=== PATIENT | female | born 1945 | race Caucasian/White ===

== ENCOUNTER 2021-06-13 12:06 | Inpatient (IN) ==
[2021-06-13] MEDS ORDERED: POLYETHYLENE (MIRALAX) 17 GM PACK PO PRN (13:27)
[2021-06-13] MEDS ORDERED: MAGNESIUM HYDROXIDE SUSP 30 ML UDC PO PRN (13:27)
--- NOTE | 2021-06-13 13:44 | History & Physical Report ---
Date of Service June 13, 2021 Assessment & Plan (1) Septic joint of right knee joint: Plan: Patient is 75-year-old female with history of chronic atrial fibrillation on Coumadin, SSS s/p pacemaker, CAD s/p PCI to RCA in 1998, DM II, HTN, dyslipidemia, CKD III, h/o Right TKA presented to [facility] as transfer from [facility] for right knee pain and edema and concern for right knee infection, fever. History RLE cellulitis treated 2 weeks ago with improvement. [facility] records: T: 38.1C, BP stable, Pulse 113-140. WBC of 13, Hgb 12.9, lactate and procalcitonin were WNL. CRP elevated at 15. Right knee x-ray obtained today at [facility]: No acute fracture, no acute hardware abnormality. At [facility] ER today ortho had aspirated right knee. Synovial fluid from today's aspiration: synovial fluid: Fluid clarity: Turbid, neutrophil %: 80% (0-25%), total nucleated cell count: 163,160 (0-180 cells/uL), RBC: 80,000 (<2000 cells/uL). Blood cultures were drawn today at [facility]. Follow these cultures. Patient given Zosyn, vancomycin, 1L NSS at [facility] prior to transfer Continue Zosyn, vancomycin IVF Requested to have xray images from [facility] to [facility] Ortho consult NPO midnight CBC, BMP in am (2) Chronic atrial fibrillation: Plan: Chronic atrial fibrillation on chronic Coumadin Atrial fibrillation RVR Patient had A. fib RVR at [facility]. Troponin T: WNL. Patient currently asymptomatic. Likely secondary to underlying infection and missed beta janusz medication Resume home metoprolol tartrate IV Lopressor prn INR: 2.9 Will need to optimize prior to surgical procedure Hold Coumadin secondary to surgical procedure. Monitor INR. (3) Diabetes mellitus, type II: Plan: A1c: 8.0 on 05/28/2021 Insulin-dependent Basal bolus insulin per protocol (4) CAD (coronary artery disease): Plan: Status post PCI to RCA 1998 Denies chest pain, shortness of breath Continue rosuvastatin, metoprolol tartrate (5) CKD (chronic kidney disease), stage III: Plan: Cr: 1.0. Baseline 1.0 Monitor renal functions, avoid nephrotoxic agents when possible (6) HTN (hypertension): Plan: Continue metoprolol tartrate (7) Sick sinus syndrome: Plan: S/p pacemaker (8) Dyslipidemia: Plan: Continue rosuvastatin DVT Prophylaxis INR currently therapeutic at 2.9. Monitor INR for further DVT prophylaxis Full code as per discussion with pt Follows with Dr Pino, Vitaliy Bourgeois for routine care Pt was seen and care coordinated with Dr Denson. See addendum History of Present Illness Chief Complaint: Right knee pain Primary Care Provider: Josiah Tran MD Patient is 75-year-old female with history of chronic atrial fibrillation on Coumadin, SSS s/p pacemaker, CAD s/p PCI to RCA in 1998, DM II, HTN, dyslipidemia, CKD III, h/o Right TKA presented to [facility] as transfer from [facility] for right knee pain and edema and concern for right knee infection. Outpatient records reviewed. Patient presented to [facility] today for right knee pain for 1 day and fever. Was noted to have T: 38.1C, BP stable, Pulse 113-140. Labs completed there today with WBC of 13, Hgb 12.9, lactate and procalcitonin were WNL. INR: 2.7, CRP elevated at 15. Right knee x-ray obtained today at [facility]: No acute fracture, no acute hardware abnormality. At [facility] ER today ortho had aspirated right knee with reported purulent fluid. Synovial fluid from today's aspiration: synovial fluid: Fluid clarity: Turbid, neutrophil %: 80% (0-25%), total nucleated cell count: 163,160 (0-180 cells/uL), RBC: 80,000 (<2000 cells/uL). Blood cultures were drawn today. Patient was given dose of Zosyn and vancomycin. Was given morphine 4mg, toradol 15mg, 1L NSS. Higher level of Ortho care was unavailable at [facility], patient request to be transferred to an [facility] secondary to prior TKA done by [facility]. Patient was admitted to [facility] on 05/27/2021- 05/30/2021 for possible sepsis, right lower extremity cellulitis. Patient had negative blood cultures on 05/27/2021. Patient finished linezolid 2 days ago. She denies any CP, SOB, palpitations. Other than her right knee pain denies other complaints. Did not have home medications today. Denies N/V/D/C, RAMIREZ, dizziness, syncope, vision changes, neck pain, orthopnea, cough, sore throat, choking, otalgia, rhinorrhea, abdominal pain, paresthesias, weakness, extremity weakness, rashes, urinary symptoms. Allergies Allergy/AdvReac Type Severity Reaction Status Date / Time propoxyphene Allergy Mild RASH Verified 04/21/09 03:21 diazepam Allergy Unknown SENSITIVITY Verified 04/21/09 03:21 meperidine AdvReac Mild "FEEL Verified 04/21/09 03:21 WEIRD" Home Medications Medication Instructions Recorded Confirmed Type alprazolam 0.25 mg tablet 0.25 mg PO HS PRN 06/13/21 06/13/21 History furosemide 40 mg tablet 40 mg PO DAILY PRN 06/13/21 06/13/21 History gabapentin 100 mg capsule 100 mg PO HS 06/13/21 06/13/21 History insulin glargine 100 unit/mL (3 40 unit SUBCUT BID 06/13/21 06/13/21 History mL) subcutaneous pen (Lantus Solostar U-100 Insulin) meloxicam 7.5 mg tablet 7.5 mg PO DAILY 06/13/21 06/13/21 History metoprolol tartrate 100 mg tablet 100 mg PO BID 06/13/21 06/13/21 History rosuvastatin 10 mg tablet 10 mg PO DAILY 06/13/21 06/13/21 History warfarin 1 mg tablet 1 mg PO UD 06/13/21 06/13/21 History warfarin 2 mg tablet 2 mg PO UD 06/13/21 06/13/21 History Past Med/Surg History Medical History (Updated 06/13/21 @ 21:09 by Mary Kumar PA-C) CAD (coronary artery disease) Chronic atrial fibrillation CKD (chronic kidney disease), stage III Diabetes mellitus, type II Dyslipidemia HTN (hypertension) Pacemaker Sick sinus syndrome Surgical History (Updated 06/13/21 @ 21:04 by Mary Kumar PA-C) History of appendectomy History of cardiac cath History of total knee arthroplasty Right - 2005. Dr Tran Family History (Updated 06/13/21 @ 21:04 by Mary Kumar PA-C) Mother Breast cancer Sister Breast cancer Social History (Updated 06/13/21 @ 21:05 by Mary Kumar PA-C) Smoking Status: Current some day smoker Cigarettes Per Day: 1; Hx Alcohol Use: Yes Alcohol Intake Frequency: Monthly or Less Hx Substance Use: No Communication Ability: Effective Dessert Cup Machine Feeder Required: No Beliefs That Will Affect Care: None Current Living Situation: Alone How many Children do You have: 3 Other Information That Helps Us Care for You: No Feels Safe at Home: Yes Safety Concerns: Feels Safe At This Time Assistive Devices: Cane and Walker Review of Systems Review of Systems: All systems reviewed & are unremarkable except as noted in HPI & below Physical Exam Physical Exam: General: no distress, obese Head: normocephalic, atraumatic Eyes: conjunctiva non-injected, anicteric ENT: normal inspection external ears, nose, mucous membranes moist Neck: supple, trachea midline Lungs: clear, no respiratory distress, no wheezing/rhonchi/rales CV: irregularly irregular, rate 132, no murmur, 1+ pretibial edema Abd: protuberant, normal BS, soft, non-tender Ext: no cyanosis, no calf tenderness, no erythema of lower legs, RLE: +edema and tenderness to palpation right knee Neuro: A&O x 3, no focal deficits noted, normal affect Skin: warm, dry Results & Data Results & Data ([facility]) Vital Signs (Past 12 Hours) Vital Signs Temp Pulse Resp BP Pulse Ox 38.1 C H 136 H 20 103/72 94 06/13/21 13:15 06/13/21 13:15 06/13/21 13:15 06/13/21 13:15 06/13/21 13:15 Laboratory Results Short CBC 06/13/21 Range/Units 14:59 WBC 20.87 H (4.8-10.8) K/uL Hgb 11.3 L (12.0-16.0) g/dL Hct 33.7 L (37-47) % Plt Count 86 L (130-400) K/uL BMP 06/13/21 14:59 Sodium 135 L Potassium 4.1 Chloride 104 Carbon Dioxide 24 BUN 25 H Creatinine 1.02 Glucose 91 Calcium 8.5 Liver Function 06/13/21 Range/Units 14:59 Total Bilirubin 1.5 H (0.2-1.0) mg/dl AST 22 (13-39) U/L ALT 19 (7-52) U/L Alkaline Phosphatase 67 (34-104) U/L Albumin 3.6 (3.4-5.0) gm/dl Diagnostic Findings Knee X-Ray 06/13/21 16:08 XR knee RT 1 or 2V routine CLINICAL HISTORY: right septic knee. Right knee pain. COMPARISON STUDY: Right knee 12/17/2005. FINDINGS: There is a right total knee arthroplasty. The hardware appears intact. No fracture or dislocation. No abnormal periprosthetic lucency. No significant knee effusion. There is anterior soft tissue swelling. IMPRESSION: 1. Anterior soft tissue swelling within the right knee. 2. Right total knee arthroplasty. No abnormal periprosthetic lucency. 3. No acute fractures. ACT 112: Negative or not required by law. Electronically signed by: Tho Finnegan M.D. 06/13/2021 9:03 PM Code Status & VTE Plan VTE Prophylaxis Plan VTE Prophylaxis will be ordered: Yes Supervising Physician Co-Signing Physician Notes Patient is a 75-year-old female with history of chronic atrial fibrillation on anticoagulation with Coumadin, coronary artery disease, CKD and other medical problems presents with history of right knee pain. Patient had right TKA many years ago. She denies any trauma. States having worsening right knee pain associated with fever, difficulty with ambulation. Please review HPI for complete details of presentation. Patient had arthrocentesis while at [facility]. Blood work suggestive of leukocytosis 20 K, hemoglobin 11.3, thrombocytopenia 86K, INR therapeutic at 2.9, sodium 135, glucose 102, lactate 2.1, magnesium 1.5, total bilirubin 1.5. X-ray suggestive of anterior soft tissue swelling within the right knee, no acute fractures. EKG suggestive of A. fib RVR. On exam patient is obese, no apparent distress, normocephalic atraumatic, EOMI, decreased breath sounds, clear to auscultation, irregularly irregular rhythm, tachycardic, no murmur, trace bilateral lower extremity edema, right knee swelling, tender. Abdomen soft, nontender, normal bowel sounds, alert, awake, oriented, grossly no focal deficits. Patient is admitted for management of right knee septic arthritis, A. fib RVR. Agree with starting on broad-spectrum antibiotics with Vanco, Zosyn. Blood cultures were obtained while at [facility]. Orthopedics consulted. Resume home metoprolol. IV Lopressor as needed. Will need to hold Coumadin for today. Consider reversing INR tomorrow with Vit K if patient plan for surgery tomorrow. Given A. fib RVR, no plan to reverse INR today. Consider cardiology evaluation if needed. I personally reviewed the record. Patient is interviewed and examined at bedside. Patient's care is coordinated with Mary Kumar PA-C. Please refer to the documentation above for details of patient's presentation and for discussion of other issues.
[2021-06-13] MEDS ORDERED: CARBOHYDRATES FOR HYPOGLYCEMIA PO PRN (14:19)
[2021-06-13] MEDS ORDERED: GLUCOSE 40% GEL 15 GM TUBE PO PRN (14:19)
[2021-06-13] MEDS ORDERED: GLUCAGON FOR INJ 1 MG VIAL SQ PRN (14:19)
[2021-06-13] MEDS ORDERED: DEXTROSE 50% 50 ML SYRINGE IV PRN (14:19)
[2021-06-13] MEDS ORDERED: GLUCOSE 10 TABS/TUBE PO PRN (14:19)
[2021-06-13] MEDS ORDERED: METOPROLOL TARTRATE 1 MG/ML VIAL IV STA (14:39)
[2021-06-13] MEDS ORDERED: oxyCODONE HCL IR 5 MG TAB (IMMEDIATE RELEASE) PO PRN (14:40)
[2021-06-13] MEDS ORDERED: CONSULT PHARMACY STA (14:55)
[2021-06-13] MEDS ORDERED: PATIENT'S HEIGHT AND/OR WEIGHT NEEDED SCH (15:15)
[2021-06-13] MEDS ORDERED: PIPERACILL/TAZOBAC CONSULT ACTIVE PRN (15:25)
[2021-06-13] MEDS ORDERED: VANCOMYCIN CONSULT ACTIVE PRN (15:25)
[2021-06-13 15:31] LABS: Albumin Globulin Ratio 1.1 (0.9-2); Albumin Level 3.6 gm/dl (3.4-5.0); BUN Creatinine Ratio 24.5 (10-20); Bilirubin,Total 1.5 mg/dl (0.2-1.0); Calcium 8.5 mg/dl (8.5-10.1); Creatinine Clr Calc Pharmacy 54.7 ml/min; Est GFR (African American) 62.3 ml/min; Est GFR (Non-African American) 53.8 ml/min; Globulin 3.2 gm/dl (2.5-4.0); Magnesium 1.5 mg/dl (1.7-2.4); Potassium 4.1 mmol/L (3.5-5.1); Total Protein 6.8 gm/dl (6.0-8.3)
[2021-06-13] MEDS: METOPROLOL TARTRATE 100 MG TAB PO SCH ×2 (15:48→21:15)
[2021-06-13 15:57] LABS: INR 2.9 (0.9-1.1); Partial Thromboplastin Ratio 1.6; Partial Thromboplastin Time 42.7 Seconds (21.0-31.0); Prothrombin Time 29.6 Seconds (9.0-12.0)
[2021-06-13] MEDS ORDERED: PIPERACILLIN/TAZOBACTAM 4.5 GM in DEXTROSE 5% 100 ML IV ONE (16:00)
[2021-06-13 16:11] LABS: Basophils # (auto) 0.01 K/uL (0-0.2); Hematocrit (blood only) 33.7 % (37-47); Hemoglobin 11.3 g/dL (12.0-16.0); Immature Granulocytes # (auto) 0.05 K/uL (0.00-0.02); Immature Granulocytes % (auto) 0.2 %; Lymphocytes # (auto) 2.01 K/uL (1.2-3.4); Lymphocytes % (auto) 9.6 %; Mean Corpuscular Hemoglobin 30.4 pg (25-34); Mean Corpuscular Hgb Conc 33.5 g/dL (32-36); Mean Corpuscular Volume 90.6 fL (80-100); Mean Platelet Volume 10.5 fL (7.4-10.4); Monocytes # (auto) 1.52 K/uL (0.11-0.59); Monocytes % (auto) 7.3 %; Neutrophils # (auto) 17.28 K/uL (1.4-6.5); Neutrophils % (auto) 82.9 %; Platelet Count 86 K/uL (130-400); Platelet Estimate Decreased (Normal); RDW Coefficient of Variation 13.8 % (11.5-14.5); RDW Standard Deviation 45.9 fL (36.4-46.3); Red Blood Count 3.72 M/uL (4.2-5.4); White Blood Count 20.87 K/uL (4.8-10.8)
[2021-06-13] MEDS ORDERED: PIPERACILLIN/TAZOBACTAM 4.5 GM in DEXTROSE 5% 100 ML IV SCH ×2 (16:30→22:00)
--- NOTE | 2021-06-13 17:07 | Anesthesiology Consultation ---
Date of Service June 13, 2021 Assessment & Plan (1) Encounter for pre-operative examination: Chart Review Chart Review: Pending: Refer to Additional Notes / Consult section and Patient NOT seen in Pre Admission Testing Patient currently in Afib with RVR, not optimized for proposed procedure, recommend optimization of arrhythmia prior to planned procedure Consults Requested none History Surgery Operation Date: 06/14/21 07:55 Proposed Procedures p Right Knee Polyethylene Bearing Exchange, Irrigation and Debridement Total Knee Arthroplasty - Josiah Tran MD Height/Weight Height: 5 ft 4 in Weight: 99.79 kg Allergies Allergy/AdvReac Type Severity Reaction Status Date / Time propoxyphene Allergy Mild RASH Verified 04/21/09 03:21 diazepam Allergy Unknown SENSITIVITY Verified 04/21/09 03:21 meperidine AdvReac Mild "FEEL Verified 04/21/09 03:21 WEIRD" Medications Home Medications Medication Instructions Recorded Confirmed Last Taken alprazolam 0.25 mg tablet 0.25 mg PO HS PRN 06/13/21 06/13/21 Unknown furosemide 40 mg tablet 40 mg PO DAILY PRN 06/13/21 06/13/21 Unknown gabapentin 100 mg capsule 100 mg PO HS 06/13/21 06/13/21 Unknown insulin glargine 100 unit/mL (3 40 unit SUBCUT BID 06/13/21 06/13/21 Unknown mL) subcutaneous pen (Lantus Solostar U-100 Insulin) meloxicam 7.5 mg tablet 7.5 mg PO DAILY 06/13/21 06/13/21 Unknown metoprolol tartrate 100 mg tablet 100 mg PO BID 06/13/21 06/13/21 06/12/21 rosuvastatin 10 mg tablet 10 mg PO DAILY 06/13/21 06/13/21 06/12/21 warfarin 1 mg tablet 1 mg PO UD 06/13/21 06/13/21 Unknown warfarin 2 mg tablet 2 mg PO UD 06/13/21 06/13/21 06/12/21 Active Medications Generic Name Dose Route Start Last Admin Trade Name Freq PRN Reason Stop Dose Admin Metoprolol Tartrate 100 mg 06/13/21 14:40 06/13/21 15:48 Metoprolol Tartrate 100 Mg Tab PO 07/13/21 14:39 100 mg BID NUPUR Administration Social History Smoking Status: Current some day smoker tobacco type: cigarettes Smoking cigarettes per day: 1 Hx Alcohol Use: Yes alcohol intake frequency: holidays/special occasions only Hx Substance Use: No Physical Exam Vital Signs Last Vital Signs Temp 99.7 F H 06/13/21 15:26 Pulse 150 H 06/13/21 15:48 Resp 20 06/13/21 15:26 BP 136/83 06/13/21 15:48 Pulse Ox 96 06/13/21 15:26 Testing Laboratory Results 06/13/21 14:59 06/13/21 14:59 PT 29.6 Seconds (9.0-12.0) H 06/13/21 14:59 INR 2.9 (0.9-1.1) H 06/13/21 14:59 APTT 42.7 Seconds (21.0-31.0) H 06/13/21 14:59 06/13/21 06/13/21 16:17 14:06 POC Glucose 102 H 96 Electrocardiogram Date: 06/13/21 Findings: + AFIB @ (with RVR), + LBBB and + RBBB
--- NOTE | 2021-06-13 17:11 | Pharmacy Report ---
Pharmacy Vanc AUC Short Note - Date of Service June 13, 2021 - Assessment & Plan Assessment 75 year old F receiving IV vancomycin and zosyn for treatment of bone and joint infection. Pertinent microbiologic data includes: none. Day # 1 of antimicrobial therapy. * Patient was transferred from [facility] for right knee pain and concern for right knee infection * Lab results shows leukocytosis, ANNEL, and elevated lactate * Loading doses of vancomycin and zosyn were administered at [facility] ER Plan Vancomycin * AUC/ERICA is the preferred PK/PD target for vancomycin * AUC guided dosing is effective and associated with decreased risk of nephrotoxicity compared to traditional trough targets * Loading dose: 2500 mg IV x 1 at [facility] * Maintenance dose: 1750 mg IV q24h * Trough level of 16 mcg/mL is predicted to achieve target AUC/ERICA of 400-600 mg/L.hr and may be associated with a 11 % risk of nephrotoxicity * Trough level would be obtained at steady state or sooner if renal function changes significantly Pharmacy will continue to follow and will adjust dose/frequency as necessary. Thank you.
--- NOTE | 2021-06-13 17:15 | Orthopedic Consultation ---
Date of Consultation June 13, 2021 Assessment & Plan (1) Infection of total right knee replacement: By history acute infection right knee replacement. Patient had primary knee replacement 2005 with revision total knee or components. This was performed due to the severity of the arthritis and instability. Patient is done excellent over the years. X-rays pending. Due to the acuity of the infection and patient being septic she is placed on intravenous antibiotics pending correction of her anticoagulation status and then could undergo polyethylene exchange and irrigation debridement placement of antibiotic beads. Discussed with her that this may correct the situation but if infection continues would have to have all implants removed and an antibiotic spacer. If the components look to be loose and she is going to need to go directly to an antibiotic spacer. If condition deteriorates rapidly she may need to be transferred to [facility] for definitive treatment History of Present Illness Reason for Consultation: Septic right knee replacement Attending Physician: Andre Denson MD History of Present Illness 75-year-old female had history of cellulitis in her right leg about a month ago and has an ipsilateral total knee replacement placed in 2005. She had no problems with the knee at all until 2 days ago when she had increased pain and swelling and had aspirated at [facility] felt to be septic and transferred to [facility] for definitive care. Allergies Allergy/AdvReac Type Severity Reaction Status Date / Time propoxyphene Allergy Mild RASH Verified 04/21/09 03:21 diazepam Allergy Unknown SENSITIVITY Verified 04/21/09 03:21 meperidine AdvReac Mild "FEEL Verified 04/21/09 03:21 WEIRD" Home Medications Medication Instructions Recorded Confirmed Type alprazolam 0.25 mg tablet 0.25 mg PO HS PRN 06/13/21 06/13/21 History furosemide 40 mg tablet 40 mg PO DAILY PRN 06/13/21 06/13/21 History gabapentin 100 mg capsule 100 mg PO HS 06/13/21 06/13/21 History insulin glargine 100 unit/mL (3 40 unit SUBCUT BID 06/13/21 06/13/21 History mL) subcutaneous pen (Lantus Solostar U-100 Insulin) meloxicam 7.5 mg tablet 7.5 mg PO DAILY 06/13/21 06/13/21 History metoprolol tartrate 100 mg tablet 100 mg PO BID 06/13/21 06/13/21 History rosuvastatin 10 mg tablet 10 mg PO DAILY 06/13/21 06/13/21 History warfarin 1 mg tablet 1 mg PO UD 06/13/21 06/13/21 History warfarin 2 mg tablet 2 mg PO UD 06/13/21 06/13/21 History Patient History Social History Smoking Status: Current some day smoker Cigarettes Per Day: 1; Hx Alcohol Use: Yes Hx Substance Use: No Communication Ability: Effective Core Carrier Required: No Beliefs That Will Affect Care: None Current Living Situation: Alone How many Children do You have: 3 Other Information That Helps Us Care for You: No Feels Safe at Home: Yes Safety Concerns: Feels Safe At This Time Assistive Devices: Cane and Walker Review of Systems Review of Systems: In her usual state of health with no other complaints other than right knee pain disability. Currently does not feel sick other than some indigestion. No lightheadedness no chest pain. Physical Exam Physical Exam: Right knee has benign-appearing in incisional scar no erythema she does have swelling in the knee. There is no drainage no sinus tract. Cellulitis of right lower leg is resolved. She has mild edema in the lower extremity. Neurological exam is intact. Opposite leg is normal. Both legs are obese. Knee motion right knee she can fully extend it due to pain with range of motion 15 through 90 degrees at this time. Constitutional: Obesity BMI 37.8 Skin: Chronic mild skin discoloration pretibial area medially on the right lower leg but no erythema at this time. Results & Data ([facility]) Vital Signs (Past 12 Hours) Vital Signs Temp Pulse Pulse Resp BP BP Pulse Ox 06/13/21 15:48 150 H 136/83 06/13/21 15:26 37.6 C H 150 H 20 136/83 96 06/13/21 14:08 138 H 06/13/21 13:27 38.1 C H 136 H 20 103/72 94 06/13/21 13:15 38.1 C H 136 H 20 103/72 94 Pulse Ox 06/13/21 15:48 06/13/21 15:26 06/13/21 14:08 06/13/21 13:27 94 06/13/21 13:15 Laboratory Results White blood cell count 20.87, platelet count 86,000 Diagnostic Findings X-ray pending. Apparently by history images were obtained at [place] emergency room. Do not have access to laboratory results as of yet from knee aspiration.
[2021-06-13] MEDS ORDERED: MAGNESIUM SULFATE / D5W 1 GM/100 ML BAG IV ONE (17:30)
[2021-06-13] MEDS: INSULIN ASPART PER UNIT SC SCH ×2 (17:32→21:59)
[2021-06-13] MEDS: MoRPHine SULFATE 2 MG/ML CARP IV PRN (17:44)
--- NOTE | 2021-06-13 21:05 | XRay Report ---
XR knee RT 1 or 2V routine CLINICAL HISTORY: right septic knee. Right knee pain. COMPARISON STUDY: Right knee 12/17/2005. FINDINGS: There is a right total knee arthroplasty. The hardware appears intact. No fracture or dislo cation. No abnormal periprosthetic lucency. No significant knee effusion. There is anterior soft tiss ue swelling. IMPRESSION: 1. Anterior soft tissue swelling within the right knee. 2. Right total knee arthroplasty. No abnormal periprosthetic lucency. 3. No acute fractures. ACT 112: Negative or not required by law. Electronically signed by: Tho Finnegan M.D. 06/13/2021 9:03 PM
[2021-06-13] MEDS: GABAPENTIN 100 MG CAP PO SCH (21:14)
[2021-06-13] MEDS ORDERED: SODIUM CHLORIDE 0.9% 1000ML 1,000 ML IV SCH (21:15)
--- NOTE | 2021-06-13 21:17 | Electrocardiogram Report ---
Test Reason : Blood Pressure : / mmHG Vent. Rate : 129 BPM Atrial Rate : 147 BPM P-R Int : 000 ms QRS Dur : 124 ms QT Int : 310 ms P-R-T Axes : 000 110 008 degrees QTc Int : 454 ms Atrial fibrillation with rapid ventricular response Right bundle branch block Left posterior fascicular block Bifascicular block T wave abnormality, consider anterolateral ischemia Abnormal ECG When compared with ECG of 16-AUG-1997 11:47, Atrial fibrillation has replaced Sinus rhythm Vent. rate has increased BY 65 BPM (RBBB and left posterior fascicular block) is now Present Confirmed by Justice Shipley [id number] on 06/13/2021 9:16:29 PM Referred By: REFERRED SELF Confirmed By:Justice Shipley
[2021-06-13] MEDS: INSULIN GLARGINE SOLOSTAR 100 UNITS/ML 3 ML PEN SC SCH (21:58)
[2021-06-13] MEDS: PIPERACILLIN/TAZOBACTAM 4.5 GM in DEXTROSE 5% 100 ML IV SCH (23:27)
[2021-06-14] MEDS: METOPROLOL TARTRATE 1 MG/ML VIAL IV PRN ×2 (04:02→09:33)
[2021-06-14 07:43] LABS: Hematocrit (blood only) 30.5 % (37-47); Hemoglobin 10.5 g/dL (12.0-16.0); Mean Corpuscular Hemoglobin 30.8 pg (25-34); Mean Corpuscular Hgb Conc 34.4 g/dL (32-36); Mean Corpuscular Volume 89.4 fL (80-100); RDW Coefficient of Variation 14.2 % (11.5-14.5); RDW Standard Deviation 47.1 fL (36.4-46.3); Red Blood Count 3.41 M/uL (4.2-5.4); White Blood Count 17.08 K/uL (4.8-10.8)
[2021-06-14 07:51] LABS: Platelet Count 80 K/uL (130-400)
[2021-06-14 07:59] LABS: INR 2.2 (0.9-1.1); Prothrombin Time 22.4 Seconds (9.0-12.0)
[2021-06-14 08:48] LABS: BUN Creatinine Ratio 19.3 (10-20); Calcium 8.2 mg/dl (8.5-10.1); Creatinine Clr Calc Pharmacy 34.7 ml/min; Est GFR (African American) 35.9 ml/min; Magnesium 1.9 mg/dl (1.7-2.4); Potassium 4.2 mmol/L (3.5-5.1)
[2021-06-14] MEDS: ACETAMINOPHEN 325 MG TAB PO PRN (09:03)
[2021-06-14] MEDS: ROSUVASTATIN CALCIUM 10 MG TAB PO SCH (09:03)
[2021-06-14] MEDS: METOPROLOL TARTRATE 100 MG TAB PO SCH (09:03)
[2021-06-14] MEDS: INSULIN GLARGINE SOLOSTAR 100 UNITS/ML 3 ML PEN SC SCH ×2 (09:04→22:02)
[2021-06-14] MEDS: INSULIN ASPART PER UNIT SC SCH ×4 (09:05→22:02)
[2021-06-14] MEDS: PIPERACILLIN/TAZOBACTAM 4.5 GM in DEXTROSE 5% 100 ML IV SCH ×3 (09:20→23:10)
[2021-06-14] MEDS ORDERED: VANCOMYCIN HCL 1,750 MG in SODIUM CHLORIDE 0.9% 500 ML IV SCH (11:00)
[2021-06-14] MEDS ORDERED: PHYTONADIONE 5 MG in DEXTROSE 5% 50 ML IV ONE (11:30)
--- NOTE | 2021-06-14 11:30 | Cardiology Consultation ---
Date of Consultation June 14, 2021 Assessment & Plan (1) Septic joint of right knee joint: (2) Preop cardiovascular exam: (3) HTN (hypertension): (4) Atrial fibrillation with RVR: (5) Pacemaker: Patient admitted for septic knee joint. Start on broad spectrum antibiotics. Ortho consulted and plans for debridement of joint with placement of antibiotic beads. ' Pre op eval cardio eval requested due to afib with elevated ventricular rates. She has known, chronic afib. Ventricular rates are elevated due to sepsis, physiologic response. Will titrate metoprolol to 150 mg BID, at least temporarily, to aid with ventricular rates. She received 100 mg dose this morning and then received 50 mg at time of consult earlier today. Heart rates trending down on monitor. She has underlying single lead pacemaker in place, which would prevent any bradycardia with additional metoprolol. She is asymptomatic from cardiac perspective. No signs of CHF. No anginal complaints. Can also use IV metoprolol PRN for elevated rates. Hold coumadin for surgery. No further cardiac testing is warranted prior to planned ortho surgery. Case discussed with Dr. Del Valle. Will follow. Supervising Physician Co-Signing Physician Notes Patient seen and examined at the bedside. Unaware of her atrial fibrillation. Heart rate improved with titration of beta-janusz therapy. Denies chest pain, palpitations, or shortness of breath. Admitted with septic arthritis. PE: VSS. General: NAD, awake alert and orient x3. Heart: Irregular rhythm, borderline tachycardic, normal S1-S2. No murmur appreciated. Lungs: Clear bilateral, no rales, rhonchi, wheeze. Extremities: Right knee swelling. A/P: Agree with above PA-C history, physical exam, assessment and plan. Metoprolol titrated to 150 mg twice daily with improvement of heart rate control. Consider addition of diltiazem infusion if heart rate remains elevated despite titration of beta-janusz therapy. Single-chamber pacemaker in place to prevent bradycardia. INR is 2.2. Patient received 1 dose of 5 mg of vitamin K. No further cardiac testing or intervention is necessary prior to orthopedic procedure. History of Present Illness Reason for Consultation: Afib RVR Requesting Physician: Dr. Stovall Attending Physician: Dr. Del Valle History of Present Illness Patient is a 75 year old female who was admitted to [facility] for septic right knee joint. She is known to [facility] cardiology [employer] practice for history of chronic afib, sinus node dysfunction s/p single lead pacemaker, CAD s/p remote PCI to the RCA in 1998, dyslipidemia. Cardiology was consulted to due atrial fibrillation with elevated ventricular rates and preop eval. Patient report right lower extremity cellulitis for which she was admitted to [facility] approx 2 weeks ago and received IV antibiotics and oral antibiotics on discharge. During admission she was hypertensive and tachycardic but no med changes were made to beta janusz or antihypertensives on discharge. Yesterday she presented to [facility] once again for worsening right leg and knee pain and swelling. Found to have septic joint and transferred to [facility] for further evaluation/treatment with orthopedics. Started on IV antibiotics. Ortho consulted and plans to take to OR for debridement and placement of antibiotic beads. Due to afib with elevated ventricular rates, anesthesiology requesting cardiac evaluation. HR's ranging 110-140 at rest. Chronic afib. Coumadin on hold. At time of consult, patient feeling ok resting in bed. Denies chest pain or SOB. No fever or chills. No orthopnea, PND or edema. HR's ranging around 110 bpm. No erythema at pacer site. Ongoing right leg pain and knee pain noted. She is NPO for OR hopefully today. Allergies Allergy/AdvReac Type Severity Reaction Status Date / Time propoxyphene Allergy Mild RASH Verified 04/21/09 03:21 diazepam Allergy Unknown SENSITIVITY Verified 04/21/09 03:21 meperidine AdvReac Mild "FEEL Verified 04/21/09 03:21 WEIRD" Home Medications Medication Instructions Recorded Confirmed Type alprazolam 0.25 mg tablet 0.25 mg PO HS PRN 06/13/21 06/13/21 History furosemide 40 mg tablet 40 mg PO DAILY PRN 06/13/21 06/13/21 History gabapentin 100 mg capsule 100 mg PO HS 06/13/21 06/13/21 History insulin glargine 100 unit/mL (3 40 unit SUBCUT BID 06/13/21 06/13/21 History mL) subcutaneous pen (Lantus Solostar U-100 Insulin) meloxicam 7.5 mg tablet 7.5 mg PO DAILY 06/13/21 06/13/21 History metoprolol tartrate 100 mg tablet 100 mg PO BID 06/13/21 06/13/21 History rosuvastatin 10 mg tablet 10 mg PO DAILY 06/13/21 06/13/21 History warfarin 1 mg tablet 1 mg PO UD 06/13/21 06/13/21 History warfarin 2 mg tablet 2 mg PO UD 06/13/21 06/13/21 History Patient History Medical History (Updated 06/14/21 @ 13:16 by Myrna Azevedo PA-C) CAD (coronary artery disease) Chronic atrial fibrillation CKD (chronic kidney disease), stage III Diabetes mellitus, type II Dyslipidemia HTN (hypertension) Pacemaker Sick sinus syndrome Surgical History (Updated 06/13/21 @ 21:04 by Mary Kumar PA-C) History of appendectomy History of cardiac cath History of total knee arthroplasty Right - 2005. Dr Tran Family History (Updated 06/13/21 @ 21:04 by Mary Kumar PA-C) Mother Breast cancer Sister Breast cancer Social History (Updated 06/13/21 @ 21:05 by Mary Kumar PA-C) Smoking Status: Current some day smoker Cigarettes Per Day: 1; Hx Alcohol Use: Yes Alcohol Intake Frequency: Monthly or Less Hx Substance Use: No Communication Ability: Effective Computer Art Instructor Required: No Beliefs That Will Affect Care: None Current Living Situation: Alone How many Children do You have: 3 Other Information That Helps Us Care for You: No Feels Safe at Home: Yes Safety Concerns: Feels Safe At This Time Assistive Devices: Cane and Walker Review of Systems Review of Systems: All systems reviewed & are unremarkable except as noted in HPI & below Physical Exam Constitutional: WD/WN, vitals as above well developed; no acute distress Respiratory: normal respiratory effort, lungs clear to auscultation Cardiovascular: Rate/Rhythm: + tachycardic and + irregularly irregular Heart Sounds: normal S1 and normal S2; no murmur Vessels: no JVD Extremities: + edema (trace b/l ankle edema; ) Gastrointestinal (Abdomen): normal bowel sounds, soft, nontender, no hepatosplenomegaly Neurologic: PERRL, EOMI, accommodation nl, no face palsy, no dysarthria Psychiatric: A+Ox3, euthymic affect Results & Data ([facility]) Vital Signs (Past 12 Hours) Vital Signs Temp Pulse Pulse Resp BP BP Pulse Ox 06/14/21 09:33 142 H 148/79 H 06/14/21 08:08 37.8 C H 137 H 20 137/78 93 06/14/21 04:02 133 H 06/14/21 03:27 37.7 C H 121 H 16 115/66 96 06/14/21 03:23 118 H Laboratory Results 06/14/21 06/14/21 06/14/21 Range/Units 11:11 07:22 06:55 WBC (4.8-10.8) K/uL RBC (4.2-5.4) M/uL Hgb (12.0-16.0) g/dL Hct (37-47) % MCV (80-100) fL MCH (25-34) pg MCHC (32-36) g/dL RDW Std Deviation (36.4-46.3) fL RDW Coeff of Kavon (11.5-14.5) % Plt Count (130-400) K/uL MPV (7.4-10.4) fL Immature Gran % (Auto) % Neut % (Auto) % Lymph % (Auto) % Benzie % (Auto) % Eos % (Auto) % Baso % (Auto) % Neut # (Auto) (1.4-6.5) K/uL Lymph # (Auto) (1.2-3.4) K/uL Benzie # (Auto) (0.11-0.59) K/uL Eos # (Auto) (0-0.5) K/uL Baso # (Auto) (0-0.2) K/uL Immature Gran # (Auto) (0.00-0.02) K/uL Platelet Estimate (Normal) PT (9.0-12.0) Seconds INR (0.9-1.1) APTT (21.0-31.0) Seconds PTT Ratio Sodium 135 L (136-145) mmol/L Potassium 4.2 (3.5-5.1) mmol/L Chloride 104 (98-107) mmol/L Carbon Dioxide 23 (21-32) mmol/L Anion Gap 8 (3-11) BUN 31 H (6-23) mg/dl Creatinine 1.61 H D (0.6-1.2) mg/dl Est Cr Clr Drug Dosing 34.7 ml/min Est GFR ( Amer) 35.9 ml/min Est GFR (Non-Af Amer) 31.0 ml/min BUN/Creatinine Ratio 19.3 (10-20) Glucose 84 (70-99(Fasting)) mg/dl POC Glucose 114 H 102 H (70-99) mg/dl Lactate (0.4-2.0) mmol/L Calcium 8.2 L (8.5-10.1) mg/dl Magnesium 1.9 (1.7-2.4) mg/dl Total Bilirubin (0.2-1.0) mg/dl AST (13-39) U/L ALT (7-52) U/L Alkaline Phosphatase (34-104) U/L Total Protein (6.0-8.3) gm/dl Albumin (3.4-5.0) gm/dl Globulin (2.5-4.0) gm/dl Albumin/Globulin Ratio (0.9-2) SARS-CoV-2, RNA, NAAT (NEGATIVE) 06/14/21 06/14/21 06/13/21 Range/Units 06:55 06:55 22:18 WBC 17.08 H (4.8-10.8) K/uL RBC 3.41 L (4.2-5.4) M/uL Hgb 10.5 L (12.0-16.0) g/dL Hct 30.5 L (37-47) % MCV 89.4 (80-100) fL MCH 30.8 (25-34) pg MCHC 34.4 (32-36) g/dL RDW Std Deviation 47.1 H (36.4-46.3) fL RDW Coeff of Kavon 14.2 (11.5-14.5) % Plt Count 80 L (130-400) K/uL MPV 11.0 H (7.4-10.4) fL Immature Gran % (Auto) % Neut % (Auto) % Lymph % (Auto) % Benzie % (Auto) % Eos % (Auto) % Baso % (Auto) % Neut # (Auto) (1.4-6.5) K/uL Lymph # (Auto) (1.2-3.4) K/uL Benzie # (Auto) (0.11-0.59) K/uL Eos # (Auto) (0-0.5) K/uL Baso # (Auto) (0-0.2) K/uL Immature Gran # (Auto) (0.00-0.02) K/uL Platelet Estimate (Normal) PT 22.4 H (9.0-12.0) Seconds INR 2.2 H (0.9-1.1) APTT (21.0-31.0) Seconds PTT Ratio Sodium (136-145) mmol/L Potassium (3.5-5.1) mmol/L Chloride (98-107) mmol/L Carbon Dioxide (21-32) mmol/L Anion Gap (3-11) BUN (6-23) mg/dl Creatinine (0.6-1.2) mg/dl Est Cr Clr Drug Dosing ml/min Est GFR ( Amer) ml/min Est GFR (Non-Af Amer) ml/min BUN/Creatinine Ratio (10-20) Glucose (70-99(Fasting)) mg/dl POC Glucose (70-99) mg/dl Lactate 1.6 (0.4-2.0) mmol/L Calcium (8.5-10.1) mg/dl Magnesium (1.7-2.4) mg/dl Total Bilirubin (0.2-1.0) mg/dl AST (13-39) U/L ALT (7-52) U/L Alkaline Phosphatase (34-104) U/L Total Protein (6.0-8.3) gm/dl Albumin (3.4-5.0) gm/dl Globulin (2.5-4.0) gm/dl Albumin/Globulin Ratio (0.9-2) SARS-CoV-2, RNA, NAAT (NEGATIVE) 06/13/21 06/13/21 06/13/21 Range/Units 20:50 17:30 16:17 WBC (4.8-10.8) K/uL RBC (4.2-5.4) M/uL Hgb (12.0-16.0) g/dL Hct (37-47) % MCV (80-100) fL MCH (25-34) pg MCHC (32-36) g/dL RDW Std Deviation (36.4-46.3) fL RDW Coeff of Kavon (11.5-14.5) % Plt Count (130-400) K/uL MPV (7.4-10.4) fL Immature Gran % (Auto) % Neut % (Auto) % Lymph % (Auto) % Benzie % (Auto) % Eos % (Auto) % Baso % (Auto) % Neut # (Auto) (1.4-6.5) K/uL Lymph # (Auto) (1.2-3.4) K/uL Benzie # (Auto) (0.11-0.59) K/uL Eos # (Auto) (0-0.5) K/uL Baso # (Auto) (0-0.2) K/uL Immature Gran # (Auto) (0.00-0.02) K/uL Platelet Estimate (Normal) PT (9.0-12.0) Seconds INR (0.9-1.1) APTT (21.0-31.0) Seconds PTT Ratio Sodium (136-145) mmol/L Potassium (3.5-5.1) mmol/L Chloride (98-107) mmol/L Carbon Dioxide (21-32) mmol/L Anion Gap (3-11) BUN (6-23) mg/dl Creatinine (0.6-1.2) mg/dl Est Cr Clr Drug Dosing ml/min Est GFR ( Amer) ml/min Est GFR (Non-Af Amer) ml/min BUN/Creatinine Ratio (10-20) Glucose (70-99(Fasting)) mg/dl POC Glucose 155 H 102 H (70-99) mg/dl Lactate (0.4-2.0) mmol/L Calcium (8.5-10.1) mg/dl Magnesium (1.7-2.4) mg/dl Total Bilirubin (0.2-1.0) mg/dl AST (13-39) U/L ALT (7-52) U/L Alkaline Phosphatase (34-104) U/L Total Protein (6.0-8.3) gm/dl Albumin (3.4-5.0) gm/dl Globulin (2.5-4.0) gm/dl Albumin/Globulin Ratio (0.9-2) SARS-CoV-2, RNA, NAAT NEGATIVE (NEGATIVE) 06/13/21 06/13/21 06/13/21 Range/Units 14:59 14:59 14:59 WBC (4.8-10.8) K/uL RBC (4.2-5.4) M/uL Hgb (12.0-16.0) g/dL Hct (37-47) % MCV (80-100) fL MCH (25-34) pg MCHC (32-36) g/dL RDW Std Deviation (36.4-46.3) fL RDW Coeff of Kavon (11.5-14.5) % Plt Count (130-400) K/uL MPV (7.4-10.4) fL Immature Gran % (Auto) % Neut % (Auto) % Lymph % (Auto) % Benzie % (Auto) % Eos % (Auto) % Baso % (Auto) % Neut # (Auto) (1.4-6.5) K/uL Lymph # (Auto) (1.2-3.4) K/uL Benzie # (Auto) (0.11-0.59) K/uL Eos # (Auto) (0-0.5) K/uL Baso # (Auto) (0-0.2) K/uL Immature Gran # (Auto) (0.00-0.02) K/uL Platelet Estimate (Normal) PT (9.0-12.0) Seconds INR (0.9-1.1) APTT (21.0-31.0) Seconds PTT Ratio Sodium 135 L (136-145) mmol/L Potassium 4.1 (3.5-5.1) mmol/L Chloride 104 (98-107) mmol/L Carbon Dioxide 24 (21-32) mmol/L Anion Gap 7 (3-11) BUN 25 H (6-23) mg/dl Creatinine 1.02 (0.6-1.2) mg/dl Est Cr Clr Drug Dosing 54.7 ml/min Est GFR ( Amer) 62.3 ml/min Est GFR (Non-Af Amer) 53.8 ml/min BUN/Creatinine Ratio 24.5 H (10-20) Glucose 91 (70-99(Fasting)) mg/dl POC Glucose (70-99) mg/dl Lactate 2.1 H* (0.4-2.0) mmol/L Calcium 8.5 (8.5-10.1) mg/dl Magnesium Cancelled 1.5 L (1.7-2.4) mg/dl Total Bilirubin 1.5 H (0.2-1.0) mg/dl AST 22 (13-39) U/L ALT 19 (7-52) U/L Alkaline Phosphatase 67 (34-104) U/L Total Protein 6.8 (6.0-8.3) gm/dl Albumin 3.6 (3.4-5.0) gm/dl Globulin 3.2 (2.5-4.0) gm/dl Albumin/Globulin Ratio 1.1 (0.9-2) SARS-CoV-2, RNA, NAAT (NEGATIVE) 06/13/21 06/13/21 06/13/21 Range/Units 14:59 14:59 14:06 WBC 20.87 H (4.8-10.8) K/uL RBC 3.72 L (4.2-5.4) M/uL Hgb 11.3 L (12.0-16.0) g/dL Hct 33.7 L (37-47) % MCV 90.6 (80-100) fL MCH 30.4 (25-34) pg MCHC 33.5 (32-36) g/dL RDW Std Deviation 45.9 (36.4-46.3) fL RDW Coeff of Kavon 13.8 (11.5-14.5) % Plt Count 86 L (130-400) K/uL MPV 10.5 H (7.4-10.4) fL Immature Gran % (Auto) 0.2 % Neut % (Auto) 82.9 % Lymph % (Auto) 9.6 % Benzie % (Auto) 7.3 % Eos % (Auto) 0.0 % Baso % (Auto) 0.0 % Neut # (Auto) 17.28 H (1.4-6.5) K/uL Lymph # (Auto) 2.01 (1.2-3.4) K/uL Benzie # (Auto) 1.52 H (0.11-0.59) K/uL Eos # (Auto) 0.00 (0-0.5) K/uL Baso # (Auto) 0.01 (0-0.2) K/uL Immature Gran # (Auto) 0.05 H (0.00-0.02) K/uL Platelet Estimate Decreased L (Normal) PT 29.6 H (9.0-12.0) Seconds INR 2.9 H (0.9-1.1) APTT 42.7 H (21.0-31.0) Seconds PTT Ratio 1.6 Sodium (136-145) mmol/L Potassium (3.5-5.1) mmol/L Chloride (98-107) mmol/L Carbon Dioxide (21-32) mmol/L Anion Gap (3-11) BUN (6-23) mg/dl Creatinine (0.6-1.2) mg/dl Est Cr Clr Drug Dosing ml/min Est GFR ( Amer) ml/min Est GFR (Non-Af Amer) ml/min BUN/Creatinine Ratio (10-20) Glucose (70-99(Fasting)) mg/dl POC Glucose 96 (70-99) mg/dl Lactate (0.4-2.0) mmol/L Calcium (8.5-10.1) mg/dl Magnesium (1.7-2.4) mg/dl Total Bilirubin (0.2-1.0) mg/dl AST (13-39) U/L ALT (7-52) U/L Alkaline Phosphatase (34-104) U/L Total Protein (6.0-8.3) gm/dl Albumin (3.4-5.0) gm/dl Globulin (2.5-4.0) gm/dl Albumin/Globulin Ratio (0.9-2) SARS-CoV-2, RNA, NAAT (NEGATIVE) Diagnostic Findings Telemetry reviewed - Persistent afib with elevated ventricular rates, initially 120-140, but now trending down to 100-120. EKG on arrival Atrial fibrillation with RVR RBBB ST/T wave abnormality in anterolateral leads. Chest xray completed at outside facility yesterday: No acute process. Medications Administered Current Inpatient Medications Acetaminophen (Acetaminophen 325 Mg Tab) 650 mg PO Q4H PRN PRN Reason: Pain or Fever Stop: 07/13/21 13:26 Last Admin: 06/14/21 09:03 Dose: 650 mg Documented by: Alprazolam (Alprazolam 0.25 Mg Tablet) 0.25 mg PO HS PRN PRN Reason: Anxiety Stop: 07/13/21 17:36 Dextrose (Dextrose 50% 50 Ml Syringe) 25 - 50 ml IV UD PRN; Protocol PRN Reason: Hypoglycemia Protocol Stop: 07/13/21 14:18 Gabapentin (Gabapentin 100 Mg Cap) 100 mg PO HS [facility] Stop: 07/13/21 20:59 Last Admin: 06/13/21 21:14 Dose: 100 mg Documented by: Glucagon (Glucagon For Inj 1 Mg Vial) 1 mg SQ UD PRN; Protocol PRN Reason: Hypoglycemia Protocol Stop: 07/13/21 14:18 Glucose (Glucose 10 Tabs/Tube) 4 - 8 tabs PO UD PRN; Protocol PRN Reason: Hypoglycemia Protocol Stop: 07/13/21 14:18 Glucose (Glucose 40% Gel 15 Gm Tube) 15 - 30 gm PO UD PRN; Protocol PRN Reason: Hypoglycemia Protocol Stop: 07/13/21 14:18 Piperacillin Sod/Tazobactam (Sod 4.5 gm/ Dextrose) 120 mls @ 30 mls/hr IV Q8H NUPUR; Protocol Stop: 07/26/21 00:00 Last Admin: 06/14/21 09:20 Dose: 30 mls/hr Documented by: Sodium Chloride (Nss 1000ml) 1,000 mls @ 100 mls/hr IV .Q10H [facility] Stop: 07/14/21 11:14 Last Admin: 06/14/21 12:07 Dose: 100 mls/hr Documented by: Insulin Aspart (Insulin Aspart Per Unit) 0 units SC ACHS NUPUR Stop: 07/13/21 16:29 Last Admin: 06/14/21 12:07 Dose: Not Given Documented by: Insulin Glargine (Insulin Glargine Solostar 100 Units/Ml 3 Ml Pen) 0 - 40 units SC BID [facility] Stop: 07/13/21 20:59 Last Admin: 06/14/21 09:04 Dose: 20 units Documented by: Magnesium Hydroxide (Magnesium Hydroxide Susp 30 Ml Udc) 30 ml PO Q12H PRN PRN Reason: Constipation Stop: 07/13/21 13:26 Metoprolol Tartrate (Metoprolol Tartrate 1 Mg/Ml Vial) 5 mg IV Q6 PRN; Protocol PRN Reason: Tachycardia Stop: 07/13/21 17:59 Last Admin: 06/14/21 09:33 Dose: 5 mg Documented by: Metoprolol Tartrate (Metoprolol Tartrate 50 Mg Tab) 150 mg PO BID NUPUR Stop: 07/14/21 20:59 Miscellaneous (Carbohydrates For Hypoglycemia ) 15 - 30 gm PO UD PRN PRN Reason: Hypoglycemia Protocol Stop: 07/13/21 14:18 Miscellaneous Information (Piperacill/Tazobac Consult Active) 1 ea N/A UD PRN PRN Reason: Consult Stop: 07/13/21 15:24 Morphine Sulfate (Morphine Sulfate 2 Mg/Ml Carp) 2 mg IV Q3H PRN PRN Reason: Severe Pain Stop: 06/27/21 14:39 Last Admin: 06/13/21 17:44 Dose: 2 mg Documented by: Ondansetron HCl (Ondansetron Inj 2 Mg/Ml 2 Ml Vial) 4 mg IV Q6H PRN PRN Reason: Nausea Stop: 07/13/21 13:26 Oxycodone HCl (Oxycodone Hcl Ir 5 Mg Tab (Immediate Release)) 5 mg PO Q6H PRN PRN Reason: Moderate Pain Stop: 06/27/21 14:39 Polyethylene Glycol (Polyethylene (Miralax) 17 Gm Pack) 17 gm PO DAILY PRN PRN Reason: Constipation Stop: 07/13/21 13:26 Rosuvastatin Calcium (Rosuvastatin Calcium 10 Mg Tab) 10 mg PO DAILY NUPUR Stop: 07/14/21 08:59 Last Admin: 06/14/21 09:03 Dose: 10 mg Documented by:
[2021-06-14] MEDS ORDERED: METOPROLOL TARTRATE 50 MG TAB PO ONE (11:37)
[2021-06-14] MEDS: SODIUM CHLORIDE 0.9% 1000ML 1,000 ML IV SCH ×2 (12:07→21:58)
[2021-06-14 15:38] LABS: INR 1.8 (0.9-1.1); Prothrombin Time 18.5 Seconds (9.0-12.0)
--- NOTE | 2021-06-14 17:20 | Hospitalist Progress Note ---
Date of Service June 14, 2021 Assessment & Plan (1) Septic joint of right knee joint: Plan: per admitting team with addendum: Patient is 75-year-old female with history of chronic atrial fibrillation on Coumadin, SSS s/p pacemaker, CAD s/p PCI to RCA in 1998, DM II, HTN, dyslipidemia, CKD III, h/o Right TKA presented to [facility] as transfer from [facility] ER for right knee pain and edema and concern for right knee infection, fever. History RLE cellulitis treated 2 weeks ago with improvement. [facility] records: T: 38.1C, BP stable, Pulse 113-140. WBC of 13, Hgb 12.9, lactate and procalcitonin were WNL. CRP elevated at 15. Right knee x-ray obtained today at [facility]: No acute fracture, no acute hardware abnormality. At [facility] ER today ortho had aspirated right knee. Synovial fluid from today's aspiration: synovial fluid: Fluid clarity: Turbid, neutrophil %: 80% (0-25%), total nucleated cell count: 163,160 (0-180 cells/uL), RBC: 80,000 (<2000 cells/uL). Blood cultures were drawn today at [facility]. Follow these cultures. Patient given Zosyn, vancomycin, 1L NSS at [facility] prior to transfer Continue Zosyn, vancomycin IVF Requested to have xray images from [facility] to [facility] Ortho consult NPO midnight CBC, BMP in am 06/14 ff up synovial fluid and blood cultures continue Dapto + Zosyn, IV fluids Ortho planning for OR tomorrow afternoon Vit K given, INR 1.8 INR daily (2) Chronic atrial fibrillation: Plan: Chronic atrial fibrillation on chronic Coumadin Atrial fibrillation RVR Patient had A. fib RVR at [facility] ER. Troponin T: WNL. Patient currently asymptomatic. Likely secondary to underlying infection and missed beta janusz medication Resume home metoprolol tartrate IV Lopressor prn INR: 2.9 Will need to optimize prior to surgical procedure Hold Coumadin secondary to surgical procedure. Monitor INR. 06/14 [employer] Pay[employer]ist consulted for RVR Metoprolol increased to 150mg BID (3) Diabetes mellitus, type II: Plan: A1c: 8.0 on 05/28/2021 Insulin-dependent Basal bolus insulin per protocol (4) CAD (coronary artery disease): Plan: Status post PCI to RCA 1998 Denies chest pain, shortness of breath Continue rosuvastatin, metoprolol tartrate (5) CKD (chronic kidney disease), stage III: Plan: Acute Renal Failure on CKD 3 Cr: 1.0. Baseline 1.0 crea 1.6 likely from sepsis, dehydration IV fluids monitor closely Monitor renal functions, avoid nephrotoxic agents when possible (6) HTN (hypertension): Plan: Continue metoprolol tartrate (7) Sick sinus syndrome: Plan: S/p pacemaker (8) Dyslipidemia: Plan: Continue rosuvastatin DVT Prophylaxis INR 1.8 resume coumadin when ok with Ortho Full code as per discussion with pt Follows with Vitaliy Mcmillan for routine care Admission and Anticipated Discharge Date Admission Date: June 13, 2021 Subjective ff up for sepsis, septic arthritis, a fib in rvr, etc seen resting in bed, not in distress reports pain on the r knee- moderate to severe no chest pain, dyspnea, palpitations, dizziness no abdominal pain, nausea, problems with urination or BM hungry no other symptoms Review of Systems Review of Systems: all noted and negative except for above Physical Exam Physical Exam: General- oriented x 3, not in distress, speaks in sentences with no effort or accessory muscle use Head- atraumatic Eyes- PERRL, EOMI, anicteric ENT- oropharynx clear Neck- supple, no JVD, no adenopathy, no thyromegaly; carotids +2/2, no bruits appreciated Lungs- clear to auscultation bilaterally, no rales/wheezes Heart- normal rate, irregularly irregular rhythm; no murmur, no gallop, no rub appreciated Abdomen- normal bowel sounds, nondistended, soft, nontender, no masses or hepatosplenomegaly Extremities- no pretibial edema, no calf tenderness; peripheral pulses intact R knee: moderate edema, mild warmth and tenderness Neuro- alert, oriented x 3; CN 2-12 grossly intact; motor 5/5 bilaterally;sensation 100% on all extremities; no other gross focal neurologic deficits Skin- warm & dry Results & Data Results & Data ([facility] [place]) Vital Signs (Past 12 Hours) Vital Signs Temp Pulse Pulse Resp BP BP Pulse Ox 06/14/21 16:38 36.8 C 104 H 19 120/58 L 95 06/14/21 11:55 36.7 C 102 H 20 115/73 95 06/14/21 09:33 142 H 148/79 H 06/14/21 08:08 37.8 C H 137 H 20 137/78 93 all noted and reviewed including below
[2021-06-14] MEDS: GABAPENTIN 100 MG CAP PO SCH (20:14)
[2021-06-14] MEDS: METOPROLOL TARTRATE 50 MG TAB PO SCH (20:15)
[2021-06-14] MEDS: MoRPHine SULFATE 2 MG/ML CARP IV PRN (21:53)
[2021-06-15] MEDS: METOPROLOL TARTRATE 1 MG/ML VIAL IV PRN (04:05)
[2021-06-15 07:44] LABS: INR 1.2 (0.9-1.1); Prothrombin Time 12.8 Seconds (9.0-12.0)
[2021-06-15 07:46] LABS: Hematocrit (blood only) 30.1 % (37-47); Hemoglobin 10.2 g/dL (12.0-16.0); Mean Corpuscular Hemoglobin 30.6 pg (25-34); Mean Corpuscular Hgb Conc 33.9 g/dL (32-36); Mean Corpuscular Volume 90.4 fL (80-100); RDW Coefficient of Variation 14.1 % (11.5-14.5); Red Blood Count 3.33 M/uL (4.2-5.4); White Blood Count 14.52 K/uL (4.8-10.8)
[2021-06-15 07:55] LABS: Mean Platelet Volume 11.2 fL (7.4-10.4); Platelet Count 72 K/uL (130-400)
[2021-06-15 08:21] LABS: Basophils # (auto) 0.01 K/uL (0-0.2); Basophils % (auto) 0.1 %; Eosinophils # (auto) 0.03 K/uL (0-0.5); Eosinophils % (auto) 0.2 %; Immature Granulocytes # (auto) 0.04 K/uL (0.00-0.02); Immature Granulocytes % (auto) 0.3 %; Lymphocytes % (auto) 14.5 %; Monocytes # (auto) 2.32 K/uL (0.11-0.59); Neutrophils # (auto) 10.02 K/uL (1.4-6.5); Neutrophils % (auto) 68.9 %
[2021-06-15 08:28] LABS: Calcium 8.2 mg/dl (8.5-10.1); Creatinine Clr Calc Pharmacy 38.8 ml/min; Est GFR (African American) 41.4 ml/min; Est GFR (Non-African American) 35.7 ml/min; Potassium 4.2 mmol/L (3.5-5.1)
[2021-06-15] MEDS: ALPRAZolam 0.25 MG TABLET PO PRN (08:52)
[2021-06-15] MEDS: INSULIN ASPART PER UNIT SC SCH ×4 (08:53→20:32)
[2021-06-15] MEDS: SODIUM CHLORIDE 0.9% 1000ML 1,000 ML IV SCH ×2 (08:53→19:37)
[2021-06-15] MEDS: METOPROLOL TARTRATE 50 MG TAB PO SCH ×2 (08:53→20:22)
[2021-06-15] MEDS: INSULIN GLARGINE SOLOSTAR 100 UNITS/ML 3 ML PEN SC SCH ×2 (08:54→20:32)
[2021-06-15] MEDS: PIPERACILLIN/TAZOBACTAM 4.5 GM in DEXTROSE 5% 100 ML IV SCH ×2 (08:56→23:07)
[2021-06-15] MEDS: ROSUVASTATIN CALCIUM 10 MG TAB PO SCH (09:30)
[2021-06-15] MEDS ORDERED: dilTIAZem HCl 5 MG/ML 5 ML VIAL IV STA (09:50)
[2021-06-15] MEDS ORDERED: STAT IV Infusion **Titration per Protocol STA (09:50)
[2021-06-15] MEDS ORDERED: DAPTOmycin 425 MG in SYRINGE 0 ML IV SCH (10:00)
[2021-06-15] MEDS: dilTIAZem HCL 125 MG in DEXTROSE 5% 100 ML IV SCH ×2 (10:57→19:36)
--- NOTE | 2021-06-15 11:55 | Cardiology Progress Note ---
Date of Service June 15, 2021 Assessment & Plan (1) Septic joint of right knee joint: (2) Preop cardiovascular exam: (3) HTN (hypertension): (4) Atrial fibrillation with RVR: (5) Pacemaker: Plan: Heart rate remains elevated despite titration of metoprolol. Recommend addition of low-dose intravenous Cardizem infusion to allow patient to proceed to the operating room for treatment of her septic arthritis. 10 mg of IV Cardizem ordered followed by a 5 mg/h infusion. Wean Cardizem infusion as tolerated postoperatively. Restart warfarin when bleeding risk is deemed acceptable by the operating surgeon. Admission and Anticipated Discharge Date Admission Date: June 13, 2021 Subjective Patient seen examined the bedside. Complains of right knee discomfort. Denies palpitations or chest pain. Telemetry was atrial fibrillation with heart rate ranging from 120-140 bpm. Review of Systems Review of Systems: All systems reviewed & are unremarkable except as noted in Subjective Physical Exam Constitutional: well nourished and + obese; no acute distress Respiratory: no respiratory distress, no labored breathing and no retractions Auscultation: + diminished lung sounds; breath sounds present, no crackles, no rales, no rhonchi and no wheezes Cardiovascular: Rate/Rhythm: + tachycardic and + irregularly irregular Heart Sounds: normal S1 and normal S2; no murmur Vessels: no JVD and no carotid bruit Musculoskeletal: Knee: knee normal to inspection (Right knee edema) Neurologic: CN's II-XI intact bilaterally and moves all extremities; no focal motor deficits Results & Data ([facility]) Vital Signs (Past 12 Hours) Vital Signs Temp Pulse Pulse Resp BP BP Pulse Ox 06/15/21 11:33 37.3 C 95 H 19 100/64 94 06/15/21 07:06 37.2 C 82 18 115/81 96 06/15/21 04:17 111/57 L 06/15/21 04:05 134 H 116/81 06/15/21 04:03 37.5 C 134 H 18 116/81 96
[2021-06-15] MEDS ORDERED: ONDANSETRON INJ 2 MG/ML 2 ML VIAL ONE (14:26)
[2021-06-15] MEDS ORDERED: ceFAZolin 330 MG/ML 1 GM VIAL ONE (14:26)
[2021-06-15] MEDS ORDERED: fentaNYL citrate 100 MCG/2 ML VIAL ONE ×3 (14:26→17:54)
[2021-06-15] MEDS ORDERED: DEXAMETHASONE SOD INJ 4 MG/ML VIAL ONE (14:26)
[2021-06-15] MEDS ORDERED: PROPOFOL IV EMULSION 10 MG/ML 20 ML VIAL IV ONE (14:26)
[2021-06-15] MEDS ORDERED: TOBRAMYCIN SULF 40 MG/ML 2 ML VIAL ONE (15:42)
[2021-06-15] MEDS ORDERED: ATROPINE SULFATE 0.1 MG/ML 10ML SYR IV PRN (15:43)
[2021-06-15] MEDS ORDERED: fentaNYL citrate 100 MCG/2 ML VIAL IV PRN (15:43)
[2021-06-15] MEDS ORDERED: ONDANSETRON INJ 2 MG/ML 2 ML VIAL IV PRN (15:43)
[2021-06-15] MEDS ORDERED: LABETALOL HCL IV 5 MG/ML 20ML IV PRN (15:43)
[2021-06-15] MEDS ORDERED: NALOXONE HCL 0.4 MG/1 ML VIAL/CARP IV PRN (15:43)
[2021-06-15] MEDS ORDERED: PROMETHAZINE HCL 12.5 MG in SODIUM CHLORIDE 0.9% 50 ML IV PRN (15:43)
[2021-06-15] MEDS ORDERED: ePHEDrine sulfate 50 MG/ML AMP IV PRN (15:43)
[2021-06-15] MEDS ORDERED: HYDROmorphone INJ 1 MG/ML SYRINGE IV PRN (15:43)
--- NOTE | 2021-06-15 15:57 | History & Physical Bridge Note ---
Date of Service June 15, 2021 History & Physical Bridge Note I have examined the patient, reviewed the History & Physical and in the interval since the performance of the History & Physical I have noted the following changes of clinical significance: no changes noted
[2021-06-15] MEDS ORDERED: MIDAZOLAM HCL 1 MG/ML 2ML VIAL ONE (16:03)
--- NOTE | 2021-06-15 18:23 | Post Operative Brief Note ---
Immediate Post Op Note v1 Date of Surgery June 15, 2021 Pre & Post Diagnosis Operation Date: 06/14/21 07:55 <No data on this case meets the specified criteria> Operation Date: 06/15/21 11:10 Pre-Op Diagnosis: Acute septic Right total knee replacement, obesity BMI 37.4 Post-Op Diagnosis: Acute septic right total knee replacement, obesity BMI 37.4 I identified the patient and participated in the time-out.: Yes Procedure Operation Date: 06/14/21 07:55 <No data on this case meets the specified criteria> Operation Date: 06/15/21 11:10 Actual Procedures p Right Knee Open Synovectomy, Irrigation and Debridement, excision heterotopic bone, polyethylene Exchange and Placement Antibiotic Beads and superficial wound VAC application- Josiah Tran MD Surgeon Josiah Tran MD Buffing Wheel Operator Gordo MARROQUIN Estimated Blood Loss 15 Findings See Below Cloudy fluid in the joint consistent with septic knee replacement, no loosening of any implant, heterotopic bone lateral retinaculum, hemorrhagic synovitis chronic, intraoperative findings consistent with acute infection. Specimens Culture swabs x2 Synovial tissue Drains Roque Catheter (patient came to OR with roque in place, output monitored by anesthesia throughout procedure) and Hemovac Drain Anesthesia Type General Regional Complications none Disposition Disposition: Recovery Room Overlapping Procedure I was immediately available: during the entire case.
--- NOTE | 2021-06-15 19:15 | Anesthesiology Progress Note ---
Date of Service June 15, 2021 Anesthesia Post Procedure Vital Signs Vital Signs: Temp Pulse Pulse Pulse Resp BP BP 06/15/21 18:55 36.7 C 101 H 20 115/65 06/15/21 18:45 97 H 20 115/65 06/15/21 18:35 93 H 19 105/85 06/15/21 18:29 37.1 C 114 H 19 103/88 06/15/21 14:44 37 C 92 H 18 123/74 06/15/21 11:33 37.3 C 95 H 19 100/64 06/15/21 07:06 37.2 C 82 18 115/81 06/15/21 04:17 111/57 L 06/15/21 04:05 134 H 116/81 06/15/21 04:03 37.5 C 134 H 18 116/81 06/14/21 23:53 37.4 C 103 H 18 116/77 06/14/21 19:21 37.8 C H 145 H 21 139/79 Pulse Ox 06/15/21 18:55 93 06/15/21 18:45 92 06/15/21 18:35 94 06/15/21 18:29 94 06/15/21 14:44 95 06/15/21 11:33 94 06/15/21 07:06 96 06/15/21 04:17 06/15/21 04:05 06/15/21 04:03 96 06/14/21 23:53 97 06/14/21 19:21 95 Pain Intensity Right Knee: Pain Intensity: 2 Transfer of Care Handoff Completed per policy Notes Mental Status: alert / awake / arousable Patient Amnestic to Procedure: Yes Nausea / Vomiting: adequately controlled Pain: adequately controlled Airway Patency, RR, SpO2: stable & adequate BP & HR: stable & adequate Hydration State: stable & adequate Anesthetic Complications: no major complications apparent
[2021-06-15] MEDS ORDERED: bisacodyL 10 MG SUPP PR PRN (19:24)
[2021-06-15] MEDS ORDERED: MAGNESIUM HYDROXIDE SUSP 30 ML UDC PO PRN (19:24)
[2021-06-15] MEDS ORDERED: METOCLOPRAMIDE HCL INJ 5 MG/ML 2 ML VIAL IV PRN (19:24)
[2021-06-15] MEDS: ONDANSETRON INJ 2 MG/ML 2 ML VIAL IV PRN (19:51)
--- NOTE | 2021-06-15 19:56 | XRay Report ---
XR knee RT 1 or 2V routine CLINICAL HISTORY: Surgical Post Op COMPARISON: Right knee radiographs June 13, 2021. FINDINGS: Alignment of the right knee arthroplasty is anatomic. No periprosthetic fracture or lucenc y is present. There are no unexpected radiopaque foreign bodies. There are surgical drains and skin s taples. Interval placement of antibiotic-impregnated beads within the joint space is noted. IMPRESSION: Interval placement of antibiotic impregnated beads within the right knee joint. Expected postoperative findings. ACT 112: Negative or not required by law. Electronically signed by: Aaron Rendon M.D. 06/15/2021 7:54 PM
[2021-06-15] MEDS: GABAPENTIN 100 MG CAP PO SCH (20:19)
[2021-06-15] MEDS: SENNA 8.6 MG TAB PO SCH (20:21)
[2021-06-15] MEDS: DOCUSATE SODIUM 100 MG CAP PO SCH (20:21)
--- NOTE | 2021-06-15 20:32 | Hospitalist Progress Note ---
Date of Service June 15, 2021 Assessment & Plan (1) Septic joint of right knee joint: Plan: per admitting team with addendum: Patient is 75-year-old female with history of chronic atrial fibrillation on Coumadin, SSS s/p pacemaker, CAD s/p PCI to RCA in 1998, DM II, HTN, dyslipidemia, CKD III, h/o Right TKA presented to [facility] as transfer from [facility] ER for right knee pain and edema and concern for right knee infection, fever. History RLE cellulitis treated 2 weeks ago with improvement. [facility] records: T: 38.1C, BP stable, Pulse 113-140. WBC of 13, Hgb 12.9, lactate and procalcitonin were WNL. CRP elevated at 15. Right knee x-ray obtained today at [facility]: No acute fracture, no acute hardware abnormality. At [facility] ER today ortho had aspirated right knee. Synovial fluid from today's aspiration: synovial fluid: Fluid clarity: Turbid, neutrophil %: 80% (0-25%), total nucleated cell count: 163,160 (0-180 cells/uL), RBC: 80,000 (<2000 cells/uL). Blood cultures were drawn today at [facility]. Follow these cultures. Patient given Zosyn, vancomycin, 1L NSS at [facility] prior to transfer Continue Zosyn, vancomycin IVF Requested to have xray images from [facility] to [facility] Ortho consult NPO midnight CBC, BMP in am 4/1 for I&D ff up synovial fluid and blood cultures continue Dapto + Zosyn, IV fluids Vit K given, INR 1.2 INR daily (2) Chronic atrial fibrillation: Plan: Chronic atrial fibrillation on chronic Coumadin Atrial fibrillation RVR Patient had A. fib RVR at [facility] ER. Troponin T: WNL. Patient currently asymptomatic. Likely secondary to underlying infection and missed beta janusz medication Resume home metoprolol tartrate IV Lopressor prn INR: 2.9 Will need to optimize prior to surgical procedure Hold Coumadin secondary to surgical procedure. Monitor INR. / General Office Associate consulted for RVR Metoprolol increased to 150mg BID (3) Diabetes mellitus, type II: Plan: A1c: 8.0 on 05/28/2021 Insulin-dependent Basal bolus insulin per protocol (4) CAD (coronary artery disease): Plan: Status post PCI to RCA 1998 Denies chest pain, shortness of breath Continue rosuvastatin, metoprolol tartrate (5) CKD (chronic kidney disease), stage III: Plan: Acute Renal Failure on CKD 3 Cr: 1.0. Baseline 1.0 crea 1.4 likely from sepsis, dehydration IV fluids monitor closely Monitor renal functions, avoid nephrotoxic agents when possible (6) HTN (hypertension): Plan: Continue metoprolol tartrate (7) Sick sinus syndrome: Plan: S/p pacemaker (8) Dyslipidemia: Plan: Continue rosuvastatin DVT Prophylaxis INR 1.2 resume coumadin when ok with Ortho Full code as per discussion with pt Follows with Vitaliy Mcmillan for routine care Admission and Anticipated Discharge Date Admission Date: June 13, 2021 Subjective delayed entry date of service noted above ff up for septic arthritis, etc seen resting in bed, not in distress has R knee pain adequately controlled no chest pain, dyspnea, palpitations, dizziness no other symptoms Review of Systems Review of Systems: all noted and negative except for above Physical Exam Constitutional: General- oriented x 3, not in distress, speaks in sentences with no effort or accessory muscle use Eyes- anicteric Neck- no JVD Lungs- clear breath sounds bilaterally, no rales/wheezes Heart- normal rate,irregularly irregular rhythm; no murmurs Abdomen- normal bowel sounds, nondistended, soft, nontender Extremities- RLE: (+) moderate erythema, tenderness R knee LLE: no pretibial edema, no calf tenderness Neuro- alert, oriented x 3; no gross focal neurologic deficits Skin- warm & dry Results & Data Results & Data ([facility]) Vital Signs (Past 12 Hours) Vital Signs Temp Pulse Pulse Pulse Resp BP Pulse Ox 06/15/21 19:54 36.6 C 108 H 15 118/80 96 06/15/21 19:24 36.7 C 87 18 114/70 94 06/15/21 18:55 36.7 C 101 H 20 115/65 93 06/15/21 18:45 97 H 20 115/65 92 06/15/21 18:35 93 H 19 105/85 94 06/15/21 18:29 37.1 C 114 H 19 103/88 94 06/15/21 14:44 37 C 92 H 18 123/74 95 06/15/21 11:33 37.3 C 95 H 19 100/64 94 all noted and reviewed including below
[2021-06-15] MEDS: MoRPHine SULFATE 2 MG/ML CARP IV PRN (22:04)
[2021-06-16] MEDS: SODIUM CHLORIDE 0.9% 1000ML 1,000 ML IV SCH (04:53)
[2021-06-16 06:10] LABS: Hematocrit (blood only) 29.3 % (37-47); Hemoglobin 9.9 g/dL (12.0-16.0); Mean Corpuscular Hemoglobin 30.5 pg (25-34); Mean Corpuscular Hgb Conc 33.8 g/dL (32-36); Mean Corpuscular Volume 90.2 fL (80-100); RDW Coefficient of Variation 14.2 % (11.5-14.5); Red Blood Count 3.25 M/uL (4.2-5.4); White Blood Count 18.21 K/uL (4.8-10.8)
[2021-06-16 06:29] LABS: INR 1.2 (0.9-1.1); Prothrombin Time 12.2 Seconds (9.0-12.0)
--- NOTE | 2021-06-16 06:31 | Orthopedic Progress Note ---
Date of Service June 16, 2021 Assessment & Plan (1) Septic joint of right knee joint: Plan: POD #1 s/p Right Knee Open Synovectomy, Irrigation and Debridement, Polyethylene Exchange and Placement Antibiotic Beads currently on Zosyn and Dapto LUPE wound vac x 7 days RICE PT- WBAT, ROM as tolerated can resume Coumadin today Admission and Anticipated Discharge Date Admission Date: June 13, 2021 Subjective POD #1 s/p Right Knee Open Synovectomy, Irrigation and Debridement, Polyethylene Exchange and Placement Antibiotic Beads Review of Systems Constitutional: no fever and no chills Respiratory: no cough and no dyspnea Cardiovascular: no chest pain, no dyspnea and no orthopnea Gastrointestinal: no abdominal pain, no nausea and no vomiting Physical Exam Physical Exam: Vital Signs Temp Pulse Pulse Pulse Pulse Resp BP 06/16/21 03:00 37 C 94 H 16 115/74 06/15/21 23:11 36.7 C 88 18 122/74 06/15/21 22:18 87 06/15/21 21:54 36.7 C 90 16 135/78 06/15/21 20:54 36.3 C L 108 H 16 132/82 06/15/21 19:54 36.6 C 108 H 15 118/80 06/15/21 19:24 36.7 C 87 18 114/70 06/15/21 18:55 36.7 C 101 H 20 115/65 06/15/21 18:45 97 H 20 115/65 06/15/21 18:35 93 H 19 105/85 06/15/21 18:29 37.1 C 114 H 19 103/88 06/15/21 14:44 37 C 92 H 18 123/74 06/15/21 11:33 37.3 C 95 H 19 100/64 06/15/21 07:06 37.2 C 82 18 115/81 Pulse Ox 06/16/21 03:00 98 06/15/21 23:11 96 06/15/21 22:18 06/15/21 21:54 98 06/15/21 20:54 96 06/15/21 19:54 96 06/15/21 19:24 94 06/15/21 18:55 93 06/15/21 18:45 92 06/15/21 18:35 94 06/15/21 18:29 94 06/15/21 14:44 95 06/15/21 11:33 94 06/15/21 07:06 96 Intake and Output 06/15/21 06/15/21 06/16/21 14:59 22:59 06:59 Intake Total 1120 / 3559.917 1393.25 / 3559.917 1046.667 / 3559.91 7 Output Total 400 / 865 365 / 865 100 / 865 Balance 720 / 2694.917 1028.25 / 2694.917 946.667 / 2694.917 Intake: IV 1120 / 3209.917 1043.25 / 3209.917 1046.667 / 3209.91 7 Piperacillin/T azobactam 4.5 gm 120 / 240 120 / 240 In Dextrose 5% 100 ml @ 30 mls/ hr IV Q8H NUPUR Rx#:[id number] Sodium Chlorid e 0.9% 1000ML 1, 1000 / 2926.667 1000 / 2926.667 926.667 / 2926.667 000 ml @ 100 m ls/hr IV .Q10H NUPUR Rx#:[id number] dilTIAZem HCL 125 mg In 43.25 / 43.25 Dextrose 5% 10 0 ml @ 10 MG/HR 10 mls/hr IV . [id number] NUPUR Rx#: [id number] IV Perioperative 150 / 150 Oral 200 / 200 Output: Estimated Blood Loss 15 / 15 Urine Amount (Ca theter) 400 / 750 350 / 750 [place]/Indwelli ng 400 / 750 350 / 750 Drain Output 100 / 100 Right Knee 100 / 100 Other: Other Intake Sunni rce Patient NPO this s hift. Weight 98.8 kg Patient Weight 06/16/21 06:59 Weight 98.8 kg Musculoskeletal: Right Leg: dressing is clean and dry, no drainage noted. able to wiggle toes, plantar/dorsiflex ankle without difficult. calf SNT Vital Signs Temp 37 C 06/16/21 03:00 Pulse 94 H 06/16/21 03:00 Resp 16 06/16/21 03:00 BP 115/74 06/16/21 03:00 Pulse Ox 98 06/16/21 03:00 Intake & Output 04/01/22 04/01/22 04/02/22 06:59 18:59 06:59 Intake Total 1325 / 2495.5 2120 / 3559.917 1439.917 / 3559.91 7 Output Total 750 / 750 400 / 865 465 / 865 Balance 575 / 1745.5 1720 / 2694.917 974.917 / 2694.917 Weight 98.8 kg 98.8 kg Intake: IV 1225 / 2395.5 2120 / 3209.917 1089.917 / 3209.91 7 Piperacillin/T azobactam 4.5 gm 240 / 360 120 / 240 120 / 240 In Dextrose 5% 100 ml @ 30 mls/ hr IV Q8H NUPUR Rx#:[id number] Sodium Chlorid e 0.9% 1000ML 1, 985 / 985 2000 / 2926.667 926.667 / 2926.667 000 ml @ 100 m ls/hr IV .Q10H NUPUR Rx#:[id number] dilTIAZem HCL 125 mg In 43.25 / 43.25 Dextrose 5% 10 0 ml @ 10 MG/HR 10 mls/hr IV . [id number] NUPUR Rx#: [id number] IV Perioperative 150 / 150 Oral 100 / 100 200 / 200 Output: Estimated Blood Loss 15 / 15 Urine Amount (Ca theter) 750 / 750 400 / 750 350 / 750 [place]/Indwelli ng 750 / 750 400 / 750 350 / 750 Drain Output 100 / 100 Right Knee 100 / 100 Other: Other Intake Sunni rce Patient NPO this s hift. Weight Measureme nt Method Built in [facility] Results & Data ([facility]) Vital Signs (Past 12 Hours) Vital Signs Temp Pulse Pulse Pulse Resp BP Pulse Ox 06/16/21 03:00 37 C 94 H 16 115/74 98 06/15/21 23:11 36.7 C 88 18 122/74 96 06/15/21 22:18 87 06/15/21 21:54 36.7 C 90 16 135/78 98 06/15/21 20:54 36.3 C L 108 H 16 132/82 96 06/15/21 19:54 36.6 C 108 H 15 118/80 96 06/15/21 19:24 36.7 C 87 18 114/70 94 06/15/21 18:55 36.7 C 101 H 20 115/65 93 06/15/21 18:45 97 H 20 115/65 92 06/15/21 18:35 93 H 19 105/85 94
[2021-06-16 06:38] LABS: BUN Creatinine Ratio 22.3 (10-20); Creatinine Clr Calc Pharmacy 42.7 ml/min; Est GFR (African American) 46.5 ml/min; Est GFR (Non-African American) 40.1 ml/min; Potassium 4.4 mmol/L (3.5-5.1)
[2021-06-16 06:41] LABS: Mean Platelet Volume 11.2 fL (7.4-10.4); Platelet Count 67 K/uL (130-400)
[2021-06-16 06:45] LABS: Basophils # (auto) 0.02 K/uL (0-0.2); Basophils % (auto) 0.1 %; Echinocytes 1+; Eosinophils # (auto) 0.01 K/uL (0-0.5); Eosinophils % (auto) 0.1 %; Immature Granulocytes # (auto) 0.09 K/uL (0.00-0.02); Immature Granulocytes % (auto) 0.5 %; Lymphocytes # (auto) 1.97 K/uL (1.2-3.4); Lymphocytes % (auto) 10.8 %; Monocytes # (auto) 2.32 K/uL (0.11-0.59); Monocytes % (auto) 12.7 %; Neutrophils % (auto) 75.8 %
[2021-06-16] MEDS ORDERED: XOPENEX/ATROVENT 1.25mg/0.5MG NEB COMBO NEB STA (07:44)
[2021-06-16] MEDS ORDERED: FUROSEMIDE 40 MG/4 ML VIAL IV STA (07:56)
[2021-06-16] MEDS ORDERED: LEVALBUTEROL 1.25MG/0.5ML NEB INH STA (07:56)
[2021-06-16] MEDS ORDERED: IPRATROPIUM BROMIDE NEB SOLN 0.02% 2.5 ML VIAL INH STA (07:56)
--- NOTE | 2021-06-16 08:27 | XRay Report ---
XR chest 1V portable HISTORY: 75 years-old Female SHORTNESS OF BREATH acute shortness of breath COMPARISON: None TECHNIQUE: Portable AP view of the chest FINDINGS: Cardiac silhouette is enlarged. Left subclavian pacer. No pneumothorax, large pleural effusion or lob ar airspace consolidation. Mild right lung base densities. Bones appear grossly intact with degenerat jonathan changes of the shoulders and spine. Surgical anchor of the right humeral head. IMPRESSION: 1. Cardiomegaly without overt pulmonary edema. 2. Mild right lung basilar densities suggest atelectasis versus pneumonitis. ACT 112: Negative or not required by law. The above report was generated using voice recognition software. It may contain grammatical, syntax o r spelling errors. Electronically signed by: Aric Chopra M.D. 06/16/2021 8:25 AM
[2021-06-16] MEDS: MULTIVITAMIN TAB PO SCH (09:02)
[2021-06-16] MEDS: DOCUSATE SODIUM 100 MG CAP PO SCH ×2 (09:02→20:06)
[2021-06-16] MEDS: METOPROLOL TARTRATE 50 MG TAB PO SCH ×2 (09:03→20:06)
[2021-06-16] MEDS: ROSUVASTATIN CALCIUM 10 MG TAB PO SCH (09:03)
[2021-06-16] MEDS: INSULIN GLARGINE SOLOSTAR 100 UNITS/ML 3 ML PEN SC SCH ×2 (09:04→20:18)
[2021-06-16] MEDS: INSULIN ASPART PER UNIT SC SCH ×4 (09:05→20:18)
[2021-06-16] MEDS: PIPERACILLIN/TAZOBACTAM 4.5 GM in DEXTROSE 5% 100 ML IV SCH ×3 (09:21→22:08)
[2021-06-16] MEDS: dilTIAZem HCL 125 MG in DEXTROSE 5% 100 ML IV SCH (10:07)
[2021-06-16] MEDS: ACETAMINOPHEN 325 MG TAB PO PRN (10:13)
[2021-06-16] MEDS: MoRPHine SULFATE 2 MG/ML CARP IV PRN ×2 (10:58→17:51)
[2021-06-16] MEDS ORDERED: LEVALBUTEROL 1.25MG/0.5ML NEB ONE (11:31)
--- NOTE | 2021-06-16 12:00 | Cardiology Progress Note ---
Date of Service June 16, 2021 Assessment & Plan (1) Septic joint of right knee joint: (2) Preop cardiovascular exam: (3) HTN (hypertension): (4) Atrial fibrillation with RVR: (5) Pacemaker: Plan: The patient usually takes 100 mg of metoprolol tartrate twice daily. She is currently on 150 mg metoprolol tartrate twice daily along with a diltiazem drip. I am going to switch her over to oral diltiazem and stop the infusion. Otherwise she is clinically stable. Admission and Anticipated Discharge Date Admission Date: June 13, 2021 Subjective The patient is alert and able to take oral medications. Review of Systems Review of Systems: Review of Systems: See HPI for pertinent positives. All other 10 point review of systems are negative. Physical Exam Physical Exam: General: no acute distress and stated age Head: normocephalic, no masses, lesions, tenderness or abnormalities Eyes: conjunctiva are pink and non-injected, sclera clear Neck: supple, no adenopathy, no bruits, normal jugular venous pulse, no hepatojugular reflux Chest: normal shape and normal respiratory effort Lungs: clear to auscultation and percussion Cardiac Exam: - regular rate & rhythm, no murmurs gallops or rubs - normal S1, normal S2 Pulses: 2(+) throughout Abdomen: abdomen soft, non-tender, no abnormal masses and no hepatosplenomegaly Musculoskeletal: no gait disturbance, no joint inflammation, no deforming arthritis Extremities: no edema and no cyanosis Neuro: grossly normal exam Results & Data ([facility]) Vital Signs (Past 12 Hours) Vital Signs Temp Pulse Pulse Pulse Resp BP Pulse Ox 06/16/21 11:52 36.7 C 112 H 19 110/66 95 06/16/21 11:47 96 H 18 98 06/16/21 11:17 94 H 06/16/21 07:45 37.4 C 94 H 16 116/66 96 06/16/21 03:00 37 C 94 H 16 115/74 98 Laboratory Results Laboratory Results - last 24 hr 06/15/21 06/15/21 06/16/21 18:41 20:28 05:24 WBC 18.21 H RBC 3.25 L Hgb 9.9 L Hct 29.3 L MCV 90.2 MCH 30.5 MCHC 33.8 RDW Std Deviation 47.0 H RDW Coeff of Kavon 14.2 Plt Count 67 L MPV 11.2 H Immature Gran % (Auto) 0.5 Neut % (Auto) 75.8 Lymph % (Auto) 10.8 [place] % (Auto) 12.7 Eos % (Auto) 0.1 Baso % (Auto) 0.1 Neut # (Auto) 13.80 H Lymph # (Auto) 1.97 [place] # (Auto) 2.32 H Eos # (Auto) 0.01 Baso # (Auto) 0.02 Immature Gran # (Auto) 0.09 H Echinocytes 1+ PT INR Sodium Potassium Chloride Carbon Dioxide Anion Gap BUN Creatinine Est Cr Clr Drug Dosing Est GFR ( Amer) Est GFR (Non-Af Amer) BUN/Creatinine Ratio Glucose POC Glucose 163 H 166 H Calcium 06/16/21 06/16/21 06/16/21 05:24 05:24 07:50 WBC RBC Hgb Hct MCV MCH MCHC RDW Std Deviation RDW Coeff of Kavon Plt Count MPV Immature Gran % (Auto) Neut % (Auto) Lymph % (Auto) [place] % (Auto) Eos % (Auto) Baso % (Auto) Neut # (Auto) Lymph # (Auto) [place] # (Auto) Eos # (Auto) Baso # (Auto) Immature Gran # (Auto) Echinocytes PT 12.2 H INR 1.2 H Sodium 135 L Potassium 4.4 Chloride 107 Carbon Dioxide 21 Anion Gap 7 BUN 29 H Creatinine 1.30 H Est Cr Clr Drug Dosing 42.7 Est GFR ( Amer) 46.5 Est GFR (Non-Af Amer) 40.1 BUN/Creatinine Ratio 22.3 H Glucose 192 H POC Glucose 196 H Calcium 8.0 L 06/16/21 11:29 WBC RBC Hgb Hct MCV MCH MCHC RDW Std Deviation RDW Coeff of Kavon Plt Count MPV Immature Gran % (Auto) Neut % (Auto) Lymph % (Auto) [place] % (Auto) Eos % (Auto) Baso % (Auto) Neut # (Auto) Lymph # (Auto) [place] # (Auto) Eos # (Auto) Baso # (Auto) Immature Gran # (Auto) Echinocytes PT INR Sodium Potassium Chloride Carbon Dioxide Anion Gap BUN Creatinine Est Cr Clr Drug Dosing Est GFR ( Amer) Est GFR (Non-Af Amer) BUN/Creatinine Ratio Glucose POC Glucose 290 H Calcium Medications Administered Current Inpatient Medications Acetaminophen (Acetaminophen 325 Mg Tab) 650 mg PO Q4H PRN PRN Reason: Pain or Fever Stop: 07/13/21 13:26 Last Admin: 06/14/21 09:03 Dose: 650 mg Documented by: Alprazolam (Alprazolam 0.25 Mg Tablet) 0.25 mg PO HS PRN PRN Reason: Anxiety Stop: 07/13/21 17:36 Last Admin: 06/15/21 08:52 Dose: 0.25 mg Documented by: Bisacodyl (Bisacodyl 10 Mg Supp) 10 mg ND DAILY PRN PRN Reason: Constipation Stop: 07/15/21 19:23 Dextrose (Dextrose 50% 50 Ml Syringe) 25 - 50 ml IV UD PRN; Protocol PRN Reason: Hypoglycemia Protocol Stop: 07/13/21 14:18 Diltiazem HCl (Diltiazem Hcl 30 Mg Tab) 30 mg PO TID [facility] Stop: 07/16/21 13:59 Docusate Sodium (Docusate Sodium 100 Mg Cap) 100 mg PO BID [facility] Stop: 07/15/21 20:59 Last Admin: 06/16/21 09:02 Dose: 100 mg Documented by: Gabapentin (Gabapentin 100 Mg Cap) 100 mg PO HS [facility] Stop: 07/13/21 20:59 Last Admin: 06/15/21 20:19 Dose: Not Given Documented by: Glucagon (Glucagon For Inj 1 Mg Vial) 1 mg SQ UD PRN; Protocol PRN Reason: Hypoglycemia Protocol Stop: 07/13/21 14:18 Glucose (Glucose 10 Tabs/Tube) 4 - 8 tabs PO UD PRN; Protocol PRN Reason: Hypoglycemia Protocol Stop: 07/13/21 14:18 Glucose (Glucose 40% Gel 15 Gm Tube) 15 - 30 gm PO UD PRN; Protocol PRN Reason: Hypoglycemia Protocol Stop: 07/13/21 14:18 Piperacillin Sod/Tazobactam (Sod 4.5 gm/ Dextrose) 120 mls @ 30 mls/hr IV Q8H [facility]; Protocol Stop: 07/26/21 00:00 Last Admin: 06/16/21 09:21 Dose: 30 mls/hr Documented by: Diltiazem HCl 125 mg/ Dextrose 125 mls @ 10 mls/hr IV .[id number] [facility]; Protocol Stop: 07/15/21 09:59 Last Admin: 06/16/21 10:07 Dose: 10 mg/hr, 10 mls/hr Documented by: Insulin Aspart (Insulin Aspart Per Unit) 0 units SC ACHS [facility] Stop: 07/13/21 16:29 Last Admin: 06/16/21 09:05 Dose: 7 units Documented by: Insulin Glargine (Insulin Glargine Solostar 100 Units/Ml 3 Ml Pen) 0 - 40 units SC BID [facility] Stop: 07/13/21 20:59 Last Admin: 06/16/21 09:04 Dose: 40 units Documented by: Magnesium Hydroxide (Magnesium Hydroxide Susp 30 Ml Udc) 30 ml PO Q12H PRN PRN Reason: Constipation Stop: 07/13/21 13:26 Last Admin: 06/14/21 20:22 Dose: 30 ml Documented by: Magnesium Hydroxide (Magnesium Hydroxide Susp 30 Ml Udc) 30 ml PO Q6H PRN PRN Reason: Constipation Stop: 07/15/21 19:23 Metoclopramide HCl (Metoclopramide Hcl Inj 5 Mg/Ml 2 Ml Vial) 10 mg IV Q6H PRN PRN Reason: Nausea And Vomiting Stop: 07/15/21 19:23 Metoprolol Tartrate (Metoprolol Tartrate 1 Mg/Ml Vial) 5 mg IV Q6 PRN; Protocol PRN Reason: Tachycardia Stop: 07/13/21 17:59 Last Admin: 06/15/21 04:05 Dose: 5 mg Documented by: Metoprolol Tartrate (Metoprolol Tartrate 50 Mg Tab) 150 mg PO BID [facility] Stop: 07/14/21 20:59 Last Admin: 06/16/21 09:03 Dose: 150 mg Documented by: Miscellaneous (Carbohydrates For Hypoglycemia ) 15 - 30 gm PO UD PRN PRN Reason: Hypoglycemia Protocol Stop: 07/13/21 14:18 Miscellaneous Information (Piperacill/Tazobac Consult Active) 1 ea N/A UD PRN PRN Reason: Consult Stop: 07/13/21 15:24 Morphine Sulfate (Morphine Sulfate 2 Mg/Ml Carp) 2 mg IV Q3H PRN PRN Reason: Severe Pain Stop: 06/27/21 14:39 Last Admin: 06/16/21 10:58 Dose: 2 mg Documented by: Multivitamins (Multivitamin Tab) 1 tab PO QAM [facility] Stop: 07/16/21 08:59 Last Admin: 06/16/21 09:02 Dose: 1 tab Documented by: Ondansetron HCl (Ondansetron Inj 2 Mg/Ml 2 Ml Vial) 4 mg IV Q6H PRN PRN Reason: Nausea Stop: 07/13/21 13:26 Last Admin: 06/15/21 19:51 Dose: 4 mg Documented by: Oxycodone HCl (Oxycodone Hcl Ir 5 Mg Tab (Immediate Release)) 5 mg PO Q6H PRN PRN Reason: Moderate Pain Stop: 06/27/21 14:39 Last Admin: 06/15/21 08:52 Dose: 5 mg Documented by: Polyethylene Glycol (Polyethylene (Miralax) 17 Gm Pack) 17 gm PO DAILY PRN PRN Reason: Constipation Stop: 07/13/21 13:26 Rosuvastatin Calcium (Rosuvastatin Calcium 10 Mg Tab) 10 mg PO DAILY [facility] Stop: 07/14/21 08:59 Last Admin: 06/16/21 09:03 Dose: 10 mg Documented by: Sennosides (Senna 8.6 Mg Tab) 17.2 mg PO [facility] Stop: 07/15/21 20:59 Last Admin: 06/15/21 20:21 Dose: 17.2 mg Documented by: Warfarin Sodium (Warfarin Sod 2 Mg Tab) 2 mg PO [id number] [facility] Stop: 07/16/21 15:59 Warfarin Sodium (Warfarin Sod 1 Mg Tab) 1 mg PO [id number] [facility] Stop: 07/18/21 15:59
[2021-06-16] MEDS: dilTIAZem HCL 30 MG TAB PO SCH ×2 (13:02→20:07)
--- NOTE | 2021-06-16 15:09 | Hospitalist Progress Note ---
Date of Service June 16, 2021 Assessment & Plan (1) Septic joint of right knee joint: Plan: Septic arthritis: Bacteremia Per admitting service notes with addendum: Patient is 75-year-old female with history of chronic atrial fibrillation on Coumadin, SSS s/p pacemaker, CAD s/p PCI to RCA in 1998, DM II, HTN, dyslipidemia, CKD III, h/o Right TKA presented to [facility] as transfer from [facility] ER for right knee pain and edema and concern for right knee infection, fever. H istory RLE cellulitis treated 2 weeks ago with improvement. [facility] records: T: 38.1C, BP stable, Pulse 113-140. WBC of 13, Hgb 12.9, lactate and procalcitonin were WNL. CRP elevated at 15. Right knee x-ray obtained today at [facility]: No acute fracture, no acute hardware abnormality. At [facility] ER today ortho had aspirated right knee. Synovial fluid from today's aspiration: synovial fluid: Fluid clarity: Turbid, neutrophil %: 80% (0-25%), total nucleated cell count: 163,160 (0-180 cells/uL), RBC: 80,000 (<2000 cells/uL). Blood cultures were drawn today at [facility]. Follow these cultures. Patient given Zosyn, vancomycin, 1L NSS at [facility] prior to transfer Continue Zosyn, vancomycin IVF Requested to have xray images from [facility] to [facility] Ortho consult NPO midnight CBC, BMP in am 06/16/2021 Synovial fluid culture taken at [facility]: Positive for E. coli Blood cultures taken at cardiology Hospital: Gram-negative bacilli Status post I&D 06/15/2021 Drainage culture: Pending Continue IV Zosyn Daptomycin discontinued We will consult [facility] infectious disease Coumadin resumed July weight-bear as tolerated PT OT eval's continue Dapto + Zosyn, IV fluids Ortho planning for OR tomorrow afternoon Vit K given, INR 1.8 INR daily Positive mild dyspnea Chest x-ray: 1. Cardiomegaly without overt pulmonary edema. 2. Mild right lung basilar densities suggest atelectasis versus pneumonitis. Continue IV antibiotics Incentive spirometry Nebs as needed Monitor (2) Chronic atrial fibrillation: Plan: Chronic atrial fibrillation on chronic Coumadin Atrial fibrillation RVR Patient had A. fib RVR at [facility] ER. Troponin T: WNL. Patient currently asymptomatic. Likely secondary to underlying infection and missed beta janusz medication Resume home metoprolol tartrate IV Lopressor prn INR: 2.9 Will need to optimize prior to surgical procedure Hold Coumadin secondary to surgical procedure. Monitor INR. 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 Cardizem also started (3) Diabetes mellitus, type II: Plan: A1c: 8.0 on 05/28/2021 Insulin-dependent Basal bolus insulin per protocol (4) CAD (coronary artery disease): Plan: Status post PCI to RCA 1998 Denies chest pain, shortness of breath Continue rosuvastatin, metoprolol tartrate (5) CKD (chronic kidney disease), stage III: Plan: Acute Renal Failure on CKD 3 Cr: 1.0. Baseline 1.0 crea 1.6 likely from sepsis, dehydration IV fluids Patient improved to 1.3 Monitor renal functions, avoid nephrotoxic agents when possible (6) HTN (hypertension): Plan: Continue metoprolol tartrate (7) Sick sinus syndrome: Plan: S/p pacemaker (8) Dyslipidemia: Plan: Continue rosuvastatin DVT Prophylaxis INR 1.2 Coumadin restarted Full code as per discussion with pt Follows with Vitaliy Mcmillan for routine care plan of care discussed with patient in detail and at length all questions answered she is understanding, agreeable, comfortable with the plan of care Admission and Anticipated Discharge Date Admission Date: June 13, 2021 Subjective Follow-up for septic arthritis, atrial fibrillation, etc. Was reporting some shortness of breath with RN this morning Seen resting in bed on 2 L of oxygen Not in distress, appears comfortable States right knee pain is somewhat better today Does report mild dyspnea, occasional productive cough States she is very sensitive to perfumes No fevers or chills No chest pain, palpitations, dizziness Denies other symptom Review of Systems Review of Systems: all noted and negative except for above Physical Exam Physical Exam: General- oriented x 2, not in distress, speaks in sentences with no effort or accessory muscle use Eyes- anicteric Neck- no JVD Lungs-clear breath sounds, no crackles or wheezing bilaterally Heart- normal rate, irregular rhythm; no murmurs Abdomen- normal bowel sounds, nondistended, soft, nontender Extremities- no pretibial edema, no calf tenderness Right lower extremity: Heavy dressing in place, no bleeding or discharge noted Hemovac in place, small amount of sanguinous output Neuro- alert, oriented x 3; no gross focal neurologic deficits Skin- warm & dry Results & Data Results & Data ([facility]) Vital Signs (Past 12 Hours) Vital Signs Temp Pulse Pulse Pulse Resp BP Pulse Ox 06/16/21 11:52 36.7 C 112 H 19 110/66 95 06/16/21 11:47 96 H 18 98 06/16/21 11:17 94 H 06/16/21 07:45 37.4 C 94 H 16 116/66 96 all noted and reviewed including below
[2021-06-16] MEDS: WARFARIN SOD 2 MG TAB PO SCH (16:52)
[2021-06-16] MEDS: GABAPENTIN 100 MG CAP PO SCH (20:03)
[2021-06-16] MEDS: SENNA 8.6 MG TAB PO SCH (20:06)
[2021-06-17] MEDS: MoRPHine SULFATE 2 MG/ML CARP IV PRN ×4 (02:17→17:51)
[2021-06-17 05:57] LABS: Hematocrit (blood only) 26.6 % (37-47); Mean Corpuscular Hgb Conc 33.8 g/dL (32-36); Mean Corpuscular Volume 88.7 fL (80-100); Platelet Count 93 K/uL (130-400); White Blood Count 14.83 K/uL (4.8-10.8)
[2021-06-17 06:02] LABS: INR 1.3 (0.9-1.1); Prothrombin Time 13.6 Seconds (9.0-12.0)
[2021-06-17 06:06] LABS: ALC (manual) 1.79 K/uL (1.2-3.4); ANC (manual) 12.13 K/uL (1.4-6.5); Eosinophils # (manual) 0.13 K/uL (0-0.5); Eosinophils % (manual) 0.9 %; Lymphocytes # (manual) 1.79 K/uL (1.2-3.4); Lymphocytes % (manual) 12.1 %; Monocytes # (manual) 0.77 K/uL (0.11-0.59); Monocytes % (manual) 5.2 %; Neutrophils # (manual) 12.13 K/uL (1.4-6.5); Neutrophils % (manual) 81.8 %
[2021-06-17 06:25] LABS: Est GFR (African American) 38.2 ml/min; Est GFR (Non-African American) 32.9 ml/min; Potassium 3.5 mmol/L (3.5-5.1)
--- NOTE | 2021-06-17 06:46 | Orthopedic Progress Note ---
Date of Service June 17, 2021 Assessment & Plan (1) Septic joint of right knee joint: Plan: POD #2 s/p Right Knee Open Synovectomy, Irrigation and Debridement, Polyethylene Exchange and Placement Antibiotic Beads currently on Zosyn, ID consult placed LUPE wound vac x 7 days, will d/c hemovac today and dressing change. RICE PT- WBAT, ROM as tolerated Coumadin resumed Admission and Anticipated Discharge Date Admission Date: June 13, 2021 Subjective POD #2 s/p Right Knee Open Synovectomy, Irrigation and Debridement, Polyethylene Exchange and Placement Antibiotic Beads Review of Systems Constitutional: no fever and no chills Respiratory: no cough and no dyspnea Cardiovascular: no chest pain, no dyspnea and no orthopnea Gastrointestinal: no abdominal pain, no nausea and no vomiting Physical Exam Physical Exam: Vital Signs Temp 36.5 C 06/17/21 03:18 Pulse 98 H 06/17/21 03:18 Resp 18 06/17/21 03:18 BP 122/78 06/17/21 03:18 Pulse Ox 95 06/17/21 03:18 Intake & Output 06/16/21 06/16/21 06/17/21 06:59 18:59 06:59 Intake Total 1439.917 / 3559.91 7 1108.000 / 1773.00 0 665 / 1773.000 Output Total 465 / 865 2000 / 2975 975 / 2975 Balance 974.917 / 2694.917 -892.000 / -1202.0 00 -310 / -1202.000 Weight 107.2 kg Intake: IV 1089.917 / 3209.91 7 1108.000 / 1348.00 0 240 / 1348.000 Piperacillin/T azobactam 4.5 gm 120 / 240 120 / 360 240 / 360 In Dextrose 5% 100 ml @ 30 mls/ hr IV Q8H NUPUR Rx#:[id number] Sodium Chlorid e 0.9% 1000ML 1, 926.667 / 2926.667 800 / 800 000 ml @ 100 m ls/hr IV .Q10H NUPUR Rx#:[id number] dilTIAZem HCL 125 mg In 43.25 / 43.25 188.000 / 188.000 Dextrose 5% 10 0 ml @ 10 MG/HR 10 mls/hr IV . [id number] NUPUR Rx#: [id number] IV Perioperative 150 / 150 Oral 200 / 200 425 / 425 Output: Estimated Blood Loss 15 / 15 Urine Amount (Ca theter) 350 / 750 2000 / 2850 850 / 2850 [place]/Indwelli ng 350 / 750 2000 / 2850 850 / 2850 Drain Output 100 / 100 125 / 125 Right Knee 100 / 100 125 / 125 Other: Weight Measureme nt Method Built in [facility] Musculoskeletal: Right Leg: dressing is clean and dry, no drainage noted. able to wiggle toes, plantar/dorsiflex ankle without difficult. calf SNT Results & Data ([facility]) Vital Signs (Past 12 Hours) Vital Signs Temp Pulse Pulse Resp BP Pulse Ox 06/17/21 03:18 36.5 C 98 H 18 122/78 95 06/16/21 23:08 36.9 C 105 H 18 139/77 97 06/16/21 22:20 110 H 06/16/21 19:15 37.0 C 100 H 18 116/69 96
[2021-06-17] MEDS: PIPERACILLIN/TAZOBACTAM 4.5 GM in DEXTROSE 5% 100 ML IV SCH ×3 (07:37→22:42)
[2021-06-17] MEDS: dilTIAZem HCL 30 MG TAB PO SCH ×2 (08:33→12:08)
[2021-06-17] MEDS: METOPROLOL TARTRATE 50 MG TAB PO SCH ×2 (08:34→20:11)
[2021-06-17] MEDS: DOCUSATE SODIUM 100 MG CAP PO SCH ×2 (08:34→20:08)
[2021-06-17] MEDS: ROSUVASTATIN CALCIUM 10 MG TAB PO SCH (08:35)
[2021-06-17] MEDS: MULTIVITAMIN TAB PO SCH (08:35)
[2021-06-17] MEDS: INSULIN ASPART PER UNIT SC SCH ×4 (08:37→20:18)
[2021-06-17] MEDS: INSULIN GLARGINE SOLOSTAR 100 UNITS/ML 3 ML PEN SC SCH ×2 (08:37→20:19)
[2021-06-17] MEDS: METOPROLOL TARTRATE 1 MG/ML VIAL IV PRN (10:33)
--- NOTE | 2021-06-17 12:27 | Hospitalist Progress Note ---
Date of Service June 17, 2021 Assessment & Plan (1) Septic joint of right knee joint: Plan: Septic arthritis: Bacteremia Per admitting service notes with addendum: Patient is 75-year-old female with history of chronic atrial fibrillation on Coumadin, SSS s/p pacemaker, CAD s/p PCI to RCA in 1998, DM II, HTN, dyslipidemia, CKD III, h/o Right TKA presented to [facility] as transfer from [facility] ER for right knee pain and edema and concern for right knee infection, fever. H istory RLE cellulitis treated 2 weeks ago with improvement. [facility] records: T: 38.1C, BP stable, Pulse 113-140. WBC of 13, Hgb 12.9, lactate and procalcitonin were WNL. CRP elevated at 15. Right knee x-ray obtained today at [facility]: No acute fracture, no acute hardware abnormality. At [facility] ER today ortho had aspirated right knee. Synovial fluid from today's aspiration: synovial fluid: Fluid clarity: Turbid, neutrophil %: 80% (0-25%), total nucleated cell count: 163,160 (0-180 cells/uL), RBC: 80,000 (<2000 cells/uL). Blood cultures were drawn today at [facility]. Follow these cultures. Patient given Zosyn, vancomycin, 1L NSS at [facility] prior to transfer Continue Zosyn, vancomycin IVF Requested to have xray images from [facility] to [facility] Ortho consult NPO midnight CBC, BMP in am 06/17/2021 Synovial fluid culture taken at [facility]: Positive for E. coli Blood cultures taken at cardiology Hospital: Gram-negative bacilli Status post I&D 06/15/2021 Drainage culture: E coli Continue IV Zosyn Daptomycin discontinued consulted [facility] infectious disease Coumadin resumed July weight-bear as tolerated PT OT eval's Possible R sided Pneumonia sputum culture: gram negative baciili Positive mild dyspnea Chest x-ray: 1. Cardiomegaly without overt pulmonary edema. 2. Mild right lung basilar densities suggest atelectasis versus pneumonitis. continue Zosyn IV (2) Chronic atrial fibrillation: Plan: Chronic atrial fibrillation on chronic Coumadin Atrial fibrillation RVR Patient had A. fib RVR at [facility] ER. Troponin T: WNL. Patient currently asymptomatic. Likely secondary to underlying infection and missed beta jaunsz medication Resume home metoprolol tartrate IV Lopressor prn INR: 2.9 Will need to optimize prior to surgical procedure Hold Coumadin secondary to surgical procedure. Monitor INR. 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 fib with RVR Metoprolol increased to 150mg BID weaned off diltiazem drip Currently p.o. Cardizem also started INR 1.3 on coumadin (3) Diabetes mellitus, type II: Plan: A1c: 8.0 on 05/28/2021 Insulin-dependent Basal bolus insulin per protocol (4) CAD (coronary artery disease): Plan: Status post PCI to RCA 1998 Denies chest pain, shortness of breath Continue rosuvastatin, metoprolol tartrate (5) CKD (chronic kidney disease), stage III: Plan: Acute Renal Failure on CKD 3 Cr: 1.0. Baseline 1.0 crea 1.6 likely from sepsis, dehydration IV fluids Patient improved to 1.5 Monitor renal functions, avoid nephrotoxic agents when possible (6) HTN (hypertension): Plan: Continue metoprolol tartrate (7) Sick sinus syndrome: Plan: S/p pacemaker (8) Dyslipidemia: Plan: Continue rosuvastatin DVT Prophylaxis INR 1.3 Coumadin restarted Full code as per discussion with pt Follows with Vitaliy Mcmillan for routine care plan of care discussed with patient in detail and at length all questions answered she is understanding, agreeable, comfortable with the plan of care Admission and Anticipated Discharge Date Admission Date: June 13, 2021 Subjective ff up for septic arthritis, etc seen resting in bed, not in distress on room air states she feels tired, but otherwise ok breathing improving, less cough no chest pain, palpitations, dizziness no abdminal pain, n/v mild-mo discomfort R LE no other symptoms Review of Systems Review of Systems: all noted and negative except for above Physical Exam Physical Exam: General- oriented x 3, not in distress, speaks in sentences with no effort or accessory muscle use Eyes- anicteric Neck- no JVD Lungs- clear BS BL no rales/wheezing Heart- normal rate,irregularly irregular rhythm; no murmurs Abdomen- normal bowel sounds, nondistended, soft, nontender Extremities- no pretibial edema, no calf tenderness RLE: heaving dressing in place Neuro- alert, oriented x 3; no gross focal neurologic deficits Skin- warm & dry Results & Data Results & Data ([facility]) Vital Signs (Past 12 Hours) Vital Signs Temp Pulse Pulse Resp BP BP Pulse Ox 06/17/21 11:29 36.5 C 95 H 18 120/70 95 06/17/21 10:33 130 H 127/82 06/17/21 08:00 06/17/21 07:31 36.7 C 108 H 20 192/72 H 94 06/17/21 07:20 116 H 06/17/21 03:18 36.5 C 98 H 18 122/78 95 Pulse Ox 06/17/21 11:29 06/17/21 10:33 06/17/21 08:00 94 06/17/21 07:31 06/17/21 07:20 06/17/21 03:18
--- NOTE | 2021-06-17 13:23 | Cardiology Progress Note ---
Date of Service June 17, 2021 Assessment & Plan (1) Septic joint of right knee joint: (2) Preop cardiovascular exam: (3) HTN (hypertension): (4) Atrial fibrillation with RVR: (5) Pacemaker: Plan: The patient is having persistent high heart rates. I will increase her diltiazem to 60 mg 3 times daily. Her blood pressure should handle it and she has a pacemaker. Admission and Anticipated Discharge Date Admission Date: June 13, 2021 Subjective The patient is resting comfortably. Review of Systems Review of Systems: Review of Systems: See HPI for pertinent positives. All other 10 point review of systems are negative. Physical Exam Physical Exam: General: no acute distress and stated age Head: normocephalic, no masses, lesions, tenderness or abnormalities Eyes: conjunctiva are pink and non-injected, sclera clear Neck: supple, no adenopathy, no bruits, normal jugular venous pulse, no hepatojugular reflux Chest: normal shape and normal respiratory effort Lungs: clear to auscultation and percussion Cardiac Exam: - regular rate & rhythm, no murmurs gallops or rubs - normal S1, normal S2 Pulses: 2(+) throughout Abdomen: abdomen soft, non-tender, no abnormal masses and no hepatosplenomegaly Musculoskeletal: no gait disturbance, no joint inflammation, no deforming arthritis Extremities: no edema and no cyanosis Neuro: grossly normal exam Results & Data ([facility]) Vital Signs (Past 12 Hours) Vital Signs Temp Pulse Pulse Resp BP BP Pulse Ox 06/17/21 11:29 36.5 C 95 H 18 120/70 95 06/17/21 10:33 130 H 127/82 06/17/21 08:00 06/17/21 07:31 36.7 C 108 H 20 192/72 H 94 06/17/21 07:20 116 H 06/17/21 03:18 36.5 C 98 H 18 122/78 95 Pulse Ox 06/17/21 11:29 06/17/21 10:33 06/17/21 08:00 94 06/17/21 07:31 06/17/21 07:20 06/17/21 03:18 Laboratory Results Laboratory Results - last 24 hr 06/16/21 06/16/21 06/17/21 16:13 20:15 05:23 WBC 14.83 H RBC 3.00 L Hgb 9.0 L Hct 26.6 L MCV 88.7 MCH 30.0 MCHC 33.8 RDW Std Deviation 46.0 RDW Coeff of Kavon 14.0 Plt Count 93 L MPV 12.0 H Neutrophils % (Manual) 81.8 Lymphocytes % (Manual) 12.1 Monocytes % (Manual) 5.2 Eosinophils % (Manual) 0.9 Neutrophils # (Manual) 12.13 H Total Absolute Neuts 12.13 H Lymphocytes # (Manual) 1.79 Total Abs Lymphocytes 1.79 Monocytes # (Manual) 0.77 H Eosinophils # (Manual) 0.13 PT INR Sodium Potassium Chloride Carbon Dioxide Anion Gap BUN Creatinine Est Cr Clr Drug Dosing Est GFR ( Amer) Est GFR (Non-Af Amer) BUN/Creatinine Ratio Glucose POC Glucose 234 H 237 H Calcium 06/17/21 06/17/21 06/17/21 05:23 05:23 07:27 WBC RBC Hgb Hct MCV MCH MCHC RDW Std Deviation RDW Coeff of Kavon Plt Count MPV Neutrophils % (Manual) Lymphocytes % (Manual) Monocytes % (Manual) Eosinophils % (Manual) Neutrophils # (Manual) Total Absolute Neuts Lymphocytes # (Manual) Total Abs Lymphocytes Monocytes # (Manual) Eosinophils # (Manual) PT 13.6 H INR 1.3 H Sodium 134 L Potassium 3.5 D Chloride 106 Carbon Dioxide 21 Anion Gap 7 BUN 29 H Creatinine 1.53 H Est Cr Clr Drug Dosing 38.0 Est GFR ( Amer) 38.2 Est GFR (Non-Af Amer) 32.9 BUN/Creatinine Ratio 19.0 Glucose 203 H POC Glucose 216 H Calcium 8.0 L 06/17/21 11:46 WBC RBC Hgb Hct MCV MCH MCHC RDW Std Deviation RDW Coeff of Kavon Plt Count MPV Neutrophils % (Manual) Lymphocytes % (Manual) Monocytes % (Manual) Eosinophils % (Manual) Neutrophils # (Manual) Total Absolute Neuts Lymphocytes # (Manual) Total Abs Lymphocytes Monocytes # (Manual) Eosinophils # (Manual) PT INR Sodium Potassium Chloride Carbon Dioxide Anion Gap BUN Creatinine Est Cr Clr Drug Dosing Est GFR ( Amer) Est GFR (Non-Af Amer) BUN/Creatinine Ratio Glucose POC Glucose 173 H Calcium Medications Administered Current Inpatient Medications Acetaminophen (Acetaminophen 325 Mg Tab) 650 mg PO Q4H PRN PRN Reason: Pain or Fever Stop: 07/13/21 13:26 Last Admin: 06/14/21 09:03 Dose: 650 mg Documented by: Alprazolam (Alprazolam 0.25 Mg Tablet) 0.25 mg PO HS PRN PRN Reason: Anxiety Stop: 07/13/21 17:36 Last Admin: 06/15/21 08:52 Dose: 0.25 mg Documented by: Bisacodyl (Bisacodyl 10 Mg Supp) 10 mg TN DAILY PRN PRN Reason: Constipation Stop: 07/15/21 19:23 Dextrose (Dextrose 50% 50 Ml Syringe) 25 - 50 ml IV UD PRN; Protocol PRN Reason: Hypoglycemia Protocol Stop: 07/13/21 14:18 Diltiazem HCl (Diltiazem Hcl 60 Mg Tab) 60 mg PO TID [facility] Stop: 07/17/21 13:59 Docusate Sodium (Docusate Sodium 100 Mg Cap) 100 mg PO BID [facility] Stop: 07/15/21 20:59 Last Admin: 06/17/21 08:34 Dose: 100 mg Documented by: Gabapentin (Gabapentin 100 Mg Cap) 100 mg PO HS NUPUR Stop: 07/13/21 20:59 Last Admin: 06/16/21 20:03 Dose: Not Given Documented by: Glucagon (Glucagon For Inj 1 Mg Vial) 1 mg SQ UD PRN; Protocol PRN Reason: Hypoglycemia Protocol Stop: 07/13/21 14:18 Glucose (Glucose 10 Tabs/Tube) 4 - 8 tabs PO UD PRN; Protocol PRN Reason: Hypoglycemia Protocol Stop: 07/13/21 14:18 Glucose (Glucose 40% Gel 15 Gm Tube) 15 - 30 gm PO UD PRN; Protocol PRN Reason: Hypoglycemia Protocol Stop: 07/13/21 14:18 Piperacillin Sod/Tazobactam (Sod 4.5 gm/ Dextrose) 120 mls @ 30 mls/hr IV Q8H [facility]; Protocol Stop: 07/26/21 00:00 Last Infusion: 06/17/21 12:35 Dose: Infused Documented by: Diltiazem HCl 125 mg/ Dextrose 125 mls @ 10 mls/hr IV .[id number] [facility]; Protocol Stop: 07/15/21 09:59 Last Titration: 06/16/21 16:25 Dose: 0 mg/hr, 0 mls/hr Documented by: Insulin Aspart (Insulin Aspart Per Unit) 0 units SC ACHS [facility] Stop: 07/13/21 16:29 Last Admin: 06/17/21 12:24 Dose: 5 units Documented by: Insulin Glargine (Insulin Glargine Solostar 100 Units/Ml 3 Ml Pen) 0 - 40 units SC BID [facility] Stop: 07/13/21 20:59 Last Admin: 06/17/21 08:37 Dose: 40 units Documented by: Magnesium Hydroxide (Magnesium Hydroxide Susp 30 Ml Udc) 30 ml PO Q12H PRN PRN Reason: Constipation Stop: 07/13/21 13:26 Last Admin: 06/14/21 20:22 Dose: 30 ml Documented by: Magnesium Hydroxide (Magnesium Hydroxide Susp 30 Ml Udc) 30 ml PO Q6H PRN PRN Reason: Constipation Stop: 07/15/21 19:23 Metoclopramide HCl (Metoclopramide Hcl Inj 5 Mg/Ml 2 Ml Vial) 10 mg IV Q6H PRN PRN Reason: Nausea And Vomiting Stop: 07/15/21 19:23 Metoprolol Tartrate (Metoprolol Tartrate 1 Mg/Ml Vial) 5 mg IV Q6 PRN; Protocol PRN Reason: Tachycardia Stop: 07/13/21 17:59 Last Admin: 06/17/21 10:33 Dose: 5 mg Documented by: Metoprolol Tartrate (Metoprolol Tartrate 50 Mg Tab) 150 mg PO BID [facility] Stop: 07/14/21 20:59 Last Admin: 06/17/21 08:34 Dose: 150 mg Documented by: Miscellaneous (Carbohydrates For Hypoglycemia ) 15 - 30 gm PO UD PRN PRN Reason: Hypoglycemia Protocol Stop: 07/13/21 14:18 Miscellaneous Information (Piperacill/Tazobac Consult Active) 1 ea N/A UD PRN PRN Reason: Consult Stop: 07/13/21 15:24 Morphine Sulfate (Morphine Sulfate 2 Mg/Ml Carp) 2 mg IV Q3H PRN PRN Reason: Severe Pain Stop: 06/27/21 14:39 Last Admin: 06/17/21 10:33 Dose: 2 mg Documented by: Multivitamins (Multivitamin Tab) 1 tab PO QAM [facility] Stop: 07/16/21 08:59 Last Admin: 06/17/21 08:35 Dose: 1 tab Documented by: Ondansetron HCl (Ondansetron Inj 2 Mg/Ml 2 Ml Vial) 4 mg IV Q6H PRN PRN Reason: Nausea Stop: 07/13/21 13:26 Last Admin: 06/15/21 19:51 Dose: 4 mg Documented by: Oxycodone HCl (Oxycodone Hcl Ir 5 Mg Tab (Immediate Release)) 5 mg PO Q6H PRN PRN Reason: Moderate Pain Stop: 06/27/21 14:39 Last Admin: 06/15/21 08:52 Dose: 5 mg Documented by: Polyethylene Glycol (Polyethylene (Miralax) 17 Gm Pack) 17 gm PO DAILY PRN PRN Reason: Constipation Stop: 07/13/21 13:26 Rosuvastatin Calcium (Rosuvastatin Calcium 10 Mg Tab) 10 mg PO DAILY [facility] Stop: 07/14/21 08:59 Last Admin: 06/17/21 08:35 Dose: 10 mg Documented by: Sennosides (Senna 8.6 Mg Tab) 17.2 mg PO [facility] Stop: 07/15/21 20:59 Last Admin: 06/16/21 20:06 Dose: 17.2 mg Documented by: Warfarin Sodium (Warfarin Sod 2 Mg Tab) 2 mg PO [id number]@1600 [facility] Stop: 07/16/21 15:59 Last Admin: 06/16/21 16:52 Dose: 2 mg Documented by: Warfarin Sodium (Warfarin Sod 1 Mg Tab) 1 mg PO Mo@1600 [facility] Stop: 07/18/21 15:59
[2021-06-17] MEDS ORDERED: dilTIAZem HCL 30 MG TAB PO ONE (14:00)
[2021-06-17] MEDS: WARFARIN SOD 2 MG TAB PO SCH (15:59)
[2021-06-17] MEDS: GABAPENTIN 100 MG CAP PO SCH (20:09)
[2021-06-17] MEDS: SENNA 8.6 MG TAB PO SCH (20:09)
[2021-06-17] MEDS: dilTIAZem HCl 60 MG TAB PO SCH (20:11)
[2021-06-18] MEDS ORDERED: Nursing to Pharmacy Communication SCH (01:00)
[2021-06-18] MEDS: MoRPHine SULFATE 2 MG/ML CARP IV PRN ×2 (01:16→08:30)
[2021-06-18 06:39] LABS: Basophils # (auto) 0.02 K/uL (0-0.2); Basophils % (auto) 0.1 %; Eosinophils # (auto) 0.14 K/uL (0-0.5); Eosinophils % (auto) 0.8 %; Hematocrit (blood only) 26.3 % (37-47); Hemoglobin 9.3 g/dL (12.0-16.0); Immature Granulocytes # (auto) 0.18 K/uL (0.00-0.02); Immature Granulocytes % (auto) 1.1 %; Lymphocytes # (auto) 2.95 K/uL (1.2-3.4); Lymphocytes % (auto) 17.4 %; Mean Corpuscular Hemoglobin 30.9 pg (25-34); Mean Corpuscular Hgb Conc 35.4 g/dL (32-36); Mean Corpuscular Volume 87.4 fL (80-100); Mean Platelet Volume 11.1 fL (7.4-10.4); Monocytes # (auto) 2.07 K/uL (0.11-0.59); Monocytes % (auto) 12.2 %; Neutrophils # (auto) 11.58 K/uL (1.4-6.5); Neutrophils % (auto) 68.4 %; Platelet Count 134 K/uL (130-400); RDW Standard Deviation 44.8 fL (36.4-46.3); Red Blood Count 3.01 M/uL (4.2-5.4); White Blood Count 16.94 K/uL (4.8-10.8)
--- NOTE | 2021-06-18 06:49 | Orthopedic Progress Note ---
Date of Service June 18, 2021 Assessment & Plan (1) Septic joint of right knee joint: Plan: POD #3 s/p Right Knee Open Synovectomy, Irrigation and Debridement, Polyethylene Exchange and Placement Antibiotic Beads -currently on Zosyn, ID consult placed. Cultures growing pansensitive E. coli. Patient will likely require at least 6 weeks IV antibiotics and likely oral antibiotics thereafter. Will await ID recommendations. -LUPE wound vac x 7 days -PT- WBAT, ROM as tolerated -DVT prophylaxis: Coumadin resumed -Discharge planning: Patient require inpatient rehab upon discharge. -Follow-up with Dr. Tran's office about 14 days postoperatively for reevaluation and staple removal. Patient can call [phone] for an appointment. Admission and Anticipated Discharge Date Admission Date: June 13, 2021 Subjective Postop day 3 right knee I&D and poly exchange. Patient is improving in regards to her knee pain. She has not really gotten up and ambulated yet. They will be attempting again today. She has no other complaints. Denies chest pain, shortness of breath, fever/chills/headaches. Review of Systems Review of Systems: All systems reviewed & are unremarkable except as noted in Subjective Physical Exam Physical Exam: Right knee: Dressing to Hemovac site is clean, dry, intact. Lupe superficial wound VAC is in place and functioning with mild drainage and window. No surrounding erythema to the knee. Mild ecchymosis. Moderate amount of swelling about her knee with mild tenderness superior aspect of her knee. No calf tenderness. Calves are soft. Toes are mobile. Good dorsiflexion. Distally neurovascular status and sensation intact. Constitutional: WD/WN, vitals as above Results & Data ([facility]) Vital Signs (Past 12 Hours) Vital Signs Temp Pulse Pulse Resp BP Pulse Ox 06/18/21 03:05 36.8 C 105 H 18 122/71 93 06/17/21 23:22 37.6 C H 96 H 18 119/56 L 94 06/17/21 22:30 99 H 06/17/21 19:09 37.3 C 102 H 17 115/69 94 Laboratory Results Name: HAYDEN ORTIZ Acct: [id number] Status: ADM [place] : 1945 [facility] [place] Date: 06/13/21 Age: 75 Sex: F Dis Date: Loc: Telemetry [address] [place] [address]/Bed: S242-1 Spec: [id number] Collected: 06/15/21-UNK Received: 06/15/[address]: Josiah Tran M.D. Copy To: Andre Denson MD Source: Knee,Right OV Order: Ordered: Aer/Carlene Cult/Sm Comments: Comment Culture 1: Right Knee Synovial Fluid Procedure Result Verified Site Gram Stain Final 06/16/21 Gram Stain Result Few WBCs Seen No Organisms Seen Aero/Carlene Cult Preliminary 06/17/21 Organism 1 Escherichia coli Quantity Moderate Sens Sensitivities to Follow E coli RX M.I.C. --- --------- Amox/Clav S <=8/4 Ampicillin S <=8 Amp/Sul S <=8/4 Cefazolin S <=2 Cefepime S <=2 Ceftriaxone S <=1 Ciprofloxacin S <=0.25 Ertapenem S <=0.5 Gentamicin S <=4 Levofloxacin S <=0.5 Meropenem S <=1 Tobramycin S <=4 Trimeth/Sulfa S <=2/38 Pip/Tazo S <=16 S = SENSITIVE I = INTERMEDIATE R = RESISTANT
[2021-06-18 06:51] LABS: INR 1.8 (0.9-1.1); Prothrombin Time 18.3 Seconds (9.0-12.0)
[2021-06-18 07:05] LABS: BUN Creatinine Ratio 16.6 (10-20); Calcium 8.5 mg/dl (8.5-10.1); Creatinine Clr Calc Pharmacy 39.7 ml/min; Est GFR (African American) 40.7 ml/min; Est GFR (Non-African American) 35.1 ml/min; Potassium 3.5 mmol/L (3.5-5.1)
--- NOTE | 2021-06-18 08:11 | Operative Report (OR) ---
DATE OF PROCEDURE: 06/15/2021. INDICATION FOR PROCEDURE: A 75-year-old female with history of right total knee replacement with rev ision components used for primary total knee due to the severity of the condition. This was performe d by myself back in 2005. The patient had no problems with her knee until a few days ago when she de veloped increased pain, swelling in her knee. About a month before, she did have some cellulitis in that leg. She was seen in emergency room in [facility]. Knee was aspirated for purulent flu id consistent with infection. All laboratory values were consistent with a septic knee with white bl ood cell count over 100,000. Gram stain was gram-negative bacilli and eventual culture, E. coli. No history of urinary tract infection at this time per the patient. Radiographs demonstrate she has st emmed femoral and tibial components with augments and a constrained tibial polyethylene with no evide nce of any loosening of the components. PREOPERATIVE DIAGNOSES: Acute septic right knee replacement with no loosening of components, also ob esity, BMI 37.4. POSTOPERATIVE DIAGNOSES: Acute septic right total knee replacement, heterotopic bone, lateral retina cular area, lateral synovial area; and obesity, BMI 37.4 PROCEDURE: Right knee open irrigation and debridement with electrocautery, synovectomy, and Versajet debridement with excision of heterotopic bone and tibial polyethylene exchange with antibiotic bead placement with tobramycin and superficial wound VAC application. SURGEON: Josiah Tran MD GLUER AND SLICER HAND: CARA Reynoso ESTIMATED BLOOD LOSS: 15 mL. FINDINGS: Cloudy fluid in joint consistent with septic knee replacement. No loosening of any implan t. Heterotopic bone, lateral retinaculum. Hemorrhagic synovitis, chronic, possibly related to histo ry of AFib, on chronic anticoagulants, intraoperative findings consistent with an acute infection and no chronic infection or loosening. SPECIMENS: Culture swabs x2 and synovial tissue. DRAINS: The patient presented with a Milan catheter and two Hemovac drains were placed in the knee j oint. ANESTHESIA: General, regional. COMPLICATIONS: None. DISPOSITION: Recovery room. OVERLAP PROCEDURE: None. DESCRIPTION OF PROCEDURE: The patient was placed supine on the operating room table. Exam demonstra genevieve a moderately large knee effusion and some ecchymosis laterally where she had an aspiration of her knee and obese thigh and knee. Range of motion was 0 through 100. A pneumatic tourniquet was place d about the obese right upper thigh. Right lower extremity was prepped and draped with ChloraPrep. Right lower extremity was elevated and no Esmarch was used due to infection. The pneumatic tournique t was then raised to 350 mmHg. Her previous anterior scar was used for a longitudinal incision. Ski n was incised sharply through some edematous tissue. Subcutaneous flaps were elevated. There was so me bloody subcutaneous area where she had the knee aspiration. The extensor mechanism was all intact . An incision was then made through the medial retinaculum into the joint and there was cloudy yello wish fluid consistent with an infected knee joint fluid. Two swab cultures were obtained. Incision was carried down to the medial tibial tubercle up into the mid third of the quadriceps tendon. The k nee joint was then irrigated copiously with antibiotic solution with Ancef. Then, electrocautery syn ovectomy was performed removing all the synovium in the suprapatellar pouch, medial and lateral gutte rs. After further irrigation, the tibial polyethylene was then removed. There was a central post th at we had to rongeur down the central post, so we could access the stabilization device within the po st, which was removed with a rongeur and then a curved osteotome was used to break the wire and remov e the tibial polyethylene. This gave better access to the knee after which further irrigation was pe rformed. So more synovectomy was performed with a pituitary rongeur and then a Versajet was used to completely debride the knee of all areas of infected tissue. After further irrigation with antibioti c solution with Ancef, the trial was placed. This was a Bud Scorpio knee replacement, size 7 and the size 7, 12 mm thickness trial was placed upsizing a component 2 mm from the prior implant. This had good stability through 0 through 125 degrees range of motion. The patella tracked centrally. T he trial was removed. After further irrigation of the knee joint, then an antibiotic soak was perfor med with Betadine and we used a Betadine scrub to the metal surfaces. After a 3-minute soak with Bet adine, then the knee was again irrigated out with antibiotic solution. We changed all instruments, g loves, and drapes, were covered over to a clean area. The final component was then placed in positio n, which was the 12 posterior stabilized size 7 right Bud Scorpio posterior stabilized polyethyle ne component. This was impacted in position. The knee was stable through full range of motion. Aft er further irrigation with antibiotic solution with Ancef, the Stimulan beads were made with 10 mL of Stimulan beads with tobramycin. These were placed in the suprapatellar pouch and the gutters. Two drains were brought out laterally, connected to Hemovac. Quadriceps tendon and medial retinaculum we re closed with interrupted [id number] #1 Vicryl sutures, which were bacteriostatic sutures. Sim ilar 2-0 bacterial resistant sutures were placed in the subcutaneous tissues. Prior to closing the s ubcutaneous tissues, knee was taken through full range of motion and the retinacular repair was secur e. The skin was then closed with skin chemo and a superficial wound VAC was applied. During the s ynovectomy, some heterotopic bone was encountered, the anterolateral joint line adjacent to the later al retinaculum area. This was enveloped within the synovial tissue adjacent to the lateral tibial pl ateau and lateral retinacular area of the patella. This was shelled out with electrocautery and lilia brian. After the superficial wound VAC was applied, Carlo wrap was placed from the foot to the thigh. T he tourniquet was let down. The patient had normal capillary refill to the extremity and she tolerat ed the procedure well. CARA Reynoso, was my registered nurse first assistant. He functioned as registered nurse first assistant throughout the procedure. He assisted in soft tissue retraction, assisted in all aspects of the pro cedure including the closure and application of superficial wound VAC and postoperative care of the p atient as well. Job ID: [id number]
[2021-06-18] MEDS: PIPERACILLIN/TAZOBACTAM 4.5 GM in DEXTROSE 5% 100 ML IV SCH (08:13)
[2021-06-18] MEDS: INSULIN ASPART PER UNIT SC SCH ×4 (08:14→21:02)
[2021-06-18] MEDS: INSULIN GLARGINE SOLOSTAR 100 UNITS/ML 3 ML PEN SC SCH ×2 (08:15→21:02)
[2021-06-18] MEDS: METOPROLOL TARTRATE 50 MG TAB PO SCH (08:20)
[2021-06-18] MEDS: dilTIAZem HCl 60 MG TAB PO SCH ×3 (08:20→20:07)
[2021-06-18] MEDS: DOCUSATE SODIUM 100 MG CAP PO SCH ×2 (08:21→20:06)
[2021-06-18] MEDS: ROSUVASTATIN CALCIUM 10 MG TAB PO SCH (08:21)
[2021-06-18] MEDS: MULTIVITAMIN TAB PO SCH (08:21)
[2021-06-18] MEDS ORDERED: CONSULT PHARMACY STA (08:36)
[2021-06-18] MEDS ORDERED: CEFEPIME 2,000 MG in SYRINGE 0 ML IV SCH (10:00)
[2021-06-18] MEDS: levoFLOXacin 750 MG TAB PO SCH (12:17)
[2021-06-18] MEDS: oxyCODONE/ACETAMINOPHEN 5mg/325mg TAB PO PRN ×2 (12:40→21:01)
--- NOTE | 2021-06-18 13:44 | Cardiology Progress Note ---
Date of Service June 18, 2021 Assessment & Plan (1) Septic joint of right knee joint: (2) Preop cardiovascular exam: (3) HTN (hypertension): (4) Atrial fibrillation with RVR: (5) Pacemaker: Plan: Patient with persistently elevated atrial fibrillation rates. Medications will be titrated upward will discontinue metoprolol tartrate change to metoprolol succinate for further heart rate control continue current dosing of diltiazem as blood pressure allows. Given bacteremia, septic joint echocardiogram ordered to assess valve structures pacemaker lead. Agree patient will require extended antibiotic course Admission and Anticipated Discharge Date Admission Date: June 13, 2021 Subjective Patient was seen and examined, chart, medications, telemetry reviewed. Still running somewhat higher heart rates but tolerating current therapies regarding blood pressure. No cardiac complaints. No tenderness at pacemaker site. Physical Exam Constitutional: WD/WN, vitals as above well developed, well nourished and + obese; no acute distress Respiratory: normal respiratory effort, lungs clear to auscultation no respiratory distress, no labored breathing and no retractions Auscultation: + diminished lung sounds; breath sounds present, no crackles, no rales, no rhonchi and no wheezes Cardiovascular: Rate/Rhythm: + tachycardic and + irregularly irregular Heart Sounds: normal S1 and normal S2; no murmur Vessels: no JVD and no carotid bruit Extremities: + edema (trace b/l ankle edema; ) Chest (Breasts): Chest: + pacemaker Gastrointestinal (Abdomen): normal bowel sounds, soft, nontender, no hepatosplenomegaly Musculoskeletal: Knee: knee normal to inspection (Right knee edema) Neurologic: PERRL, EOMI, accommodation nl, no face palsy, no dysarthria CN's II-XI intact bilaterally and moves all extremities; no focal motor deficits Psychiatric: A+Ox3, euthymic affect Results & Data ([facility]) Vital Signs (Past 12 Hours) Vital Signs Temp Pulse Pulse Resp BP BP Pulse Ox 06/18/21 11:40 36.6 C 103 H 16 129/67 95 06/18/21 08:00 06/18/21 07:29 37.6 C H 96 H 14 140/92 95 06/18/21 07:06 112 H 06/18/21 03:05 36.8 C 105 H 18 122/71 93 Pulse Ox 06/18/21 11:40 06/18/21 08:00 95 06/18/21 07:29 06/18/21 07:06 06/18/21 03:05 Laboratory Results Laboratory Results - last 24 hr 06/17/21 06/17/21 06/18/21 16:13 20:07 06:23 WBC 16.94 H RBC 3.01 L Hgb 9.3 L Hct 26.3 L MCV 87.4 MCH 30.9 MCHC 35.4 RDW Std Deviation 44.8 RDW Coeff of Kavon 14.0 Plt Count 134 MPV 11.1 H Immature Gran % (Auto) 1.1 Neut % (Auto) 68.4 Lymph % (Auto) 17.4 [place] % (Auto) 12.2 Eos % (Auto) 0.8 Baso % (Auto) 0.1 Neut # (Auto) 11.58 H Lymph # (Auto) 2.95 [place] # (Auto) 2.07 H Eos # (Auto) 0.14 Baso # (Auto) 0.02 Immature Gran # (Auto) 0.18 H PT INR Sodium Potassium Chloride Carbon Dioxide Anion Gap BUN Creatinine Est Cr Clr Drug Dosing Est GFR ( Amer) Est GFR (Non-Af Amer) BUN/Creatinine Ratio Glucose POC Glucose 202 H 228 H Calcium 06/18/21 06/18/21 06/18/21 06:23 06:23 07:30 WBC RBC Hgb Hct MCV MCH MCHC RDW Std Deviation RDW Coeff of Kavon Plt Count MPV Immature Gran % (Auto) Neut % (Auto) Lymph % (Auto) [place] % (Auto) Eos % (Auto) Baso % (Auto) Neut # (Auto) Lymph # (Auto) [place] # (Auto) Eos # (Auto) Baso # (Auto) Immature Gran # (Auto) PT 18.3 H INR 1.8 H Sodium 136 Potassium 3.5 Chloride 105 Carbon Dioxide 22 Anion Gap 9 BUN 24 H Creatinine 1.45 H Est Cr Clr Drug Dosing 39.7 Est GFR ( Amer) 40.7 Est GFR (Non-Af Amer) 35.1 BUN/Creatinine Ratio 16.6 Glucose 118 H POC Glucose 135 H Calcium 8.5 06/18/21 11:35 WBC RBC Hgb Hct MCV MCH MCHC RDW Std Deviation RDW Coeff of Kavon Plt Count MPV Immature Gran % (Auto) Neut % (Auto) Lymph % (Auto) [place] % (Auto) Eos % (Auto) Baso % (Auto) Neut # (Auto) Lymph # (Auto) [place] # (Auto) Eos # (Auto) Baso # (Auto) Immature Gran # (Auto) PT INR Sodium Potassium Chloride Carbon Dioxide Anion Gap BUN Creatinine Est Cr Clr Drug Dosing Est GFR ( Amer) Est GFR (Non-Af Amer) BUN/Creatinine Ratio Glucose POC Glucose 146 H Calcium
[2021-06-18] MEDS ORDERED: PERFLUTREN LIPID MICROSPHERE (DEFINITY) IV ONE (14:54)
[2021-06-18] MEDS ORDERED: WARFARIN SOD 1 MG TAB PO SCH (16:00)
--- NOTE | 2021-06-18 16:17 | Hospitalist Progress Note ---
Date of Service June 18, 2021 Assessment & Plan (1) Septic joint of right knee joint: Plan: Septic arthritis: Bacteremia Per admitting service notes with addendum: Patient is 75-year-old female with history of chronic atrial fibrillation on Coumadin, SSS s/p pacemaker, CAD s/p PCI to RCA in 1998, DM II, HTN, dyslipidemia, CKD III, h/o Right TKA presented to [facility] as transfer from [facility] ER for right knee pain and edema and concern for right knee infection, fever. H istory RLE cellulitis treated 2 weeks ago with improvement. [facility] records: T: 38.1C, BP stable, Pulse 113-140. WBC of 13, Hgb 12.9, lactate and procalcitonin were WNL. CRP elevated at 15. Right knee x-ray obtained today at [facility]: No acute fracture, no acute hardware abnormality. At [facility] ER today ortho had aspirated right knee. Synovial fluid from today's aspiration: synovial fluid: Fluid clarity: Turbid, neutrophil %: 80% (0-25%), total nucleated cell count: 163,160 (0-180 cells/uL), RBC: 80,000 (<2000 cells/uL). Blood cultures were drawn today at [facility]. Follow these cultures. Patient given Zosyn, vancomycin, 1L NSS at [facility] prior to transfer Continue Zosyn, vancomycin IVF Requested to have xray images from [facility] to [facility] Ortho consult NPO midnight CBC, BMP in am 06/18/2021 Synovial fluid culture taken at [facility]: Positive for E. coli Blood cultures taken at [facility]: Gram-negative bacilli Urine culture " : E coli, Klebsiella Status post I&D 06/15/2021 Drainage culture: E coli IV Zosyn Day #5--> Levaquin + Ceftri IV consulted [facility] infectious disease Coumadin resumed May weight-bear as tolerated PT OT eval's Possible R sided Pneumonia sputum culture: Stenotrophomonas continue Levaquin Positive mild dyspnea Chest x-ray: 1. Cardiomegaly without overt pulmonary edema. 2. Mild right lung basilar densities suggest atelectasis versus pneumonitis. continue Zosyn IV (2) Chronic atrial fibrillation: Plan: Chronic atrial fibrillation on chronic Coumadin Atrial fibrillation RVR Patient had A. fib RVR at [facility] ER. Troponin T: WNL. Patient currently asymptomatic. Likely secondary to underlying infection and missed beta janusz medication Resume home metoprolol tartrate IV Lopressor prn INR: 2.9 Will need to optimize prior to surgical procedure Hold Coumadin secondary to surgical procedure. Monitor INR. 4/4 Process Manufacturing Engineer consulted for A. fib with RVR Metoprolol increased to 150mg BID weaned off diltiazem drip Currently p.o. Cardizem also started-- 60mg TID INR 1.8 on coumadin echo ordered to r/o bacterial seeding in the PM lead (3) Diabetes mellitus, type II: Plan: A1c: 8.0 on 05/28/2021 Insulin-dependent Basal bolus insulin per protocol (4) CAD (coronary artery disease): Plan: Status post PCI to RCA 1998 Denies chest pain, shortness of breath Continue rosuvastatin, metoprolol tartrate (5) CKD (chronic kidney disease), stage III: Plan: Acute Renal Failure on CKD 3 Cr: 1.0. Baseline 1.0 crea 1.6 likely from sepsis, dehydration IV fluids Patient improved to 1.4 Monitor renal functions, avoid nephrotoxic agents when possible (6) HTN (hypertension): Plan: Continue metoprolol tartrate (7) Sick sinus syndrome: Plan: S/p pacemaker (8) Dyslipidemia: Plan: Continue rosuvastatin DVT Prophylaxis INR 1.8 Coumadin restarted Full code as per discussion with pt Follows with Vitaliy Mcmillan for routine care plan of care discussed with patient in detail and at length all questions answered she is understanding, agreeable, comfortable with the plan of care Admission and Anticipated Discharge Date Admission Date: June 13, 2021 Subjective ff up for septic arthritis, bacteremia, etc seen resting in bed, comfortable on room air breathing is improving, cough about the same still has discomfort over R knee no abdominal pain, nausea, chest pain, palpitations, dizziness no other symptoms Review of Systems Review of Systems: all noted and negative except for above Physical Exam Physical Exam: General- oriented x 3, not in distress, speaks in sentences with no effort or accessory muscle use Eyes- anicteric Neck- no JVD Lungs- clear breath sounds bilaterally, no rales/wheezes Heart- normal rate,irregularly regular rhythm; no murmurs Abdomen- normal bowel sounds, nondistended, soft, nontender Extremities- no pretibial edema, no calf tenderness R knee: dressing in place, no bleeding/discharge mild edema Neuro- alert, oriented x 3; no gross focal neurologic deficits Skin- warm & dry Results & Data Results & Data ([facility]) Vital Signs (Past 12 Hours) Vital Signs Temp Pulse Pulse Resp BP BP Pulse Ox 06/18/21 15:44 36.5 C 91 H 16 101/67 96 06/18/21 15:16 101 H 06/18/21 11:40 36.6 C 103 H 16 129/67 95 06/18/21 08:00 06/18/21 07:29 37.6 C H 96 H 14 140/92 95 06/18/21 07:06 112 H Pulse Ox 06/18/21 15:44 06/18/21 15:16 06/18/21 11:40 06/18/21 08:00 95 06/18/21 07:29 06/18/21 07:06 all noted and reviewed including below
[2021-06-18] MEDS: ADVANCED PROBIOTIC 1250 MG CAPSULE PO SCH (16:44)
[2021-06-18] MEDS: cefTRIAXone SODIUM 2,000 MG in DEXTROSE 5% 50 ML IV SCH (16:44)
[2021-06-18] MEDS: SENNA 8.6 MG TAB PO SCH (20:05)
[2021-06-18] MEDS: METOPROLOL SUCC 50MG EXT REL TAB PO SCH (20:06)
[2021-06-18] MEDS: GABAPENTIN 100 MG CAP PO SCH (20:07)
[2021-06-19 06:23] LABS: Basophils # (auto) 0.03 K/uL (0-0.2); Basophils % (auto) 0.2 %; Eosinophils # (auto) 0.17 K/uL (0-0.5); Eosinophils % (auto) 1.1 %; Hematocrit (blood only) 29.3 % (37-47); Hemoglobin 9.9 g/dL (12.0-16.0); Immature Granulocytes # (auto) 0.34 K/uL (0.00-0.02); Immature Granulocytes % (auto) 2.2 %; Lymphocytes # (auto) 1.99 K/uL (1.2-3.4); Lymphocytes % (auto) 13.1 %; Mean Corpuscular Hemoglobin 30.1 pg (25-34); Mean Corpuscular Hgb Conc 33.8 g/dL (32-36); Mean Corpuscular Volume 89.1 fL (80-100); Mean Platelet Volume 10.5 fL (7.4-10.4); Monocytes # (auto) 1.82 K/uL (0.11-0.59); Neutrophils # (auto) 10.86 K/uL (1.4-6.5); Neutrophils % (auto) 71.4 %; Platelet Count 191 K/uL (130-400); RDW Standard Deviation 46.1 fL (36.4-46.3); Red Blood Count 3.29 M/uL (4.2-5.4); White Blood Count 15.21 K/uL (4.8-10.8)
[2021-06-19 06:32] LABS: INR 2.1 (0.9-1.1); Prothrombin Time 21.2 Seconds (9.0-12.0)
[2021-06-19 06:43] LABS: BUN Creatinine Ratio 16.6 (10-20); Calcium 8.9 mg/dl (8.5-10.1); Creatinine Clr Calc Pharmacy 39.1 ml/min; Est GFR (African American) 40.7 ml/min; Est GFR (Non-African American) 35.1 ml/min
[2021-06-19] MEDS: METOPROLOL SUCC 50MG EXT REL TAB PO SCH ×2 (08:00→20:59)
[2021-06-19] MEDS: ADVANCED PROBIOTIC 1250 MG CAPSULE PO SCH (08:00)
[2021-06-19] MEDS: DOCUSATE SODIUM 100 MG CAP PO SCH ×2 (08:00→20:58)
[2021-06-19] MEDS: ROSUVASTATIN CALCIUM 10 MG TAB PO SCH (08:01)
[2021-06-19] MEDS: MULTIVITAMIN TAB PO SCH (08:01)
[2021-06-19] MEDS: cefTRIAXone SODIUM 2,000 MG in DEXTROSE 5% 50 ML IV SCH (08:01)
[2021-06-19] MEDS: dilTIAZem HCl 60 MG TAB PO SCH ×3 (08:01→21:00)
[2021-06-19] MEDS: INSULIN ASPART PER UNIT SC SCH ×5 (08:17→21:00)
[2021-06-19] MEDS: INSULIN GLARGINE SOLOSTAR 100 UNITS/ML 3 ML PEN SC SCH ×2 (08:18→21:01)
--- NOTE | 2021-06-19 10:49 | Orthopedic Progress Note ---
Date of Service June 19, 2021 Assessment & Plan (1) Septic joint of right knee joint: Plan: POD #4 s/p Right Knee Open Synovectomy, Irrigation and Debridement, Polyethylene Exchange and Placement Antibiotic Beads -currently on Rocephin and Levofloxacin , ID consult placed. Cultures growing pansensitive E. coli. Patient will likely require at least 6 weeks IV antibiotics and likely oral antibiotics thereafter. Will await ID recommendations. -LUPE wound vac x 7 days -PT- WBAT, ROM as tolerated -DVT prophylaxis: Coumadin resumed -Discharge planning: Patient require inpatient rehab upon discharge. -Follow-up with Dr. Tran's office about 14 days postoperatively for reevaluation and staple removal. Patient can call [phone] for an appointment. Admission and Anticipated Discharge Date Admission Date: June 13, 2021 Subjective POD 4 Pt sleeping upon entering room. Easily awoken. No complaints this AM. States her knee feels better than before. Physical Exam Physical Exam: LUPE dressing intact. Scant drainage on dressing. No erythema noted. Calves soft, NT. NV intact. Toes mobile. Results & Data ([facility]) Vital Signs (Past 12 Hours) Vital Signs Temp Pulse Pulse Resp BP BP Pulse Ox 06/19/21 07:16 36.6 C 112 H 20 131/79 98 06/19/21 03:45 36.4 C L 87 18 127/78 95 06/18/21 23:46 36.4 C L 88 18 110/65 96 06/18/21 23:16 82 Laboratory Results 06/19/21 06/19/21 06/19/21 Range/Units 07:12 05:50 05:50 WBC (4.8-10.8) K/uL RBC (4.2-5.4) M/uL Hgb (12.0-16.0) g/dL Hct (37-47) % MCV (80-100) fL MCH (25-34) pg MCHC (32-36) g/dL RDW Std Deviation (36.4-46.3) fL RDW Coeff of Kavon (11.5-14.5) % Plt Count (130-400) K/uL MPV (7.4-10.4) fL Immature Gran % (Auto) % Neut % (Auto) % Lymph % (Auto) % [place] % (Auto) % Eos % (Auto) % Baso % (Auto) % Neut # (Auto) (1.4-6.5) K/uL Lymph # (Auto) (1.2-3.4) K/uL [place] # (Auto) (0.11-0.59) K/uL Eos # (Auto) (0-0.5) K/uL Baso # (Auto) (0-0.2) K/uL Immature Gran # (Auto) (0.00-0.02) K/uL PT 21.2 H (9.0-12.0) Seconds INR 2.1 H (0.9-1.1) Sodium 136 (136-145) mmol/L Potassium 4.0 (3.5-5.1) mmol/L Chloride 106 (98-107) mmol/L Carbon Dioxide 22 (21-32) mmol/L Anion Gap 8 (3-11) BUN 24 H (6-23) mg/dl Creatinine 1.45 H (0.6-1.2) mg/dl Est Cr Clr Drug Dosing 39.1 ml/min Est GFR ( Amer) 40.7 ml/min Est GFR (Non-Af Amer) 35.1 ml/min BUN/Creatinine Ratio 16.6 (10-20) Glucose 95 (70-99(Fasting)) mg/dl POC Glucose 102 H (70-99) mg/dl Calcium 8.9 (8.5-10.1) mg/dl 06/19/21 06/18/21 06/18/21 Range/Units 05:50 20:34 15:47 WBC 15.21 H (4.8-10.8) K/uL RBC 3.29 L (4.2-5.4) M/uL Hgb 9.9 L (12.0-16.0) g/dL Hct 29.3 L (37-47) % MCV 89.1 (80-100) fL MCH 30.1 (25-34) pg MCHC 33.8 (32-36) g/dL RDW Std Deviation 46.1 (36.4-46.3) fL RDW Coeff of Akvon 14.0 (11.5-14.5) % Plt Count 191 (130-400) K/uL MPV 10.5 H (7.4-10.4) fL Immature Gran % (Auto) 2.2 % Neut % (Auto) 71.4 % Lymph % (Auto) 13.1 % [place] % (Auto) 12.0 % Eos % (Auto) 1.1 % Baso % (Auto) 0.2 % Neut # (Auto) 10.86 H (1.4-6.5) K/uL Lymph # (Auto) 1.99 (1.2-3.4) K/uL [place] # (Auto) 1.82 H (0.11-0.59) K/uL Eos # (Auto) 0.17 (0-0.5) K/uL Baso # (Auto) 0.03 (0-0.2) K/uL Immature Gran # (Auto) 0.34 H (0.00-0.02) K/uL PT (9.0-12.0) Seconds INR (0.9-1.1) Sodium (136-145) mmol/L Potassium (3.5-5.1) mmol/L Chloride (98-107) mmol/L Carbon Dioxide (21-32) mmol/L Anion Gap (3-11) BUN (6-23) mg/dl Creatinine (0.6-1.2) mg/dl Est Cr Clr Drug Dosing ml/min Est GFR ( Amer) ml/min Est GFR (Non-Af Amer) ml/min BUN/Creatinine Ratio (10-20) Glucose (70-99(Fasting)) mg/dl POC Glucose 139 H 167 H (70-99) mg/dl Calcium (8.5-10.1) mg/dl 06/18/21 Range/Units 11:35 WBC (4.8-10.8) K/uL RBC (4.2-5.4) M/uL Hgb (12.0-16.0) g/dL Hct (37-47) % MCV (80-100) fL MCH (25-34) pg MCHC (32-36) g/dL RDW Std Deviation (36.4-46.3) fL RDW Coeff of Kavon (11.5-14.5) % Plt Count (130-400) K/uL MPV (7.4-10.4) fL Immature Gran % (Auto) % Neut % (Auto) % Lymph % (Auto) % [place] % (Auto) % Eos % (Auto) % Baso % (Auto) % Neut # (Auto) (1.4-6.5) K/uL Lymph # (Auto) (1.2-3.4) K/uL [place] # (Auto) (0.11-0.59) K/uL Eos # (Auto) (0-0.5) K/uL Baso # (Auto) (0-0.2) K/uL Immature Gran # (Auto) (0.00-0.02) K/uL PT (9.0-12.0) Seconds INR (0.9-1.1) Sodium (136-145) mmol/L Potassium (3.5-5.1) mmol/L Chloride (98-107) mmol/L Carbon Dioxide (21-32) mmol/L Anion Gap (3-11) BUN (6-23) mg/dl Creatinine (0.6-1.2) mg/dl Est Cr Clr Drug Dosing ml/min Est GFR ( Amer) ml/min Est GFR (Non-Af Amer) ml/min BUN/Creatinine Ratio (10-20) Glucose (70-99(Fasting)) mg/dl POC Glucose 146 H (70-99) mg/dl Calcium (8.5-10.1) mg/dl
[2021-06-19] MEDS: oxyCODONE/ACETAMINOPHEN 5mg/325mg TAB PO PRN ×2 (14:17→21:51)
--- NOTE | 2021-06-19 14:55 | Cardiology Progress Note ---
Date of Service June 19, 2021 Assessment & Plan (1) Septic joint of right knee joint: (2) Preop cardiovascular exam: (3) HTN (hypertension): (4) Atrial fibrillation with RVR: (5) Pacemaker: Plan: Patient with persistently elevated atrial fibrillation rates. Echocardiogram without vegetation EF 50-55% We will continue current dosing of metoprolol succinate 150 mg twice per day plus diltiazem as heart rates are trending towards better control. Rates being in part being driven by infection and pain Extended duration antibiotic therapies will be warranted given current infection and indwelling pacemaker in place Admission and Anticipated Discharge Date Admission Date: June 13, 2021 Subjective Patient seen and examined, denies any acute cardiac complaints. Heart rate still trending somewhat elevated but towards better control Review of Systems Review of Systems: All systems reviewed & are unremarkable except as noted in Subjective Physical Exam Constitutional: WD/WN, vitals as above well developed, well nourished and + obese; no acute distress Respiratory: normal respiratory effort, lungs clear to auscultation no respiratory distress, no labored breathing and no retractions Auscultation: + diminished lung sounds; breath sounds present, no crackles, no rales, no rhonchi and no wheezes Cardiovascular: Rate/Rhythm: + tachycardic and + irregularly irregular Heart Sounds: normal S1 and normal S2; no murmur Vessels: no JVD and no carotid bruit Extremities: + edema (trace b/l ankle edema; ) Chest (Breasts): Chest: + pacemaker (No tenderness or inflammation) Gastrointestinal (Abdomen): normal bowel sounds, soft, nontender, no hepatosplenomegaly Musculoskeletal: Knee: knee normal to inspection (Right knee edema) Neurologic: PERRL, EOMI, accommodation nl, no face palsy, no dysarthria CN's II-XI intact bilaterally and moves all extremities; no focal motor deficits Psychiatric: A+Ox3, euthymic affect Results & Data ([facility]) Vital Signs (Past 12 Hours) Vital Signs Temp Pulse Resp BP BP Pulse Ox 06/19/21 11:34 36.7 C 109 H 19 146/84 H 96 06/19/21 07:16 36.6 C 112 H 20 131/79 98 06/19/21 03:45 36.4 C L 87 18 127/78 95 Laboratory Results Laboratory Results - last 24 hr 06/18/21 06/18/21 06/19/21 15:47 20:34 05:50 WBC 15.21 H RBC 3.29 L Hgb 9.9 L Hct 29.3 L MCV 89.1 MCH 30.1 MCHC 33.8 RDW Std Deviation 46.1 RDW Coeff of Kavon 14.0 Plt Count 191 MPV 10.5 H Immature Gran % (Auto) 2.2 Neut % (Auto) 71.4 Lymph % (Auto) 13.1 Meagher % (Auto) 12.0 Eos % (Auto) 1.1 Baso % (Auto) 0.2 Neut # (Auto) 10.86 H Lymph # (Auto) 1.99 Meagher # (Auto) 1.82 H Eos # (Auto) 0.17 Baso # (Auto) 0.03 Immature Gran # (Auto) 0.34 H PT INR Sodium Potassium Chloride Carbon Dioxide Anion Gap BUN Creatinine Est Cr Clr Drug Dosing Est GFR ( Amer) Est GFR (Non-Af Amer) BUN/Creatinine Ratio Glucose POC Glucose 167 H 139 H Calcium 06/19/21 06/19/21 06/19/21 05:50 05:50 07:12 WBC RBC Hgb Hct MCV MCH MCHC RDW Std Deviation RDW Coeff of Kavon Plt Count MPV Immature Gran % (Auto) Neut % (Auto) Lymph % (Auto) Meagher % (Auto) Eos % (Auto) Baso % (Auto) Neut # (Auto) Lymph # (Auto) Meagher # (Auto) Eos # (Auto) Baso # (Auto) Immature Gran # (Auto) PT 21.2 H INR 2.1 H Sodium 136 Potassium 4.0 Chloride 106 Carbon Dioxide 22 Anion Gap 8 BUN 24 H Creatinine 1.45 H Est Cr Clr Drug Dosing 39.1 Est GFR ( Amer) 40.7 Est GFR (Non-Af Amer) 35.1 BUN/Creatinine Ratio 16.6 Glucose 95 POC Glucose 102 H Calcium 8.9 06/19/21 11:30 WBC RBC Hgb Hct MCV MCH MCHC RDW Std Deviation RDW Coeff of Kavon Plt Count MPV Immature Gran % (Auto) Neut % (Auto) Lymph % (Auto) Meagher % (Auto) Eos % (Auto) Baso % (Auto) Neut # (Auto) Lymph # (Auto) Meagher # (Auto) Eos # (Auto) Baso # (Auto) Immature Gran # (Auto) PT INR Sodium Potassium Chloride Carbon Dioxide Anion Gap BUN Creatinine Est Cr Clr Drug Dosing Est GFR ( Amer) Est GFR (Non-Af Amer) BUN/Creatinine Ratio Glucose POC Glucose 137 H Calcium Medications Administered Current Medications Acetaminophen (Acetaminophen 325 Mg Tab) 650 mg PO Q4H PRN PRN Reason: Pain or Fever Stop: 07/13/21 13:26 Last Admin: 06/14/21 09:03 Dose: 650 mg Documented by: Alprazolam (Alprazolam 0.25 Mg Tablet) 0.25 mg PO HS PRN PRN Reason: Anxiety Stop: 07/13/21 17:36 Last Admin: 06/15/21 08:52 Dose: 0.25 mg Documented by: Bisacodyl (Bisacodyl 10 Mg Supp) 10 mg NV DAILY PRN PRN Reason: Constipation Stop: 07/15/21 19:23 Dextrose (Dextrose 50% 50 Ml Syringe) 25 - 50 ml IV UD PRN; Protocol PRN Reason: Hypoglycemia Protocol Stop: 07/13/21 14:18 Diltiazem HCl (Diltiazem Hcl 60 Mg Tab) 60 mg PO TID NUPUR Stop: 07/17/21 20:59 Last Admin: 06/19/21 13:27 Dose: 60 mg Documented by: Docusate Sodium (Docusate Sodium 100 Mg Cap) 100 mg PO BID NUPUR Stop: 07/15/21 20:59 Last Admin: 06/19/21 08:00 Dose: 100 mg Documented by: Gabapentin (Gabapentin 100 Mg Cap) 100 mg PO HS NUPUR Stop: 07/13/21 20:59 Last Admin: 06/18/21 20:07 Dose: 100 mg Documented by: Glucagon (Glucagon For Inj 1 Mg Vial) 1 mg SQ UD PRN; Protocol PRN Reason: Hypoglycemia Protocol Stop: 07/13/21 14:18 Glucose (Glucose 10 Tabs/Tube) 4 - 8 tabs PO UD PRN; Protocol PRN Reason: Hypoglycemia Protocol Stop: 07/13/21 14:18 Glucose (Glucose 40% Gel 15 Gm Tube) 15 - 30 gm PO UD PRN; Protocol PRN Reason: Hypoglycemia Protocol Stop: 07/13/21 14:18 Ceftriaxone Sodium 2,000 mg/ (Dextrose) 70 mls @ 100 mls/hr IV DAILY NUPUR; Protocol Stop: 06/28/21 15:44 Last Infusion: 06/19/21 09:00 Dose: Infused Documented by: Insulin Aspart (Insulin Aspart Per Unit) 0 units SC ACHS [facility] Stop: 07/13/21 16:29 Last Admin: 06/19/21 12:14 Dose: 2 units Documented by: Insulin Glargine (Insulin Glargine Solostar 100 Units/Ml 3 Ml Pen) 0 - 40 units SC BID [facility] Stop: 07/13/21 20:59 Last Admin: 06/19/21 08:18 Dose: 20 units Documented by: Lactobacillus Acidophilus (Advanced Probiotic 1250 Mg Capsule) 2 cap PO DAILY [facility] Stop: 07/18/21 15:44 Last Admin: 06/19/21 08:00 Dose: 2 cap Documented by: Levofloxacin (Levofloxacin 750 Mg Tab) 750 mg PO Q48H [facility] Stop: 06/25/21 10:59 Last Admin: 06/18/21 12:17 Dose: 750 mg Documented by: Magnesium Hydroxide (Magnesium Hydroxide Susp 30 Ml Udc) 30 ml PO Q12H PRN PRN Reason: Constipation Stop: 07/13/21 13:26 Last Admin: 06/14/21 20:22 Dose: 30 ml Documented by: Magnesium Hydroxide (Magnesium Hydroxide Susp 30 Ml Udc) 30 ml PO Q6H PRN PRN Reason: Constipation Stop: 07/15/21 19:23 Metoclopramide HCl (Metoclopramide Hcl Inj 5 Mg/Ml 2 Ml Vial) 10 mg IV Q6H PRN PRN Reason: Nausea And Vomiting Stop: 07/15/21 19:23 Metoprolol Succinate (Metoprolol Succ 50mg Ext Rel Tab) 150 mg PO BID [facility] Stop: 07/18/21 20:59 Last Admin: 06/19/21 08:00 Dose: 150 mg Documented by: Metoprolol Tartrate (Metoprolol Tartrate 1 Mg/Ml Vial) 5 mg IV Q6 PRN; Protocol PRN Reason: Tachycardia Stop: 07/13/21 17:59 Last Admin: 06/17/21 10:33 Dose: 5 mg Documented by: Miscellaneous (Carbohydrates For Hypoglycemia ) 15 - 30 gm PO UD PRN PRN Reason: Hypoglycemia Protocol Stop: 07/13/21 14:18 Morphine Sulfate (Morphine Sulfate 2 Mg/Ml Carp) 2 mg IV Q3H PRN PRN Reason: Severe Pain Stop: 06/27/21 14:39 Last Admin: 06/18/21 08:30 Dose: 2 mg Documented by: Multivitamins (Multivitamin Tab) 1 tab PO QAM [facility] Stop: 07/16/21 08:59 Last Admin: 06/19/21 08:01 Dose: 1 tab Documented by: Ondansetron HCl (Ondansetron Inj 2 Mg/Ml 2 Ml Vial) 4 mg IV Q6H PRN PRN Reason: Nausea Stop: 07/13/21 13:26 Last Admin: 06/15/21 19:51 Dose: 4 mg Documented by: Oxycodone/Acetaminophen (Oxycodone/Acetaminophen 5mg/325mg Tab) 1 tab PO Q4H PRN PRN Reason: moderate-severe pain Stop: 07/02/21 10:13 Last Admin: 06/19/21 14:17 Dose: 1 tab Documented by: Polyethylene Glycol (Polyethylene (Miralax) 17 Gm Pack) 17 gm PO DAILY PRN PRN Reason: Constipation Stop: 07/13/21 13:26 Last Admin: 06/18/21 08:30 Dose: 17 gm Documented by: Rosuvastatin Calcium (Rosuvastatin Calcium 10 Mg Tab) 10 mg PO DAILY [facility] Stop: 07/14/21 08:59 Last Admin: 06/19/21 08:01 Dose: 10 mg Documented by: Sennosides (Senna 8.6 Mg Tab) 17.2 mg PO HS [facility] Stop: 07/15/21 20:59 Last Admin: 06/18/21 20:05 Dose: 17.2 mg Documented by: Warfarin Sodium (Warfarin Sod 2 Mg Tab) 2 mg PO SuTuWeThFrSa@1600 [facility] Stop: 07/16/21 15:59 Last Admin: 06/17/21 15:59 Dose: 2 mg Documented by: Warfarin Sodium (Warfarin Sod 1 Mg Tab) 1 mg PO Mo@1600 [facility] Stop: 07/18/21 15:59 Last Admin: 06/18/21 20:07 Dose: 1 mg Documented by:
[2021-06-19] MEDS: WARFARIN SOD 2 MG TAB PO SCH (17:28)
--- NOTE | 2021-06-19 18:11 | Hospitalist Progress Note ---
Date of Service June 19, 2021 Assessment & Plan (1) Septic joint of right knee joint: Plan: Septic arthritis: Bacteremia Per admitting service notes with addendum: Patient is 75-year-old female with history of chronic atrial fibrillation on Coumadin, SSS s/p pacemaker, CAD s/p PCI to RCA in 1998, DM II, HTN, dyslipidemia, CKD III, h/o Right TKA presented to [facility] as transfer from [facility] ER for right knee pain and edema and concern for right knee infection, fever. H istory RLE cellulitis treated 2 weeks ago with improvement. [facility] records: T: 38.1C, BP stable, Pulse 113-140. WBC of 13, Hgb 12.9, lactate and procalcitonin were WNL. CRP elevated at 15. Right knee x-ray obtained today at [facility]: No acute fracture, no acute hardware abnormality. At [facility] ER today ortho had aspirated right knee. Synovial fluid from today's aspiration: synovial fluid: Fluid clarity: Turbid, neutrophil %: 80% (0-25%), total nucleated cell count: 163,160 (0-180 cells/uL), RBC: 80,000 (<2000 cells/uL). Blood cultures were drawn today at [facility]. Follow these cultures. Patient given Zosyn, vancomycin, 1L NSS at [facility] prior to transfer Continue Zosyn, vancomycin IVF Requested to have xray images from [facility] to [facility] Ortho consult NPO midnight CBC, BMP in am 06/19/21 Synovial fluid culture taken at [facility]: Positive for E. coli Blood cultures taken at [facility]: E coli Urine culture " : E coli, Klebsiella Status post I&D 06/15/2021 Drainage culture: E coli IV Zosyn Day #5--> Levaquin + Ceftri IV Day 2 consulted [facility] infectious disease, awaiting recommendations Coumadin resumed, INR 2.1 May weight-bear as tolerated PT OT eval's: will need acute Rehab Right Sided Pneumonia Chest x-ray: 1. Cardiomegaly without overt pulmonary edema. 2. Mild right lung basilar densities suggest atelectasis versus pneumonitis. sputum culture: Stenotrophomonas improving, off oxygen continue Levaquin Day 2 (2) Chronic atrial fibrillation: Plan: Chronic atrial fibrillation on chronic Coumadin Atrial fibrillation RVR Patient had A. fib RVR at [facility] ER. Troponin T: WNL. Patient currently asymptomatic. Likely secondary to underlying infection and missed beta janusz medication Resume home metoprolol tartrate IV Lopressor prn INR: 2.9 Will need to optimize prior to surgical procedure Hold Coumadin secondary to surgical procedure. Monitor INR. 4/5 [employer] consulted for A. fib with RVR Metoprolol increased to 150mg BID weaned off diltiazem drip Currently p.o. Cardizem also started-- 60mg TID HR now controlled INR 2.1 on coumadin echo ordered to r/o bacterial seeding in the PM lead (3) Diabetes mellitus, type II: Plan: A1c: 8.0 on 05/28/2021 Insulin-dependent Basal bolus insulin per protocol (4) CAD (coronary artery disease): Plan: Status post PCI to RCA 1998 Denies chest pain, shortness of breath Continue rosuvastatin, metoprolol tartrate (5) CKD (chronic kidney disease), stage III: Plan: Acute Renal Failure on CKD 3 Cr: 1.0. Baseline 1.0 crea 1.6 likely from sepsis, dehydration IV fluids crea improved to 1.4 Monitor renal functions, avoid nephrotoxic agents when possible (6) HTN (hypertension): Plan: Continue metoprolol tartrate (7) Sick sinus syndrome: Plan: S/p pacemaker (8) Dyslipidemia: Plan: Continue rosuvastatin DVT Prophylaxis INR 2.1 Coumadin Full code as per discussion with pt Follows with Vitaliy Mcmillan for routine care Disposition will need to transition to Acute Rehab plan of care discussed with patient in detail and at length all questions answered she is understanding, agreeable, comfortable with the plan of care Admission and Anticipated Discharge Date Admission Date: June 13, 2021 Subjective ff up for septic arthritis, bacteremia, PNA, etc seen resting in bed, comfortable sitting up in bed, in good spirits, brighter states she feels improved today cough improving no abdominal pain minimal knee pain no fever/chills no chest pain, dyspnea, palpitations, dizziness no other symptoms Review of Systems Review of Systems: all noted and negative except for above Physical Exam Physical Exam: General- oriented x 3, not in distress, speaks in sentences with no effort or accessory muscle use Eyes- anicteric Neck- no JVD Lungs- clear BS bilaterally, no rales/wheezes Heart- normal rate, regular rhythm; no murmurs Abdomen- normal bowel sounds, nondistended, soft, nontender Extremities- no pretibial edema, no calf tenderness R knee: dressing in place, no bleeding/discharge mild edema, no erythema, (+) tenderness Neuro- alert, oriented x 3; no gross focal neurologic deficits Skin- warm & dry Results & Data Results & Data ([facility]) Vital Signs (Past 12 Hours) Vital Signs Temp Pulse Resp BP Pulse Ox 06/19/21 16:28 36.4 C L 91 H 18 133/78 95 06/19/21 11:34 36.7 C 109 H 19 146/84 H 96 06/19/21 07:16 36.6 C 112 H 20 131/79 98 all noted and reviewed including below
[2021-06-19] MEDS: SENNA 8.6 MG TAB PO SCH (20:58)
[2021-06-19] MEDS: GABAPENTIN 100 MG CAP PO SCH (20:59)
[2021-06-20 07:22] LABS: BUN Creatinine Ratio 15.9 (10-20); Calcium 8.7 mg/dl (8.5-10.1); Creatinine Clr Calc Pharmacy 41.6 ml/min; Est GFR (African American) 43.2 ml/min; Est GFR (Non-African American) 37.3 ml/min; Potassium 3.7 mmol/L (3.5-5.1)
[2021-06-20] MEDS: METOPROLOL SUCC 50MG EXT REL TAB PO SCH ×2 (08:54→21:46)
[2021-06-20] MEDS: ADVANCED PROBIOTIC 1250 MG CAPSULE PO SCH (08:55)
[2021-06-20] MEDS: ROSUVASTATIN CALCIUM 10 MG TAB PO SCH (08:55)
[2021-06-20] MEDS: dilTIAZem HCl 60 MG TAB PO SCH ×3 (08:55→21:36)
[2021-06-20] MEDS: DOCUSATE SODIUM 100 MG CAP PO SCH ×2 (08:55→21:34)
[2021-06-20] MEDS: MULTIVITAMIN TAB PO SCH (08:55)
[2021-06-20] MEDS: oxyCODONE/ACETAMINOPHEN 5mg/325mg TAB PO PRN ×3 (09:02→21:38)
[2021-06-20] MEDS: cefTRIAXone SODIUM 2,000 MG in DEXTROSE 5% 50 ML IV SCH (09:07)
[2021-06-20] MEDS: INSULIN ASPART PER UNIT SC SCH ×4 (09:09→21:35)
[2021-06-20] MEDS: INSULIN GLARGINE SOLOSTAR 100 UNITS/ML 3 ML PEN SC SCH ×2 (09:10→21:37)
[2021-06-20 09:52] LABS: INR 2.2 (0.9-1.1); Prothrombin Time 22.3 Seconds (9.0-12.0)
[2021-06-20] MEDS: levoFLOXacin 750 MG TAB PO SCH (11:03)
[2021-06-20] MEDS: POLYETHYLENE (MIRALAX) 17 GM PACK PO SCH (13:24)
--- NOTE | 2021-06-20 14:48 | Cardiology Progress Note ---
Date of Service June 20, 2021 Assessment & Plan (1) Septic joint of right knee joint: (2) Preop cardiovascular exam: (3) HTN (hypertension): (4) Atrial fibrillation with RVR: (5) Pacemaker: Plan: Heart rate trending towards better control. Continue current therapies Admission and Anticipated Discharge Date Admission Date: June 13, 2021 Subjective Patient seen, telemetry and chart reviewed. No complaints still mostly at bedrest. Heart rates and blood pressure trending towards better control. No worsening shortness of breath or cough Results & Data ([facility]) Vital Signs (Past 12 Hours) Vital Signs Temp Pulse Resp BP BP Pulse Ox 06/20/21 12:02 36.9 C 78 19 106/56 L 95 06/20/21 07:27 37.0 C 86 18 132/85 98 06/20/21 03:51 36.8 C 77 17 133/87 97 Laboratory Results Laboratory Results - last 24 hr 06/19/21 06/19/21 06/20/21 16:23 19:52 06:18 PT INR Sodium 136 Potassium 3.7 Chloride 106 Carbon Dioxide 23 Anion Gap 7 BUN 22 Creatinine 1.38 H Est Cr Clr Drug Dosing 41.6 Est GFR ( Amer) 43.2 Est GFR (Non-Af Amer) 37.3 BUN/Creatinine Ratio 15.9 Glucose 95 POC Glucose 175 H 196 H Calcium 8.7 06/20/21 06/20/21 06/20/21 06:31 07:21 11:33 PT 22.3 H INR 2.2 H Sodium Potassium Chloride Carbon Dioxide Anion Gap BUN Creatinine Est Cr Clr Drug Dosing Est GFR ( Amer) Est GFR (Non-Af Amer) BUN/Creatinine Ratio Glucose POC Glucose 113 H 173 H Calcium
--- NOTE | 2021-06-20 17:05 | Hospitalist Progress Note ---
Date of Service June 20, 2021 Assessment & Plan (1) Septic joint of right knee joint: Plan: Patient is 75-year-old female with history of chronic atrial fibrillation on Coumadin, SSS s/p pacemaker, CAD s/p PCI to RCA in 1998, DM II, HTN, dyslipidemia, CKD III, h/o Right TKA presented to [facility] as transfer from [facility] ER for right knee pain and edema and concern for right knee infection, fever. History RLE cellulitis treated 2 weeks ago with improvement. [facility] records: T: 38.1C, BP stable, Pulse 113-140. WBC of 13, Hgb 12.9, lactate and procalcitonin were WNL. CRP elevated at 15. Right knee x-ray obtained today at [facility]: No acute fracture, no acute hardware abnormality. At [facility] ER today ortho had aspirated right knee. Synovial fluid from today's aspiration: synovial fluid: Fluid clarity: Turbid, neutrophil %: 80% (0-25%), total nucleated cell count: 163,160 (0-180 cells/uL), RBC: 80,000 (<2000 cells/uL). E.Coli Septic arthritis/Prosthetic Joint Infection: E.Coli Bacteremia UTI-POA -Blood cultures at [facility] growing E.Coli -Synovial fluid culture at [facility] growing E.coli -Urine Culture growing E.Coli, Klebsiella -S/P I&D ON 06/15/2021 -Patient Received Zosyn, vancomycin IV Zosyn Day #5--> Levaquin + Ceftriaxone IV Day #3 Consulted [facility] infectious disease Will need 6 weeks of IV Ceftriaxone Will repeat Blood Cultures. If bacteremia persists, may need CORDELL/Pacemaker removal Appreciate Orthopedics Input Will need Prolonged Bactrim treatment for Suppression if DAIR suspected. Will need follow up with ID upon discharge Weight-bear as tolerated PT OT eval: Needs acute Rehab Right Sided Pneumonia Chest x-ray:Cardiomegaly without overt pulmonary edema. Mild right lung basilar densities suggest atelectasis versus pneumonitis. -sputum culture: Stenotrophomonas On Levaquin Day 3 (2) Chronic atrial fibrillation: Plan: Chronic atrial fibrillation on chronic Coumadin Atrial fibrillation RVR Weaned off of diltiazem drip Continue metoprolol 150mg BID, diltiazem 60 mg 3 times daily IV Lopressor PRN INR: 2.2 Appreciate Cardiology input Continue Coumadin (3) Diabetes mellitus, type II: Plan: A1c: 8.0 on 05/28/2021 Insulin-dependent Basal bolus insulin per protocol (4) CAD (coronary artery disease): Plan: S/P PCI to RCA 1998 Continue rosuvastatin, metoprolol tartrate (5) CKD (chronic kidney disease), stage III: Plan: ANNEL on CKD III Baseline 1.0 Cr: 1.38 Received IV fluids Monitor renal functions Avoid nephrotoxic agents as able (6) HTN (hypertension): Plan: Continue metoprolol tartrate, Cardizem (7) Sick sinus syndrome: Plan: S/p pacemaker (8) Dyslipidemia: Plan: Continue rosuvastatin DVT Px Coumadin Code Status Full code Follows with Vitaliy Mcmillan for routine care Disposition Acute Rehab as able Admission and Anticipated Discharge Date Admission Date: June 13, 2021 Subjective Patient is seen and examined at bedside States having minimal cough Also reports right leg pain which is better No new complaints Denies any chest pain, shortness of breath, dizziness, nausea, abdominal pain Review of Systems Review of Systems: All systems reviewed & are unremarkable except as noted in Subjective Physical Exam Physical Exam: Physical Exam: Vitals signs as noted above General Appearance:Obese, no apparent distress Head: normocephalic, Atraumatic Eyes: normal inspection, EOMI Neck: supple, Trachea midline Respiratory/Chest: Normal breath sounds, CTA, No accessory muscle use Cardiovascular: Irregularly irregular, No murmur Abdomen/GI:Soft, Non tender, Bowel sounds present Extremities/Musculoskeletal:normal inspection, R knee dressing, 1+ B/L LE edema Neurologic/Psych:AAOX3, grossly no focal neurological deficits Skin: normal color, warm Results & Data Results & Data ([facility]) Vital Signs (Past 12 Hours) Vital Signs Temp Pulse Resp BP BP Pulse Ox 06/20/21 16:16 37.0 C 79 19 136/63 96 06/20/21 12:02 36.9 C 78 19 106/56 L 95 06/20/21 07:27 37.0 C 86 18 132/85 98 Laboratory Results [facility] 06/20/21 06:18 Sodium 136 Potassium 3.7 Chloride 106 Carbon Dioxide 23 BUN 22 Creatinine 1.38 H Glucose 95 Calcium 8.7
[2021-06-20] MEDS: WARFARIN SOD 2 MG TAB PO SCH (17:42)
[2021-06-20] MEDS: GABAPENTIN 100 MG CAP PO SCH (20:38)
[2021-06-20] MEDS: SENNA 8.6 MG TAB PO SCH (21:35)
[2021-06-21 07:05] LABS: BUN Creatinine Ratio 15.6 (10-20); Calcium 8.7 mg/dl (8.5-10.1); Creatinine Clr Calc Pharmacy 44.3 ml/min; Est GFR (African American) 47.4 ml/min; Est GFR (Non-African American) 40.9 ml/min; Potassium 3.5 mmol/L (3.5-5.1)
[2021-06-21 07:07] LABS: Hematocrit (blood only) 28.3 % (37-47); Hemoglobin 9.5 g/dL (12.0-16.0); Mean Corpuscular Hemoglobin 29.7 pg (25-34); Mean Corpuscular Hgb Conc 33.6 g/dL (32-36); Mean Corpuscular Volume 88.4 fL (80-100); Mean Platelet Volume 9.6 fL (7.4-10.4); Platelet Count 316 K/uL (130-400); RDW Coefficient of Variation 14.2 % (11.5-14.5); RDW Standard Deviation 46.5 fL (36.4-46.3); White Blood Count 12.71 K/uL (4.8-10.8)
[2021-06-21 07:16] LABS: INR 2.9 (0.9-1.1); Prothrombin Time 28.7 Seconds (9.0-12.0)
[2021-06-21] MEDS: INSULIN ASPART PER UNIT SC SCH ×4 (08:45→21:00)
[2021-06-21] MEDS: POLYETHYLENE (MIRALAX) 17 GM PACK PO SCH (08:48)
[2021-06-21] MEDS: DOCUSATE SODIUM 100 MG CAP PO SCH ×2 (08:48→20:55)
[2021-06-21] MEDS: MULTIVITAMIN TAB PO SCH (08:49)
[2021-06-21] MEDS: ROSUVASTATIN CALCIUM 10 MG TAB PO SCH (08:49)
[2021-06-21] MEDS: dilTIAZem HCl 60 MG TAB PO SCH ×3 (08:50→20:53)
[2021-06-21] MEDS: METOPROLOL SUCC 50MG EXT REL TAB PO SCH ×2 (08:50→20:54)
[2021-06-21] MEDS: ADVANCED PROBIOTIC 1250 MG CAPSULE PO SCH (08:50)
[2021-06-21] MEDS: INSULIN GLARGINE SOLOSTAR 100 UNITS/ML 3 ML PEN SC SCH ×2 (08:50→21:00)
[2021-06-21] MEDS: cefTRIAXone SODIUM 2,000 MG in DEXTROSE 5% 50 ML IV SCH (08:59)
[2021-06-21] MEDS: oxyCODONE/ACETAMINOPHEN 5mg/325mg TAB PO PRN ×3 (08:59→20:52)
--- NOTE | 2021-06-21 15:22 | Cardiology Progress Note ---
Date of Service June 21, 2021 Assessment & Plan (1) Septic joint of right knee joint: (2) Preop cardiovascular exam: (3) HTN (hypertension): (4) Atrial fibrillation with RVR: (5) Pacemaker: Plan: Patient clinically appears improved today but heart rate still elevated. Blood cultures pending to exclude persistent bacteremia with patient with indwelling pacemaker in place Continue metoprolol succinate 20 mg twice per day if heart rates begin to lower we will decrease diltiazem dose We will follow blood cultures. Echocardiogram without overt vegetation or infection Admission and Anticipated Discharge Date Admission Date: June 13, 2021 Subjective Patient seen and examined, chart, medications, telemetry reviewed. Clinically appears better today no chest pains or shortness of breath. Heart rate still elevated when reviewed on telemetry. No fevers or chills. Review of Systems Review of Systems: All systems reviewed & are unremarkable except as noted in Subjective Physical Exam Constitutional: WD/WN, vitals as above well developed, well nourished and + obese; no acute distress ENMT: external ear and nose normal, oropharynx normal Neck: trachea midline, no thyromegaly Respiratory: normal respiratory effort, lungs clear to auscultation no respiratory distress, no labored breathing and no retractions Auscultation: + diminished lung sounds; breath sounds present, no crackles, no rales, no rhonchi and no wheezes Cardiovascular: Rate/Rhythm: + tachycardic and + irregularly irregular Heart Sounds: normal S1 and normal S2; no murmur Vessels: no JVD and no carotid bruit Extremities: + edema (trace b/l ankle edema; ) Chest (Breasts): Chest: + pacemaker (No tenderness or inflammation) Gastrointestinal (Abdomen): normal bowel sounds, soft, nontender, no hepatosplenomegaly Musculoskeletal: Knee: knee normal to inspection (Right knee edema) Neurologic: PERRL, EOMI, accommodation nl, no face palsy, no dysarthria CN's II-XI intact bilaterally and moves all extremities; no focal motor deficits Psychiatric: A+Ox3, euthymic affect Results & Data ([facility]) Vital Signs (Past 12 Hours) Vital Signs Temp Pulse Pulse Resp BP Pulse Ox 06/21/21 15:11 89 06/21/21 11:30 36.8 C 72 18 132/61 95 06/21/21 10:44 96 H 06/21/21 08:00 36.9 C 66 18 124/60 96 06/21/21 03:56 36.7 C 66 16 125/69 100 Laboratory Results Laboratory Results - last 24 hr 06/20/21 06/20/21 06/21/21 16:29 20:55 06:23 WBC RBC Hgb Hct MCV MCH MCHC RDW Std Deviation RDW Coeff of Kavon Plt Count MPV PT 28.7 H INR 2.9 H Sodium Potassium Chloride Carbon Dioxide Anion Gap BUN Creatinine Est Cr Clr Drug Dosing Est GFR ( Amer) Est GFR (Non-Af Amer) BUN/Creatinine Ratio Glucose POC Glucose 145 H 166 H Calcium 06/21/21 06/21/21 06/21/21 06:23 06:23 07:29 WBC 12.71 H RBC 3.20 L Hgb 9.5 L Hct 28.3 L MCV 88.4 MCH 29.7 MCHC 33.6 RDW Std Deviation 46.5 H RDW Coeff of Kavon 14.2 Plt Count 316 MPV 9.6 PT INR Sodium 138 Potassium 3.5 Chloride 108 H Carbon Dioxide 22 Anion Gap 8 BUN 20 Creatinine 1.28 H Est Cr Clr Drug Dosing 44.3 Est GFR ( Amer) 47.4 Est GFR (Non-Af Amer) 40.9 BUN/Creatinine Ratio 15.6 Glucose 132 H POC Glucose 144 H Calcium 8.7 06/21/21 11:30 WBC RBC Hgb Hct MCV MCH MCHC RDW Std Deviation RDW Coeff of Kavon Plt Count MPV PT INR Sodium Potassium Chloride Carbon Dioxide Anion Gap BUN Creatinine Est Cr Clr Drug Dosing Est GFR ( Amer) Est GFR (Non-Af Amer) BUN/Creatinine Ratio Glucose POC Glucose 227 H Calcium
--- NOTE | 2021-06-21 16:45 | Hospitalist Progress Note ---
Date of Service June 21, 2021 Assessment & Plan (1) Septic joint of right knee joint: Plan: Patient is 75-year-old female with history of chronic atrial fibrillation on Coumadin, SSS s/p pacemaker, CAD s/p PCI to RCA in 1998, DM II, HTN, dyslipidemia, CKD III, h/o Right TKA presented to [facility] as transfer from [facility] ER for right knee pain and edema and concern for right knee infection, fever. History RLE cellulitis treated 2 weeks ago with improvement. [facility] records: T: 38.1C, BP stable, Pulse 113-140. WBC of 13, Hgb 12.9, lactate and procalcitonin were WNL. CRP elevated at 15. Right knee x-ray obtained today at [facility]: No acute fracture, no acute hardware abnormality. At [facility] ER today ortho had aspirated right knee. Synovial fluid from today's aspiration: synovial fluid: Fluid clarity: Turbid, neutrophil %: 80% (0-25%), total nucleated cell count: 163,160 (0-180 cells/uL), RBC: 80,000 (<2000 cells/uL). E.Coli Septic arthritis/Prosthetic Joint Infection: E.Coli Bacteremia UTI-POA -Blood cultures at [facility] growing E.Coli -Synovial fluid culture at [facility] growing E.coli -Urine Culture growing E.Coli, Klebsiella -S/P I&D ON 06/15/2021 -Patient Received Zosyn, vancomycin IV Zosyn Day #5--> Levaquin + Ceftriaxone IV Day #3 Consulted [facility] infectious disease Will need 6 weeks of IV Ceftriaxone Will repeat Blood Cultures. If bacteremia persists, may need CORDELL/Pacemaker removal Appreciate Orthopedics Input Will need Prolonged Bactrim treatment for Suppression if DAIR suspected. Will need follow up with ID upon discharge Weight-bear as tolerated PT OT eval: Needs acute Rehab Repeat blood cultures pending Will Need PICC line when appropriate Right Sided Pneumonia Chest x-ray:Cardiomegaly without overt pulmonary edema. Mild right lung basilar densities suggest atelectasis versus pneumonitis. -sputum culture: Stenotrophomonas On Levaquin Day 4 (2) Chronic atrial fibrillation: Plan: Chronic atrial fibrillation on chronic Coumadin Atrial fibrillation RVR Weaned off of diltiazem drip Continue metoprolol, diltiazem IV Lopressor PRN INR: 2.9 Appreciate Cardiology input Decrease Coumadin to 1mg today (3) Diabetes mellitus, type II: Plan: A1c: 8.0 on 05/28/2021 Insulin-dependent Basal bolus insulin per protocol (4) CAD (coronary artery disease): Plan: S/P PCI to RCA 1998 Continue rosuvastatin, metoprolol tartrate (5) CKD (chronic kidney disease), stage III: Plan: ANNEL on CKD III Baseline 1.0 Cr: 1.38 Received IV fluids Monitor renal functions Avoid nephrotoxic agents as able (6) HTN (hypertension): Plan: Continue metoprolol tartrate, Cardizem (7) Sick sinus syndrome: Plan: S/p pacemaker (8) Dyslipidemia: Plan: Continue rosuvastatin DVT Px Coumadin Code Status Full code Follows with Vitaliy Mcmillan for routine care Disposition Acute Rehab as able Admission and Anticipated Discharge Date Admission Date: June 13, 2021 Subjective Patient is seen and examined at bedside No new complaints Cough continues to improve Discussed with Cardiology today No significant leg pain today Denies any chest pain, shortness of breath, dizziness, nausea, abdominal pain Review of Systems Review of Systems: All systems reviewed & are unremarkable except as noted in Subjective Physical Exam Physical Exam: Physical Exam: Vitals signs as noted above General Appearance:Obese, no apparent distress Head: normocephalic, Atraumatic Eyes: normal inspection, EOMI Neck: supple, Trachea midline Respiratory/Chest: Normal breath sounds, CTA, No accessory muscle use Cardiovascular: Irregularly irregular, No murmur Abdomen/GI:Soft, Non tender, Bowel sounds present Extremities/Musculoskeletal:normal inspection, R knee dressing, 1+ B/L LE edema Neurologic/Psych:AAOX3, grossly no focal neurological deficits Skin: normal color, warm Results & Data Results & Data ([facility]) Vital Signs (Past 12 Hours) Vital Signs Temp Pulse Pulse Resp BP Pulse Ox 06/21/21 15:11 89 06/21/21 11:30 36.8 C 72 18 132/61 95 06/21/21 10:44 96 H 06/21/21 08:00 36.9 C 66 18 124/60 96 Laboratory Results Short CBC 06/21/21 Range/Units 06:23 WBC 12.71 H (4.8-10.8) K/uL Hgb 9.5 L (12.0-16.0) g/dL Hct 28.3 L (37-47) % Plt Count 316 (130-400) K/uL BMP 06/21/21 06:23 Sodium 138 Potassium 3.5 Chloride 108 H Carbon Dioxide 22 BUN 20 Creatinine 1.28 H Glucose 132 H Calcium 8.7
[2021-06-21] MEDS: WARFARIN SOD 1 MG TAB PO SCH (17:21)
[2021-06-21] MEDS: SENNA 8.6 MG TAB PO SCH (20:45)
[2021-06-21] MEDS: GABAPENTIN 100 MG CAP PO SCH (20:47)
[2021-06-22 07:29] LABS: INR 2.4 (0.9-1.1); Prothrombin Time 24.1 Seconds (9.0-12.0)
[2021-06-22 07:38] LABS: BUN Creatinine Ratio 14.3 (10-20); Calcium 8.9 mg/dl (8.5-10.1); Creatinine Clr Calc Pharmacy 45.3 ml/min; Est GFR (African American) 48.3 ml/min; Est GFR (Non-African American) 41.6 ml/min; Potassium 4.1 mmol/L (3.5-5.1)
[2021-06-22] MEDS: ONDANSETRON INJ 2 MG/ML 2 ML VIAL IV PRN (08:16)
[2021-06-22] MEDS: cefTRIAXone SODIUM 2,000 MG in DEXTROSE 5% 50 ML IV SCH (09:00)
[2021-06-22] MEDS: levoFLOXacin 750 MG TAB PO SCH (10:55)
[2021-06-22] MEDS: dilTIAZem HCl 60 MG TAB PO SCH ×3 (10:55→21:03)
[2021-06-22] MEDS: MULTIVITAMIN TAB PO SCH (10:56)
[2021-06-22] MEDS: ROSUVASTATIN CALCIUM 10 MG TAB PO SCH (10:56)
[2021-06-22] MEDS: ADVANCED PROBIOTIC 1250 MG CAPSULE PO SCH (10:57)
[2021-06-22] MEDS: SENNA 8.6 MG TAB PO SCH (10:57)
[2021-06-22] MEDS: METOPROLOL SUCC 50MG EXT REL TAB PO SCH ×2 (10:59→21:12)
[2021-06-22] MEDS: POLYETHYLENE (MIRALAX) 17 GM PACK PO SCH (10:59)
[2021-06-22] MEDS: INSULIN ASPART PER UNIT SC SCH ×4 (11:03→21:02)
[2021-06-22] MEDS: DOCUSATE SODIUM 100 MG CAP PO SCH (11:20)
--- NOTE | 2021-06-22 11:25 | Cardiology Progress Note ---
Date of Service June 22, 2021 Assessment & Plan (1) Septic joint of right knee joint: (2) Preop cardiovascular exam: (3) HTN (hypertension): (4) Atrial fibrillation with RVR: (5) Pacemaker: Plan: Continue current therapies. Admission and Anticipated Discharge Date Admission Date: June 13, 2021 Subjective Patient seen, chart, medications and telemetry reviewed. Heart rate control trending towards better. Blood cultures without growth on second sampling Results & Data ([facility]) Vital Signs (Past 12 Hours) Vital Signs Temp Pulse Resp BP Pulse Ox 06/22/21 08:13 37.0 C 111 H 18 148/88 H 99 06/22/21 04:14 36.8 C 86 18 153/74 H 95 06/21/21 23:44 36.8 C 84 18 108/59 L 97 Laboratory Results Laboratory Results - last 24 hr 06/21/21 06/21/21 06/21/21 11:30 16:37 20:43 PT INR Sodium Potassium Chloride Carbon Dioxide Anion Gap BUN Creatinine Est Cr Clr Drug Dosing Est GFR ( Amer) Est GFR (Non-Af Amer) BUN/Creatinine Ratio Glucose POC Glucose 227 H 137 H 188 H Calcium 06/22/21 06/22/21 06/22/21 06:39 06:39 07:36 PT 24.1 H INR 2.4 H Sodium 137 Potassium 4.1 Chloride 107 Carbon Dioxide 24 Anion Gap 6 BUN 18 Creatinine 1.26 H Est Cr Clr Drug Dosing 45.3 Est GFR ( Amer) 48.3 Est GFR (Non-Af Amer) 41.6 BUN/Creatinine Ratio 14.3 Glucose 140 H POC Glucose 153 H Calcium 8.9
[2021-06-22] MEDS: INSULIN GLARGINE SOLOSTAR 100 UNITS/ML 3 ML PEN SC SCH ×2 (11:26→21:03)
[2021-06-22] MEDS ORDERED: SENNA 8.6 MG TAB PO PRN (13:48)
[2021-06-22] MEDS ORDERED: DOCUSATE SODIUM 100 MG CAP PO PRN (13:48)
[2021-06-22] MEDS ORDERED: POLYETHYLENE (MIRALAX) 17 GM PACK PO PRN (14:00)
[2021-06-22] MEDS ORDERED: DIGOXIN 0.125 MG TAB PO ONE (14:00)
--- NOTE | 2021-06-22 17:24 | Hospitalist Progress Note ---
Date of Service June 22, 2021 Assessment & Plan (1) Septic joint of right knee joint: Plan: Patient is 75-year-old female with history of chronic atrial fibrillation on Coumadin, SSS s/p pacemaker, CAD s/p PCI to RCA in 1998, DM II, HTN, dyslipidemia, CKD III, h/o Right TKA presented to [facility] as transfer from [facility] ER for right knee pain and edema and concern for right knee infection, fever. History RLE cellulitis treated 2 weeks ago with improvement. [facility] records: T: 38.1C, BP stable, Pulse 113-140. WBC of 13, Hgb 12.9, lactate and procalcitonin were WNL. CRP elevated at 15. Right knee x-ray obtained today at [facility]: No acute fracture, no acute hardware abnormality. At [facility] ER today ortho had aspirated right knee. Synovial fluid from today's aspiration: synovial fluid: Fluid clarity: Turbid, neutrophil %: 80% (0-25%), total nucleated cell count: 163,160 (0-180 cells/uL), RBC: 80,000 (<2000 cells/uL). E.Coli Septic arthritis/Prosthetic Joint Infection: E.Coli Bacteremia UTI-POA -Blood cultures at [facility] growing E.Coli -Synovial fluid culture at [facility] growing E.coli -Urine Culture growing E.Coli, Klebsiella -S/P I&D ON 06/15/2021 -Patient Received Zosyn, vancomycin IV Zosyn Day #5--> Levaquin + Ceftriaxone IV Day #5 Consulted [facility] infectious disease Will need 6 weeks of IV Ceftriaxone If bacteremia persists, may need CORDELL/Pacemaker removal Repeat Blood Cultures: Negative to date Appreciate Orthopedics Input Will need Prolonged Bactrim treatment for Suppression if DAIR suspected. Will need follow up with ID upon discharge Weight-bear as tolerated PT OT eval: Needs acute Rehab Plan to place PICC line likely on Friday if cultures remain negative Right Sided Pneumonia Chest x-ray:Cardiomegaly without overt pulmonary edema. Mild right lung basilar densities suggest atelectasis versus pneumonitis. -sputum culture: Stenotrophomonas On Levaquin Day 5 (2) Chronic atrial fibrillation: Plan: Chronic atrial fibrillation on chronic Coumadin Atrial fibrillation RVR Weaned off of diltiazem drip Continue metoprolol, diltiazem IV Lopressor PRN INR: 2.4 Appreciate Cardiology input Continue Coumadin (3) Diabetes mellitus, type II: Plan: A1c: 8.0 on 05/28/2021 Insulin-dependent Basal bolus insulin per protocol (4) CAD (coronary artery disease): Plan: S/P PCI to RCA 1998 Continue rosuvastatin, metoprolol tartrate (5) CKD (chronic kidney disease), stage III: Plan: ANNEL on CKD III Baseline 1.0 Cr: 1.38>1.2 Received IV fluids Monitor renal functions Avoid nephrotoxic agents as able (6) HTN (hypertension): Plan: Continue metoprolol tartrate, Cardizem (7) Sick sinus syndrome: Plan: S/p pacemaker (8) Dyslipidemia: Plan: Continue rosuvastatin DVT Px Coumadin Code Status Full code Follows with Vitaliy Mcmillan for routine care Disposition Acute Rehab as able Admission and Anticipated Discharge Date Admission Date: June 13, 2021 Subjective Patient is seen and examined at bedside Still has Cough with occasional expectoration Feels tired and has nausea Denies leg pain, chest pain, shortness of breath, dizziness, abdominal pain Review of Systems Review of Systems: All systems reviewed & are unremarkable except as noted in Subjective Physical Exam Physical Exam: Physical Exam: Vitals signs as noted above General Appearance:Obese, no apparent distress Head: normocephalic, Atraumatic Eyes: normal inspection, EOMI Neck: supple, Trachea midline Respiratory/Chest: Normal breath sounds, CTA, No accessory muscle use Cardiovascular: Irregularly irregular, No murmur Abdomen/GI:Soft, Non tender, Bowel sounds present Extremities/Musculoskeletal:normal inspection, R knee dressing, 1+ B/L LE edema Neurologic/Psych:AAOX3, grossly no focal neurological deficits Skin: normal color, warm Results & Data Results & Data ([facility]) Vital Signs (Past 12 Hours) Vital Signs Temp Pulse Pulse Resp BP Pulse Ox 06/22/21 16:59 36.1 C L 89 19 121/74 96 06/22/21 14:00 90 06/22/21 11:47 36.9 C 99 H 19 131/76 97 06/22/21 08:13 37.0 C 111 H 18 148/88 H 99 06/22/21 08:00 91 H Laboratory Results [facility] 06/22/21 06:39 Sodium 137 Potassium 4.1 Chloride 107 Carbon Dioxide 24 BUN 18 Creatinine 1.26 H Glucose 140 H Calcium 8.9
[2021-06-22] MEDS: WARFARIN SOD 1 MG TAB PO SCH (18:35)
[2021-06-22] MEDS: DIGOXIN 0.125 MG TAB PO SCH (18:35)
--- NOTE | 2021-06-22 18:44 | Orthopedic Progress Note ---
Date of Service June 22, 2021 Assessment & Plan (1) Septic joint of right knee joint: Plan: Infected knee replacement with E. coli. Status post polyexchange irrigation debridement antibiotic beads. Will need 6 weeks of IV antibiotics and may be long-term suppressive antibiotics. Superficial wound VAC gets removed approximately 1 week postop. Will have less pain over time when the antibiotic beads start to resorb. Staple removal in 2 weeks to 3 weeks postop depending on wound healing. Admission and Anticipated Discharge Date Admission Date: June 13, 2021 Subjective No pain at rest Review of Systems Review of Systems: No complaints at this time Physical Exam Physical Exam: Obese right knee with some old ecchymosis and still some moderate swelling and some pain with range of motion. Patient can do a quad set and extend knee but not do a leg lift independently. Results & Data ([facility]) Vital Signs (Past 12 Hours) Vital Signs Temp Pulse Pulse Resp BP Pulse Ox 06/22/21 16:59 36.1 C L 89 19 121/74 96 06/22/21 14:00 90 06/22/21 11:47 36.9 C 99 H 19 131/76 97 06/22/21 08:13 37.0 C 111 H 18 148/88 H 99 06/22/21 08:00 91 H
[2021-06-22] MEDS: ALPRAZolam 0.25 MG TABLET PO PRN (21:03)
[2021-06-22] MEDS: GABAPENTIN 100 MG CAP PO SCH ×2 (21:04→21:15)
[2021-06-23] MEDS: ONDANSETRON INJ 2 MG/ML 2 ML VIAL IV PRN (00:16)
[2021-06-23 06:08] LABS: Hematocrit (blood only) 28.7 % (37-47); Hemoglobin 9.6 g/dL (12.0-16.0); Mean Corpuscular Hemoglobin 29.5 pg (25-34); Mean Corpuscular Hgb Conc 33.4 g/dL (32-36); Mean Corpuscular Volume 88.3 fL (80-100); Platelet Count 398 K/uL (130-400); RDW Coefficient of Variation 14.3 % (11.5-14.5); RDW Standard Deviation 46.2 fL (36.4-46.3); Red Blood Count 3.25 M/uL (4.2-5.4); White Blood Count 13.78 K/uL (4.8-10.8)
[2021-06-23 06:16] LABS: INR 2.4 (0.9-1.1); Prothrombin Time 24.2 Seconds (9.0-12.0)
[2021-06-23 06:31] LABS: BUN Creatinine Ratio 15.3 (10-20); Calcium 8.6 mg/dl (8.5-10.1); Creatinine Clr Calc Pharmacy 58.1 ml/min; Est GFR (African American) 65.4 ml/min; Est GFR (Non-African American) 56.4 ml/min; Magnesium 1.8 mg/dl (1.7-2.4); Potassium 3.7 mmol/L (3.5-5.1)
[2021-06-23] MEDS: INSULIN ASPART PER UNIT SC SCH ×4 (08:30→21:21)
[2021-06-23] MEDS: cefTRIAXone SODIUM 2,000 MG in DEXTROSE 5% 50 ML IV SCH (08:57)
[2021-06-23] MEDS: ADVANCED PROBIOTIC 1250 MG CAPSULE PO SCH (08:58)
[2021-06-23] MEDS: dilTIAZem HCl 60 MG TAB PO SCH ×3 (08:58→21:19)
[2021-06-23] MEDS: MULTIVITAMIN TAB PO SCH (08:59)
[2021-06-23] MEDS: ROSUVASTATIN CALCIUM 10 MG TAB PO SCH (08:59)
[2021-06-23] MEDS: METOPROLOL SUCC 50MG EXT REL TAB PO SCH ×2 (08:59→20:27)
[2021-06-23] MEDS: INSULIN GLARGINE SOLOSTAR 100 UNITS/ML 3 ML PEN SC SCH ×2 (09:57→21:18)
--- NOTE | 2021-06-23 11:14 | Cardiology Progress Note ---
Date of Service June 23, 2021 Assessment & Plan (1) Septic joint of right knee joint: (2) Preop cardiovascular exam: (3) HTN (hypertension): (4) Atrial fibrillation with RVR: (5) Pacemaker: Plan: Continue current therapies. Okay to DC telemetry from a cardiac standpoint Admission and Anticipated Discharge Date Admission Date: June 13, 2021 Subjective Patient seen and examined, chart reviewed. States that she is feeling rather well today. Her main concern is why she was restarted on digoxin. Denies any cardiac complaints. Telemetry reviewed: Atrial fibrillation, rate controlled Review of Systems Review of Systems: All systems reviewed & are unremarkable except as noted in HPI & below Physical Exam Physical Exam: General: Awake, alert and oriented x 3. No acute distress. HEENT: Normocephalic, atraumatic. Pupils equal, round and reactive to light and accommodation. Extraocular muscles are intact. Anicteric sclera. Moist mucous membranes. Neck: No JVD. No bruit. Cardiovascular: irregularly irregular, unable to appreciate murmur, rub or gallop. Pulmonary: Clear to auscultation bilaterally. No rales, rhonchi, or wheezing. Abdomen: Bowel sounds x 4, soft. No rebound, guarding or tenderness. No organomegaly. Extremities: No clubbing, cyanosis or edema. +2 pedal pulses bilaterally. Skin: Warm and dry. Results & Data ([facility]) Vital Signs (Past 12 Hours) Vital Signs Temp Pulse Resp BP Pulse Ox 06/23/21 08:54 87 06/23/21 07:47 36.8 C 59 L 18 155/74 H 96 06/23/21 04:45 37 C 73 16 147/86 H 96
[2021-06-23] MEDS: CLOTRIMAZOLE 1% CR 15 GM TUBE EXT SCH ×2 (13:01→20:27)
[2021-06-23] MEDS: NYSTATIN POWDER 15GM BTL EXT SCH ×2 (13:01→20:28)
--- NOTE | 2021-06-23 14:47 | Hospitalist Progress Note ---
Date of Service June 23, 2021 Assessment & Plan (1) Septic joint of right knee joint: Plan: Patient is 75-year-old female with history of chronic atrial fibrillation on Coumadin, SSS s/p pacemaker, CAD s/p PCI to RCA in 1998, DM II, HTN, dyslipidemia, CKD III, h/o Right TKA presented to [facility] for right knee pain and edema and concern for right knee infection, fever. History RLE cellulitis treated 2 weeks ago with improvement. [facility] records: T: 38.1C, BP stable, Pulse 113-140. WBC of 13, Hgb 12.9, lactate and procalcitonin were WNL. CRP elevated at 15. Right knee x-ray obtained today at [facility]: No acute fracture, no acute hardware abnormality. At [facility] ER today ortho had aspirated right knee. Synovial fluid from today's aspiration: synovial fluid: Fluid clarity: Turbid, neutrophil %: 80% (0-25%), total nucleated cell count: 163,160 (0-180 cells/uL), RBC: 80,000 (<2000 cells/uL). E.Coli Septic arthritis/Prosthetic Joint Infection: E.Coli Bacteremia UTI-POA -Blood cultures at [facility] growing E.Coli -Synovial fluid culture at [facility] growing E.coli -Urine Culture growing E.Coli, Klebsiella -S/P I&D ON 06/15/2021 -Patient Received Zosyn, vancomycin IV Zosyn Day #5--> Levaquin + Ceftriaxone IV Day #[address] [facility] infectious disease Will need 6 weeks of IV Ceftriaxone If bacteremia persists, may need CORDELL/Pacemaker removal Repeat Blood Cultures: Negative to date Appreciate Orthopedics Input Will need Prolonged Bactrim treatment for Suppression if DAIR suspected. Will need follow up with ID upon discharge Weight-bear as tolerated PT OT eval: Needs acute Rehab Plan to place PICC line likely on Friday if cultures remain negative May need superintendent terminal Suppressive therapy as per Ortho Right Sided Pneumonia Chest x-ray:Cardiomegaly without overt pulmonary edema. Mild right lung basilar densities suggest atelectasis versus pneumonitis. -sputum culture: Stenotrophomonas On Levaquin Day 6 (2) Chronic atrial fibrillation: Plan: Chronic atrial fibrillation on chronic Coumadin Atrial fibrillation RVR Weaned off of diltiazem drip Continue metoprolol, diltiazem IV Lopressor PRN INR: 2.4 Appreciate Cardiology input Continue Coumadin Tenia Infection Continue Clotrimazole cream (3) Diabetes mellitus, type II: Plan: A1c: 8.0 on 05/28/2021 Insulin-dependent Basal bolus insulin per protocol (4) CAD (coronary artery disease): Plan: S/P PCI to RCA 1998 Continue rosuvastatin, metoprolol tartrate (5) CKD (chronic kidney disease), stage III: Plan: ANNEL on CKD III Baseline 1.0 Cr: 1.38>1.2>0.98 Received IV fluids Monitor renal functions Avoid nephrotoxic agents as able (6) HTN (hypertension): Plan: Continue metoprolol tartrate, Cardizem (7) Sick sinus syndrome: Plan: S/p pacemaker (8) Dyslipidemia: Plan: Continue rosuvastatin DVT Px Coumadin Code Status Full code Follows with Vitaliy Mcmillan for routine care Disposition Acute Rehab as able Admission and Anticipated Discharge Date Admission Date: June 13, 2021 Subjective Patient is seen and examined at bedside Noticed developing Itchy rash Minimal Cough Frustrated about prolonged hospitalization Denies any Knee Pain Also denies chest pain, shortness of breath, dizziness, abdominal pain Review of Systems Review of Systems: All systems reviewed & are unremarkable except as noted in Subjective Physical Exam Physical Exam: Physical Exam: Vitals signs as noted above General Appearance:Obese, no apparent distress Head: normocephalic, Atraumatic Eyes: normal inspection, EOMI Neck: supple, Trachea midline Respiratory/Chest: Normal breath sounds, CTA, No accessory muscle use Cardiovascular: Irregularly irregular, No murmur Abdomen/GI:Soft, Non tender, Bowel sounds present Extremities/Musculoskeletal:normal inspection, R knee dressing, 1+ B/L LE edema Neurologic/Psych:AAOX3, grossly no focal neurological deficits Skin: normal color, warm Results & Data Results & Data ([facility]) Vital Signs (Past 12 Hours) Vital Signs Temp Pulse Resp BP Pulse Ox 06/23/21 11:51 36.5 C 80 19 125/72 97 06/23/21 08:54 87 06/23/21 07:47 36.8 C 59 L 18 155/74 H 96 06/23/21 04:45 37 C 73 16 147/86 H 96 Laboratory Results Short CBC 06/23/21 Range/Units 05:23 WBC 13.78 H (4.8-10.8) K/uL Hgb 9.6 L (12.0-16.0) g/dL Hct 28.7 L (37-47) % Plt Count 398 (130-400) K/uL BMP 06/23/21 05:23 Sodium 136 Potassium 3.7 Chloride 105 Carbon Dioxide 23 BUN 15 Creatinine 0.98 Glucose 128 H Calcium 8.6
[2021-06-23] MEDS: WARFARIN SOD 1 MG TAB PO SCH (15:04)
[2021-06-23] MEDS: DIGOXIN 0.125 MG TAB PO SCH (15:52)
[2021-06-23] MEDS: ALPRAZolam 0.25 MG TABLET PO PRN (20:27)
[2021-06-23] MEDS: GABAPENTIN 100 MG CAP PO SCH (20:28)
[2021-06-24 06:46] LABS: INR 2.5 (0.9-1.1)
[2021-06-24] MEDS: INSULIN ASPART PER UNIT SC SCH ×4 (08:39→21:16)
[2021-06-24] MEDS: METOPROLOL SUCC 50MG EXT REL TAB PO SCH ×2 (09:14→21:11)
[2021-06-24] MEDS: dilTIAZem HCl 60 MG TAB PO SCH ×3 (09:15→21:10)
[2021-06-24] MEDS: CLOTRIMAZOLE 1% CR 15 GM TUBE EXT SCH ×2 (09:17→21:10)
[2021-06-24] MEDS: NYSTATIN POWDER 15GM BTL EXT SCH ×2 (09:17→21:12)
[2021-06-24] MEDS: INSULIN GLARGINE SOLOSTAR 100 UNITS/ML 3 ML PEN SC SCH ×2 (09:20→21:10)
[2021-06-24] MEDS: cefTRIAXone SODIUM 2,000 MG in DEXTROSE 5% 50 ML IV SCH (10:07)
[2021-06-24] MEDS: MULTIVITAMIN TAB PO SCH (10:08)
[2021-06-24] MEDS: ADVANCED PROBIOTIC 1250 MG CAPSULE PO SCH (10:08)
[2021-06-24] MEDS: ROSUVASTATIN CALCIUM 10 MG TAB PO SCH (10:08)
[2021-06-24] MEDS: levoFLOXacin 750 MG TAB PO SCH (12:40)
--- NOTE | 2021-06-24 13:46 | XRay Report ---
SINGLE VIEW CHEST CLINICAL HISTORY: Dyspnea FINDINGS: An AP, portable, upright chest radiograph is compared to study dated 06/16/2021. A 2-lead car diac pacemaker is unchanged in position and partially obscures the left lower chest. The heart is enl arged. The pulmonary vasculature is noncongested. Chronic interstitial thickening is similar to previ ous. There is minimal bibasilar atelectasis. The lungs and pleural spaces are otherwise clear. No pne umothorax is seen. The skeletal structures are osteopenic. The bony thorax is grossly intact. Arthrit ic change is noted in the shoulders with postoperative change in the right humeral head. IMPRESSION: 1. Cardiomegaly and cardiac pacemaker with no radiographic evidence of congestive failure. 2. No airspace consolidation or large pleural effusion is identified. ACT 112: Negative or not required by law. Electronically signed by: Holden Owens M.D. 06/24/2021 1:44 PM
[2021-06-24] MEDS ORDERED: COUGH DROP (SUGAR FREE) LOZ 24 LOZ/1 BOX BUCCAL ONE (15:11)
--- NOTE | 2021-06-24 15:52 | Hospitalist Progress Note ---
Date of Service June 24, 2021 Assessment & Plan (1) Septic joint of right knee joint: Plan: Patient is 75-year-old female with history of chronic atrial fibrillation on Coumadin, SSS s/p pacemaker, CAD s/p PCI to RCA in 1998, DM II, HTN, dyslipidemia, CKD III, h/o Right TKA presented to [facility] as transfer from [facility] ER for right knee pain and edema and concern for right knee infection, fever. History RLE cellulitis treated 2 weeks ago with improvement. [facility] records: T: 38.1C, BP stable, Pulse 113-140. WBC of 13, Hgb 12.9, lactate and procalcitonin were WNL. CRP elevated at 15. Right knee x-ray obtained today at [facility]: No acute fracture, no acute hardware abnormality. At [facility] ER today ortho had aspirated right knee. Synovial fluid from today's aspiration: synovial fluid: Fluid clarity: Turbid, neutrophil %: 80% (0-25%), total nucleated cell count: 163,160 (0-180 cells/uL), RBC: 80,000 (<2000 cells/uL). E.Coli Septic arthritis/Prosthetic Joint Infection: E.Coli Bacteremia UTI-POA -Blood cultures at [facility] growing E.Coli -Synovial fluid culture at [facility] growing E.coli -Urine Culture growing E.Coli, Klebsiella -S/P I&D ON 06/15/2021 -Patient Received Zosyn, vancomycin IV Zosyn Day #5--> Levaquin--completed 7 day course Continue Ceftriaxone IV Day #7 Consulted [facility] infectious disease Will need 6 weeks of IV Ceftriaxone If bacteremia persists, may need CORDELL/Pacemaker removal Repeat Blood Cultures: Negative to date Appreciate Orthopedics Input Will need Prolonged Bactrim treatment for Suppression if DAIR suspected. Will need follow up with ID upon discharge Weight-bear as tolerated PT OT eval: Needs acute Rehab Plan to place PICC line likely on Friday if cultures remain negative May need fpc Suppressive therapy as per Ortho Continue current management Right Sided Pneumonia Chest x-ray:Cardiomegaly without overt pulmonary edema. Mild right lung basilar densities suggest atelectasis versus pneumonitis. -sputum culture: Stenotrophomonas Completed Levaquin course (2) Chronic atrial fibrillation: Plan: Chronic atrial fibrillation on chronic Coumadin Atrial fibrillation RVR Weaned off of diltiazem drip Continue metoprolol, diltiazem IV Lopressor PRN INR: 2.5 Appreciate Cardiology input Continue Coumadin Tenia Infection Continue Clotrimazole cream (3) Diabetes mellitus, type II: Plan: A1c: 8.0 on 05/28/2021 Insulin-dependent Basal bolus insulin per protocol (4) CAD (coronary artery disease): Plan: S/P PCI to RCA 1998 Continue rosuvastatin, metoprolol tartrate (5) CKD (chronic kidney disease), stage III: Plan: ANNEL on CKD III Baseline 1.0 Cr: 1.38>1.2>0.98 Received IV fluids Monitor renal functions Avoid nephrotoxic agents as able (6) HTN (hypertension): Plan: Continue metoprolol tartrate, Cardizem (7) Sick sinus syndrome: Plan: S/p pacemaker (8) Dyslipidemia: Plan: Continue rosuvastatin DVT Px Coumadin Code Status Full code Follows with Vitaliy Mcmillan for routine care Disposition Acute Rehab as able Admission and Anticipated Discharge Date Admission Date: June 13, 2021 Subjective Patient is seen and examined at bedside Noticed developing Itchy rash Minimal Cough Frustrated about prolonged hospitalization Denies any Knee Pain Also denies chest pain, shortness of breath, dizziness, abdominal pain Review of Systems Review of Systems: All systems reviewed & are unremarkable except as noted in Subjective Physical Exam Physical Exam: Physical Exam: Vitals signs as noted above General Appearance:Obese, no apparent distress Head: normocephalic, Atraumatic Eyes: normal inspection, EOMI Neck: supple, Trachea midline Respiratory/Chest: Normal breath sounds, CTA, No accessory muscle use Cardiovascular: Irregularly irregular, No murmur Abdomen/GI:Soft, Non tender, Bowel sounds present Extremities/Musculoskeletal:normal inspection, R knee dressing, 1+ B/L LE edema Neurologic/Psych:AAOX3, grossly no focal neurological deficits Skin: normal color, warm Results & Data Results & Data ([facility]) Vital Signs (Past 12 Hours) Vital Signs Temp Pulse Pulse Resp BP BP Pulse Ox 06/24/21 11:50 36.8 C 71 18 147/72 H 96 06/24/21 08:26 36.6 C 100 H 18 129/74 98 06/24/21 08:00 88 06/24/21 04:02 37.1 C 87 16 151/73 H 95
[2021-06-24] MEDS: DIGOXIN 0.125 MG TAB PO SCH (17:56)
[2021-06-24] MEDS: WARFARIN SOD 1 MG TAB PO SCH (17:57)
[2021-06-24] MEDS: GABAPENTIN 100 MG CAP PO SCH (21:08)
[2021-06-24] MEDS: ALPRAZolam 0.25 MG TABLET PO PRN (22:17)
[2021-06-25 06:35] LABS: Hematocrit (blood only) 30.7 % (37-47); Hemoglobin 10.2 g/dL (12.0-16.0); Mean Corpuscular Hemoglobin 29.3 pg (25-34); Mean Corpuscular Hgb Conc 33.2 g/dL (32-36); Mean Corpuscular Volume 88.2 fL (80-100); Mean Platelet Volume 8.5 fL (7.4-10.4); Platelet Count 421 K/uL (130-400); RDW Coefficient of Variation 14.4 % (11.5-14.5); RDW Standard Deviation 46.3 fL (36.4-46.3); Red Blood Count 3.48 M/uL (4.2-5.4); White Blood Count 13.14 K/uL (4.8-10.8)
[2021-06-25 06:51] LABS: BUN Creatinine Ratio 12.4 (10-20); Calcium 8.9 mg/dl (8.5-10.1); Creatinine Clr Calc Pharmacy 49.4 ml/min; Est GFR (African American) 55.1 ml/min; Est GFR (Non-African American) 47.5 ml/min; Potassium 3.5 mmol/L (3.5-5.1)
[2021-06-25 07:02] LABS: INR 2.2 (0.9-1.1); Prothrombin Time 22.6 Seconds (9.0-12.0)
[2021-06-25] MEDS: INSULIN ASPART PER UNIT SC SCH ×4 (08:17→22:05)
[2021-06-25] MEDS: cefTRIAXone SODIUM 2,000 MG in DEXTROSE 5% 50 ML IV SCH (08:20)
[2021-06-25] MEDS: CLOTRIMAZOLE 1% CR 15 GM TUBE EXT SCH ×2 (08:20→22:08)
[2021-06-25] MEDS: ROSUVASTATIN CALCIUM 10 MG TAB PO SCH (08:21)
[2021-06-25] MEDS: dilTIAZem HCl 60 MG TAB PO SCH ×3 (08:21→22:07)
[2021-06-25] MEDS: MULTIVITAMIN TAB PO SCH (08:22)
[2021-06-25] MEDS: METOPROLOL SUCC 50MG EXT REL TAB PO SCH ×2 (08:23→22:08)
[2021-06-25] MEDS: ADVANCED PROBIOTIC 1250 MG CAPSULE PO SCH (08:24)
[2021-06-25] MEDS: NYSTATIN POWDER 15GM BTL EXT SCH ×2 (08:24→22:09)
[2021-06-25] MEDS: INSULIN GLARGINE SOLOSTAR 100 UNITS/ML 3 ML PEN SC SCH ×2 (08:25→22:06)
[2021-06-25] MEDS: oxyCODONE/ACETAMINOPHEN 5mg/325mg TAB PO PRN (14:00)
--- NOTE | 2021-06-25 15:17 | Hospitalist Progress Note ---
Date of Service June 25, 2021 Assessment & Plan (1) Septic joint of right knee joint: Plan: Patient is 75-year-old female with history of chronic atrial fibrillation on Coumadin, SSS s/p pacemaker, CAD s/p PCI to RCA in 1998, DM II, HTN, dyslipidemia, CKD III, h/o Right TKA presented to [facility] as transfer from [facility] ER for right knee pain and edema and concern for right knee infection, fever. History RLE cellulitis treated 2 weeks ago with improvement. [facility] records: T: 38.1C, BP stable, Pulse 113-140. WBC of 13, Hgb 12.9, lactate and procalcitonin were WNL. CRP elevated at 15. Right knee x-ray obtained today at [facility]: No acute fracture, no acute hardware abnormality. At [facility] ER today ortho had aspirated right knee. Synovial fluid from today's aspiration: synovial fluid: Fluid clarity: Turbid, neutrophil %: 80% (0-25%), total nucleated cell count: 163,160 (0-180 cells/uL), RBC: 80,000 (<2000 cells/uL). E.Coli Septic arthritis/Prosthetic Joint Infection: E.Coli Bacteremia UTI-POA -Blood cultures at [facility] growing E.Coli -Synovial fluid culture at [facility] growing E.coli -Urine Culture growing E.Coli, Klebsiella -S/P I&D ON 06/15/2021 -Patient Received Zosyn, vancomycin IV Zosyn Day #5--> Levaquin--completed 7 day course Continue Ceftriaxone IV Day #8 Consulted [facility] infectious disease Will need 6 weeks of IV Ceftriaxone If bacteremia persists, may need CORDELL/Pacemaker removal Repeat Blood Cultures: Negative to date Appreciate Orthopedics Input Will need Prolonged Bactrim treatment for Suppression if DAIR suspected. Will need follow up with ID upon discharge Weight-bear as tolerated PT OT eval: Needs acute Rehab May need adjunct faculty for medical terminology Suppressive therapy as per Ortho Needs follow-up with orthopedics upon discharge PICC line placement today Right Sided Pneumonia Chest x-ray:Cardiomegaly without overt pulmonary edema. Mild right lung basilar densities suggest atelectasis versus pneumonitis. -sputum culture: Stenotrophomonas Completed Levaquin course (2) Chronic atrial fibrillation: Plan: Chronic atrial fibrillation on chronic Coumadin Atrial fibrillation RVR Weaned off of diltiazem drip Continue metoprolol, diltiazem IV Lopressor PRN INR: 2.2 Appreciate Cardiology input Continue Coumadin Tenia Infection Continue Clotrimazole cream (3) Diabetes mellitus, type II: Plan: A1c: 8.0 on 05/28/2021 Insulin-dependent Basal bolus insulin per protocol (4) CAD (coronary artery disease): Plan: S/P PCI to RCA 1998 Continue rosuvastatin, metoprolol tartrate (5) CKD (chronic kidney disease), stage III: Plan: ANNEL on CKD III Baseline 1.0 Cr: 1.38>1.1 Received IV fluids Monitor renal functions Avoid nephrotoxic agents as able (6) HTN (hypertension): Plan: Continue metoprolol tartrate, Cardizem (7) Sick sinus syndrome: Plan: S/p pacemaker (8) Dyslipidemia: Plan: Continue rosuvastatin DVT Px Coumadin Code Status Full code Follows with Vitaliy Mcmillan for routine care Disposition Needs Rehab Placement Case management to help with placement Admission and Anticipated Discharge Date Admission Date: June 13, 2021 Subjective Patient is seen and examined at bedside No new complaints Less cough today Denies any significant Knee Pain Also denies chest pain, shortness of breath, dizziness, abdominal pain Planned for PICC line placement Needs Rehab Placement Review of Systems Review of Systems: All systems reviewed & are unremarkable except as noted in Subjective Physical Exam Physical Exam: Physical Exam: Vitals signs as noted above General Appearance:Obese, no apparent distress Head: normocephalic, Atraumatic Eyes: normal inspection, EOMI Neck: supple, Trachea midline Respiratory/Chest: Normal breath sounds, CTA, No accessory muscle use Cardiovascular: Irregularly irregular, No murmur Abdomen/GI:Soft, Non tender, Bowel sounds present Extremities/Musculoskeletal:normal inspection, R knee dressing, 1+ B/L LE edema Neurologic/Psych:AAOX3, grossly no focal neurological deficits Skin: normal color, warm Results & Data Results & Data ([facility]) Vital Signs (Past 12 Hours) Vital Signs Temp Pulse Resp BP BP Pulse Ox 06/25/21 12:00 36.8 C 87 18 144/69 H 97 06/25/21 07:36 36.9 C 85 19 151/83 H 95 06/25/21 04:34 36.9 C 84 16 151/75 H 98 Laboratory Results Short CBC 06/25/21 Range/Units 06:19 WBC 13.14 H (4.8-10.8) K/uL Hgb 10.2 L (12.0-16.0) g/dL Hct 30.7 L (37-47) % Plt Count 421 H (130-400) K/uL BMP 06/25/21 06:19 Sodium 138 Potassium 3.5 Chloride 104 Carbon Dioxide 26 BUN 14 Creatinine 1.13 Glucose 97 Calcium 8.9
--- NOTE | 2021-06-25 15:23 | XRay Report ---
XR chest 1V portable HISTORY: 75 years-old Female PICC LINE PLACEMENT status post placement of a right-sided PICC COMPARISON: Chest radiograph 06/24/2001 TECHNIQUE: Portable AP view of the chest FINDINGS: Left subclavian pacer. The heart is mildly enlarged. Status post placement of a right-sided PICC with distal tip terminating in expected location of the right atrium. There is no postprocedural pneumoth orax. No pleural effusion, airspace consolidation or overt pulmonary edema. Degenerative changes of t he shoulders and spine. Surgical anchor of the right humeral head. IMPRESSION: Status post placement of a right-sided PICC with distal tip overlying the right atrium. N o postprocedural pneumothorax. ACT 112: Negative or not required by law. The above report was generated using voice recognition software. It may contain grammatical, syntax o r spelling errors. Electronically signed by: Aric Chopra M.D. 06/25/2021 3:21 PM
--- NOTE | 2021-06-25 16:09 | XRay Report ---
XR chest 1V portable HISTORY: 75 years-old Female PICC line adjustment status post placement of a right-sided PICC COMPARISON: Chest radiograph of same day at 2:32 PM TECHNIQUE: Portable AP view of the chest FINDINGS: Cardiac silhouette is enlarged. Left subclavian pacer. Repositioned right-sided PICC with distal tip noted in the expected location of the inferior SVC. No pneumothorax, pleural effusion, airspace conso lidation or overt pulmonary edema. Surgical anchor of the right proximal humerus. Degenerative change s of the shoulders and spine. IMPRESSION: Repositioned right-sided PICC now with the distal tip in the expected location of the inf erior SVC. ACT 112: Negative or not required by law. The above report was generated using voice recognition software. It may contain grammatical, syntax o r spelling errors. Electronically signed by: Aric Chopra M.D. 06/25/2021 4:08 PM
[2021-06-25] MEDS: WARFARIN SOD 1 MG TAB PO SCH (16:59)
[2021-06-25] MEDS: DIGOXIN 0.125 MG TAB PO SCH (17:10)
[2021-06-25] MEDS: GABAPENTIN 100 MG CAP PO SCH (22:07)
[2021-06-25] MEDS: ALPRAZolam 0.25 MG TABLET PO PRN (22:07)
[2021-06-26] MEDS: oxyCODONE/ACETAMINOPHEN 5mg/325mg TAB PO PRN ×2 (00:46→12:40)
[2021-06-26] MEDS: CLOTRIMAZOLE 1% CR 15 GM TUBE EXT SCH ×2 (02:47→08:30)
[2021-06-26 06:44] LABS: INR 2.1 (0.9-1.1); Prothrombin Time 21.9 Seconds (9.0-12.0)
[2021-06-26] MEDS: MULTIVITAMIN TAB PO SCH (08:27)
[2021-06-26] MEDS: cefTRIAXone SODIUM 2,000 MG in DEXTROSE 5% 50 ML IV SCH (08:27)
[2021-06-26] MEDS: ADVANCED PROBIOTIC 1250 MG CAPSULE PO SCH (08:28)
[2021-06-26] MEDS: ROSUVASTATIN CALCIUM 10 MG TAB PO SCH (08:28)
[2021-06-26] MEDS: dilTIAZem HCl 60 MG TAB PO SCH ×2 (08:29→12:38)
[2021-06-26] MEDS: NYSTATIN POWDER 15GM BTL EXT SCH (08:29)
[2021-06-26] MEDS: METOPROLOL SUCC 50MG EXT REL TAB PO SCH (08:29)
[2021-06-26] MEDS: INSULIN ASPART PER UNIT SC SCH ×2 (08:40→12:00)
[2021-06-26] MEDS: INSULIN GLARGINE SOLOSTAR 100 UNITS/ML 3 ML PEN SC SCH (08:41)
--- NOTE | 2021-06-26 09:40 | Communication Note ---
Date of Service: June 26, 2021 Chele dressing removed from right knee. Staple line intact. No erythema. Minimal to no drainage. Continue to keep the wound covered with 4 x 4's. [place] nue chemo for now. Follow-up in the next [address] Tran for wound check.
--- NOTE | 2021-06-26 12:20 | Hospitalist Progress Note ---
Date of Service June 26, 2021 Assessment & Plan (1) Septic joint of right knee joint: Plan: Patient is 75-year-old female with history of chronic atrial fibrillation on Coumadin, SSS s/p pacemaker, CAD s/p PCI to RCA in 1998, DM II, HTN, dyslipidemia, CKD III, h/o Right TKA presented to [facility] as transfer from [facility] ER for right knee pain and edema and concern for right knee infection, fever. History RLE cellulitis treated 2 weeks ago with improvement. [facility] records: T: 38.1C, BP stable, Pulse 113-140. WBC of 13, Hgb 12.9, lactate and procalcitonin were WNL. CRP elevated at 15. Right knee x-ray obtained today at [facility]: No acute fracture, no acute hardware abnormality. At [facility] ER today ortho had aspirated right knee. Synovial fluid from today's aspiration: synovial fluid: Fluid clarity: Turbid, neutrophil %: 80% (0-25%), total nucleated cell count: 163,160 (0-180 cells/uL), RBC: 80,000 (<2000 cells/uL). E.Coli Septic arthritis/Prosthetic Joint Infection: E.Coli Bacteremia UTI-POA -Blood cultures at [facility] growing E.Coli -Synovial fluid culture at [facility] growing E.coli -Urine Culture growing E.Coli, Klebsiella -S/P I&D ON 06/15/2021 -Patient Received Zosyn, vancomycin IV Zosyn Day #5--> Levaquin--completed 7 day course Continue Ceftriaxone IV Day #9 Consulted [facility] infectious disease Will need 6 weeks of IV Ceftriaxone If bacteremia persists, may need CORDELL/Pacemaker removal Repeat Blood Cultures: Negative to date Appreciate Orthopedics Input Will need Prolonged Bactrim or Augmentin treatment for Suppression after completion of IV antibiotics Will need follow up with ID upon discharge Weight-bear as tolerated PT OT eval: Needs acute Rehab Will likely need adjunct faculty for medical terminology Suppressive therapy as per Ortho Needs follow-up with orthopedics upon discharge PICC line placed on 06/25/21 Plan to discharge to Rehab facility today Right Sided Pneumonia Chest x-ray:Cardiomegaly without overt pulmonary edema. Mild right lung basilar densities suggest atelectasis versus pneumonitis. -sputum culture: Stenotrophomonas Completed Levaquin course (2) Chronic atrial fibrillation: Plan: Chronic atrial fibrillation on chronic Coumadin Atrial fibrillation RVR Weaned off of diltiazem drip Continue metoprolol, diltiazem IV Lopressor PRN INR: 2.1 Appreciate Cardiology input Continue Coumadin Tenia Infection Continue Clotrimazole cream (3) Diabetes mellitus, type II: Plan: A1c: 8.0 on 05/28/2021 Insulin-dependent Basal bolus insulin per protocol (4) CAD (coronary artery disease): Plan: S/P PCI to RCA 1998 Continue rosuvastatin, metoprolol tartrate (5) CKD (chronic kidney disease), stage III: Plan: ANNEL on CKD III Baseline 1.0 Cr: 1.38>1.1 Received IV fluids Monitor renal functions Avoid nephrotoxic agents as able (6) HTN (hypertension): Plan: Continue metoprolol tartrate, Cardizem (7) Sick sinus syndrome: Plan: S/p pacemaker (8) Dyslipidemia: Plan: Continue rosuvastatin DVT Px Coumadin Code Status Full code Follows with Vitaliy Mcmillan for routine care Disposition Rehab today Admission and Anticipated Discharge Date Admission Date: June 13, 2021 Subjective Patient is seen and examined at bedside Wound Vac was removed today Discussed with Orthopedics today No new complaints Denies chest pain, shortness of breath, dizziness, abdominal pain Plan to discharge to Rehab facility today Review of Systems Review of Systems: All systems reviewed & are unremarkable except as noted in Subjective Physical Exam Physical Exam: Physical Exam: Vitals signs as noted above General Appearance:Obese, no apparent distress Head: normocephalic, Atraumatic Eyes: normal inspection, EOMI Neck: supple, Trachea midline Respiratory/Chest: Normal breath sounds, CTA, No accessory muscle use Cardiovascular: Irregularly irregular, No murmur Abdomen/GI:Soft, Non tender, Bowel sounds present Extremities/Musculoskeletal:normal inspection, R knee dressing, 1+ B/L LE edema Neurologic/Psych:AAOX3, grossly no focal neurological deficits Skin: normal color, warm Results & Data Results & Data ([facility]) Vital Signs (Past 12 Hours) Vital Signs Temp Pulse Pulse Resp BP BP Pulse Ox 06/26/21 08:00 36.8 C 96 H 20 121/74 95 06/26/21 03:50 36.8 C 80 14 137/52 L 98 06/26/21 00:16 36.4 C L 65 16 131/51 L 95
--- NOTE | 2021-06-26 12:53 | Discharge Summary ---
Date of Service June 26, 2021 Admission HPI Per Admitting Provider Patient is 75-year-old female with history of chronic atrial fibrillation on Coumadin, SSS s/p pacemaker, CAD s/p PCI to RCA in 1998, DM II, HTN, dyslipidemia, CKD III, h/o Right TKA presented to [facility] as transfer from [facility] ER for right knee pain and edema and concern for right knee infection. Outpatient records reviewed. Patient presented to [facility] ER today for right knee pain for 1 day and fever. Was noted to have T: 38.1C, BP stable, Pulse 113-140. Labs completed there today with WBC of 13, Hgb 12.9, lactate and procalcitonin were WNL. INR: 2.7, CRP elevated at 15. Right knee x-ray obtained today at [facility]: No acute fracture, no acute hardware abnormality. At [facility] ER today ortho had aspirated right knee with reported purulent fluid. Synovial fluid from today's aspiration: synovial fluid: Fluid clarity: Turbid, neutrophil %: 80% (0-25%), total nucleated cell count: 163,160 (0-180 cells/uL), RBC: 80,000 (<2000 cells/uL). Blood cultures were drawn today. Patient was given dose of Zosyn and vancomycin. Was given morphine 4mg, toradol 15mg, 1L NSS. Higher level of Ortho care was unavailable at [facility], patient request to be transferred to an [facility] secondary to prior TKA done by [facility]. Patient was admitted to [facility] on 05/27/2021- 05/30/2021 for possible sepsis, right lower extremity cellulitis. Patient had negative blood cultures on 05/27/2021. Patient finished linezolid 2 days ago. She denies any CP, SOB, palpitations. Other than her right knee pain denies other complaints. Did not have home medications today. Denies N/V/D/C, RAMIREZ, dizziness, syncope, vision changes, neck pain, orthopnea, cough, sore throat, choking, otalgia, rhinorrhea, abdominal pain, paresthesias, weakness, extremity weakness, rashes, urinary symptoms. Admission Exam Per Admitting Provider Physical Exam Physical Exam: General: no distress, obese Head: normocephalic, atraumatic Eyes: conjunctiva non-injected, anicteric ENT: normal inspection external ears, nose, mucous membranes moist Neck: supple, trachea midline Lungs: clear, no respiratory distress, no wheezing/rhonchi/rales CV: irregularly irregular, rate 132, no murmur, 1+ pretibial edema Abd: protuberant, normal BS, soft, non-tender Ext: no cyanosis, no calf tenderness, no erythema of lower legs, RLE: +edema and tenderness to palpation right knee Neuro: A&O x 3, no focal deficits noted, normal affect Skin: warm, dry Principal Diagnosis Septic Right TKA E.Coli Bacteremia Urinary Tract Infection Pneumonia Atrial fibrillation with rapid ventricular response. Tenia Infection Acute Kidney Injury Discharge Data Allergies Allergy/AdvReac Type Severity Reaction Status Date / Time propoxyphene Allergy Mild RASH Verified 04/21/09 03:21 diazepam Allergy Unknown SENSITIVITY Verified 04/21/09 03:21 meperidine AdvReac Mild "FEEL Verified 04/21/09 03:21 WEIRD" Consultations 06/13/21 13:58 Consult Orthopedic Surgery Routine 06/14/21 08:39 Consult Cardiology Routine 06/16/21 15:04 Consult Infectious Diseases Routine Procedures Performed Operation Date: 06/14/21 07:55 <No data on this case meets the specified criteria> Operation Date: 06/15/21 11:10 Actual Procedures p Right Knee Open Synovectomy, Polyethylene Exchange and Placement Antibiotic Beads(Right) - Josiah Tran MD s Right Knee Incision and Drainage(Right) - Josiah Tran MD Hospital Course (1) Septic joint of right knee joint: Patient is 75-year-old female with history of chronic atrial fibrillation on Coumadin, SSS s/p pacemaker, CAD s/p PCI to RCA in 1998, DM II, HTN, dy slipidemia, CKD III, h/o Right TKA presented to [facility] as transfer from [facility] ER for right knee pain and edema and concern for right knee infection, fever. History RLE cellulitis treated 2 weeks ago with improvement. [facility] records: T: 38.1C, BP stable, Pulse 113-140. WBC of 13, Hgb 12.9, lactate and procalcitonin were WNL. CRP elevated at 15. Right knee x-ray obtained today at [facility]: No acute fracture, no acute hardware abnormality. At [facility] ER today ortho had aspirated right knee. Synovial fluid from today's aspiration: synovial fluid: Fluid clarity: Turbid, neutrophil %: 80% (0-25%), total nucleated cell count: 163,160 (0-180 cells/uL), RBC: 80,000 (<2000 cells/uL). E.Coli Septic arthritis/Prosthetic Joint Infection: E.Coli Bacteremia UTI-POA -Blood cultures at [facility] growing E.Coli -Synovial fluid culture at [facility] growing E.coli -Urine Culture growing E.Coli, Klebsiella -S/P I&D ON 06/15/2021 -Patient Received Zosyn, vancomycin IV Zosyn Day #5--> Levaquin--completed 7 day course Continue Ceftriaxone IV Day #9 Consulted [facility] infectious disease Will need 6 weeks of IV Ceftriaxone If bacteremia persists, may need CORDELL/Pacemaker removal Repeat Blood Cultures: Negative to date Appreciate Orthopedics Input Will need Prolonged Bactrim or Augmentin treatment for Suppression after completion of IV antibiotics Will need follow up with ID upon discharge Weight-bear as tolerated PT OT eval: Needs acute Rehab Will likely need snf Suppressive therapy as per Ortho Needs follow-up with orthopedics upon discharge PICC line placed on 06/25/21 Plan to discharge to Rehab facility today Right Sided Pneumonia Chest x-ray:Cardiomegaly without overt pulmonary edema. Mild right lung basilar densities suggest atelectasis versus pneumonitis. -sputum culture: Stenotrophomonas Completed Levaquin course (2) Chronic atrial fibrillation: Chronic atrial fibrillation on chronic Coumadin Atrial fibrillation RVR Weaned off of diltiazem drip Continue metoprolol, diltiazem IV Lopressor PRN INR: 2.1 Appreciate Cardiology input Continue Coumadin Tenia Infection Continue Clotrimazole cream (3) Diabetes mellitus, type II: A1c: 8.0 on 05/28/2021 Insulin-dependent Basal bolus insulin per protocol (4) CAD (coronary artery disease): S/P PCI to RCA 1998 Continue rosuvastatin, metoprolol tartrate (5) CKD (chronic kidney disease), stage III: ANNEL on CKD III Baseline 1.0 Cr: 1.38>1.1 Received IV fluids Monitor renal functions Avoid nephrotoxic agents as able (6) HTN (hypertension): Continue metoprolol tartrate, Cardizem (7) Sick sinus syndrome: S/p pacemaker (8) Dyslipidemia: Continue rosuvastatin DVT Px Coumadin Code Status Full code Follows with Vitaliy Mcmillan for routine care Disposition Rehab today Total Time Total Time Spent Total Time Spent (In Minutes): 50 minutes Discharge Plan Discharge Items Patient Disposition: Transfer [facility] Reason For Visit: SEPTIC RT KNEE JOINT Discharge Diagnosis: Septic Right TKA E.Coli Bacteremia Urinary Tract Infection Pneumonia Atrial fibrillation with rapid ventricular response. Tenia Infection Acute Kidney Injury Activity: Per Instructions section Exercise/Sports: Gradually increase as tolerated Weightbearing: Right weightbearing Weightbearing Comment: as tolerated with walker Non-emergency contact: Primary Care Provider, Surgeon and Specialist Call non-emergency contact if: you have any medication questions, your symptoms worsen, your pain is not controlled, your pain is concerning for you, you have a fever, your temperature is above 101.5, your wound has increased redness and your wound has increased drainage Follow-up/Referrals: Tahir Pino [Primary Care Provider] - Josiah Tran MD [Surgeon] - (Follow up with Dr Tran in 10-14 days from the day of your surgery for your first wound check. ) Diet: Carb Consistent or DM2 and Heart Healthy Addtl Attending Provider Instructions: Follow up with your primary care physician Dr. Haro in 1 week upon discharge from rehab facility Follow-up with your orthopedic surgeon in 1 week Follow-up with your infectious disease Dr.James Khanna in 1 month for further management of your infection after completion of IV antibiotics Follow-up with your director stage Dr. Navarro in 3 to 4 weeks. ---Continue IV Ceftriaxone 2,000 mg daily to complete 6 weeks of IV antibiotics. (Last day July 30, 2021). Further management as per Infectious disease after completion of IV antibiotics. --Monitor your INR at rehab facility and adjust your Coumadin as needed. Target INR is 2-3. (Your INR is 2.1 today--06/26/21). Take 2 mg Coumadin today. Seek immediate medical attention if your symptoms reoccur or worsen Please take all medications as instructed on discharge list below. Please call if you have any questions or problems. You can reach a [facility] hospitalist on duty at [facility] 24 hours a day by calling [phone] Add Sole Polisher Provider Instructions: ACTIVITY RECOMMENDATIONS: SELF CARE INSTRUCTIONS AFTER KNEE IRRIGATION/POLYETHLYLENE BEARING CHANGE. A. You may need to continue a physical therapy program after discharge from the hospital. There are several options available to you. Your doctor will assist you in selecting the best one for you. 1. An out-patient facility 2 to 3 times a week for therapy or home therapy. 2. Continue working on all exercises taught to you in the hospital. Your goals should be to increase bending of your knee to 90 degrees and beyond and to fully straighten your knee. B. You may progress at your own pace from walking with a walker or crutches to a cane; then to no assistive devices. C. Make walking a part of your daily routine. Be up as much as comfortable with rest periods throughout the day. Rest with leg elevation is very important. Use the ice wrap frequently for the first 3-4 weeks. D. There are no restrictions on activities. You may ride in a car, shop, participate in plastic top assembler and all social activities. E. Wear the long elastic stockings (SEDA hose) 20 hours a day for 2 weeks after surgery. They can be removed several times a day for laundering and for a bath. F. You may shower, no tub baths until cleared by your doctor. SPECIAL CARE INSTRUCTIONS: VERY IMPORTANT TO READ AND REVIEW A. There are a few signs you need to watch for after you are home. Call [facility] if you notice any of the followin. Increased severe knee pain. Some pain is expected especially when you exercise. 2. Increased swelling in your leg or knee; pain or swelling of the calf muscle in either lower leg. 3. Any fluid drainage from the incision. 4. Shortness of breath or chest pain. B. Please call [facility] at if you have any concerns or questions about your operation or recovery. The doctor or his nurse will return your call promptly. C. You must take antibiotics before dental work, bladder, bowel or other surgery. Your doctor will provide you with a permanent care to carry describing this precaution. IMPORTANT: *DVT prophylaxis: Resume home Coumadin * CALL IF INCREASED PAIN, REDNESS, DRAINAGE OR FEVER GREATER THAT 101. * WEAR SEDA HOSE 20 HOURS PER DAY FOR 2 WEEKS. This is a large suction dressing covering your incision. This will help pull any excess drainage from the wound and allow your incision to heal properly. You may shower with this if you can keep the unit outside of the shower. If any bleeding or leakage is noted please call your doctor's office. This will remain on your incision for 7 days and then should be removed. This can be done yourself or by the home nursing staff if applicable. The entire unit is disposable once removed. Once removed, keep incision clean and dry. If redness or drainage is noted, please call your surgeon. IF INCISION IS LEAKING THROUGH DRESSING, CALL THE OFFICE . FOLLOW UP VISIT: If appointment is not already scheduled: Please call [facility] to make a follow-up appointment for 2 weeks after your surgery at . Pending Studies at Discharge: No Stand-Alone Forms: My [facility] [address] Skilled Items Patient informed of condition?: Yes DNR: No Discharge Level of Care: Skilled Communicable Disease: No Discharge Prognosis: Stable Lines: None Urinary Catheter: No Medications and DC Order Prescriptions: New digoxin [Digitek] 125 mcg (0.125 mg) Tablet 0.125 mg PO DAILY@1600 Qty: 30 RF: 0 diltiazem HCl 60 mg Tablet 60 mg PO TID Qty: 90 RF: 0 metoprolol succinate 200 mg tablet extended release 24 hr 200 mg PO BID Qty: 60 RF: 0 oxycodone-acetaminophen [Percocet] 5-325 mg Tablet 1 tab PO Q8H PRN (Reason: pain) Qty: 10 RF: 0 polyethylene glycol 3350 [Miralax] 17 gram Powder In Packet 17 g PO DAILY PRN (Reason: constipation) Qty: 30 RF: 0 docusate sodium 100 mg Capsule 100 mg PO BID PRN (Reason: constipation) Qty: 60 RF: 0 Advanced Probiotic 625 mg (10 billion cell) Capsule 2 cap PO DAILY Qty: 60 RF: 0 clotrimazole 1 % Cream 1 applic EXT BID 10 Days Qty: 1 RF: 0 ceftriaxone 2 gram recon soln 2 g IV DAILY Qty: 34 RF: 0 Continued alprazolam 0.25 mg tablet 0.25 mg PO HS PRN (Reason: Anxiety) RF: 0 furosemide 40 mg Tablet 40 mg PO DAILY PRN (Reason: Edema) RF: 0 gabapentin 100 mg capsule 100 mg PO HS RF: 0 Lantus Solostar U-100 Insulin 100 unit/mL (3 mL) insulin pen 40 unit SUBCUT BID RF: 0 warfarin 2 mg tablet 2 mg PO UD RF: 0 warfarin 1 mg tablet 1 mg PO UD RF: 0 rosuvastatin 10 mg tablet 10 mg PO DAILY RF: 0 Discontinued metoprolol tartrate 100 mg tablet 100 mg PO BID RF: 0 meloxicam 7.5 mg tablet 7.5 mg PO DAILY RF: 0 Discharge Orders: Discharge Order (Routine); Ordered 06/26/21 Ordered By: Andre Denson Admission Data Admit Date/Time: 06/13/21 13:37 Attending Provider: Andre Denson Admit Provider: Andre Denson Primary Care Provider: Tahir Pino Other Providers: Andre Denson ; Donta Bowles ; Rodrick Del Valle ; Mikey Cardona ; Soledad Blackwood ; Alirio Meadows I. ; Seven Whipple II ; Haritha Lopez ; Emmett Carrizales ; Clement Khanna ; Evelina Sommers
[2021-06-26] MEDS ORDERED: WARFARIN SOD 2 MG TAB PO SCH (16:00)
--- NOTE | 2021-07-03 11:48 | Coding Query ---
SEPSIS Sepsis is documented on the 06/14 Progress Note as, "Sepsis, POA", and the Infectious Disease Consultation documents both Sepsis and Bacteremia, and the Discharge Summary documents E. Coli Bacteremia. It is not clear if Sepsis is still possible or has been ruled-out, and the source for the bacteremia and/or Sepsis has not been specified (source septic right TKA, or UTI, or other). Please specify below, in your clinical opinion. To promote full compliance with coding requirements relating to patient care, physician participation is requested in all cases of customer equipment engineer uncertainty. Please assist us with the question(s) below: In responding to this query, please exercise your independent professional judgement. The fact that a question is asked does not imply that any particular answer is desired or expected. We appreciate your clarification on this issue. Throughout the medical record, you have clearly documented a localized infection and your patient has clinical evidence of a generalized sepsis or severe sepsis. The term urosepsis is a nonspecific entity and is coded as an UTI. If the patient has sepsis, severe sepsis, from an urinary source or some other source, please clarify in your response below. The medical record reflects the following clinical findings: (With dates as appropriate) (Body temperature of >38.3 C(101 F) or <36 C(96.8F), pulse >90/minute, respirations >20/minute, WBC count >12,000 or <4,000, altered mental status, significant edema or positive fluid balance, hyperglycemia without diabetes, hypotension, metabolic acidosis (elev. lactate level, anion gap or reduced blood pH), shock, positive blood culture (enter organism) ____ (x )Bacteremia (Nonspecific laboratory finding of bacteria in the blood) Specify most likely source: ( x ) Septic Right TKA (x ) UTI ( ) Other: Please Specify ( ) Sepsis Specify most likely source: ( x) Septic Right TKA ( x ) UTI ( ) Other: Please Specify () Other, patient has: MTDD
== END 2021-06-26 14:44 | DRG 485 ==
LOC: SUATTDRO 13:37 → 2S 13:37
DX: Z79.01 Long term (current) use of anticoagulants; E78.5 Hyperlipidemia, unspecified; B35.9 Dermatophytosis, unspecified; N17.9 Acute kidney failure, unspecified; Z68.37 Body mass index [BMI] 37.0-37.9, adult; M00.861 Arthritis due to other bacteria, right knee; B96.20 Unspecified Escherichia coli [E. coli] as the cause of diseases classified elsewhere; Z79.1 Long term (current) use of non-steroidal anti-inflammatories (NSAID); Z88.5 Allergy status to narcotic agent; E11.22 Type 2 diabetes mellitus with diabetic chronic kidney disease; T84.53XA Infection and inflammatory reaction due to internal right knee prosthesis, initial encounter; I12.9 Hypertensive chronic kidney disease with stage 1 through stage 4 chronic kidney disease, or unspecified chronic kidney disease; N39.0 Urinary tract infection, site not specified; M89.8X6 Other specified disorders of bone, lower leg; I48.20 Chronic atrial fibrillation, unspecified; Z79.4 Long term (current) use of insulin; N18.30 Chronic kidney disease, stage 3 unspecified; R78.81 Bacteremia; E66.9 Obesity, unspecified; Z88.8 Allergy status to other drugs, medicaments and biological substances; Z95.0 Presence of cardiac pacemaker; E86.0 Dehydration; Z79.899 Other long term (current) drug therapy; I49.5 Sick sinus syndrome; I25.10 Atherosclerotic heart disease of native coronary artery without angina pectoris; F17.210 Nicotine dependence, cigarettes, uncomplicated; J18.9 Pneumonia, unspecified organism